=== PATIENT | female | born 1990 | race Caucasian/White ===

== ENCOUNTER → 2017-12-11 13:54 | Outpatient (REF) | payer MEDICAID, SELFPAY | LOC: LAB 13:54 | PROVIDERS: Visit Provider Physician Assistant | DX: R10.2 Pelvic and perineal pain (principal) | CPT/HCPCS: 87210 ==

== ENCOUNTER → 2018-10-21 17:06 | Outpatient (CLI) | payer MEDICAID, SELFPAY ==
[2018-10-21 17:50] LABS: Basophils % 0.5 % (0.1-2.0); Eosinophils # 0.1 K/mm3 (0.0-0.4); Hematocrit 42.5 % (37.0-47.0); Hemoglobin 14.4 g/dL (12.2-16.2); Lymphocytes % 34.5 % (10-50); Mean Corpuscular HGB Conc 33.9 g/dL (31.8-35.4); Mean Corpuscular Hemoglobin 30.7 pg (27.0-31.2); Mean Corpuscular Volume 90.4 fl (81-99); Mean Platelet Volume 9.2 fl (7.4-10.4); Monocytes # 0.3 K/mm3 (0.1-1.0); Neutrophils # 3.4 K/mm3 (1.8-7.8); Neutrophils % 59.1 % (37.0-80.0); Platelet Count 190 K/mm3 (142-424); Red Cell Distribution Width 13.3 % (11.5-17.5); White Blood Count 5.8 K/mm3 (4.8-10.8)
[2018-10-21 18:13] LABS: Alanine Aminotransferase 26 U/L (12-78); Albumin Level 3.7 gm/dL (3.4-5.0); Albumin/Globulin Ratio 1.2 (1.1-1.8); Alkaline Phosphatase 60 U/L (46-116); Anion Gap 12.7 mEq/L (5-15); Aspartate Amino Transferase 8 U/L (15-37); Bilirubin,Total 0.3 mg/dL (0.2-1.0); Blood Urea Nitrogen 8 mg/dL (7-18); Calcium 8.7 mg/dL (8.5-10.1); Carbon Dioxide 26 mmol/L (21.0-32.0); Chloride 105 mmol/L (98-107); Chol/HDL Ratio 3.4 (1-3.5); Cholesterol 134 mg/dL (140-200); Creatinine,Serum 0.86 mg/dL (0.55-1.02); Estimated Glomerular Filt Rate 78 ml/min (>60); Ferritin 14 ng/mL (8-388); GFR (African American) 94 ML/MIN (>60); Globulin 3.1 gm/dl (1.3-3.2); Glucose 67 mg/dL (74-106); HDL Cholesterol 40 mg/dL (29-89); LDL Cholesterol 79 mg/dL (0-130); Potassium 3.7 mmoL/L (3.5-5.1); Sodium 140 mmol/L (136-145); T4 (Thyroxine) 9.2 ug/dl (4.7-13.3); Thyroid Stimulating Hormone 1.19 uIU/ml (0.358-3.740); Total Protein,Serum 6.8 gm/dL (6.4-8.2); Triglycerides 76 mg/dL (30-200); VLDL Cholesterol 15 mg/dL (0-40)
[2018-10-23 08:28] LABS: Iron 49 ug/dL (27-159); UIBC 288 ug/dL (131-425)
[2018-10-23 14:40] LABS: Folate 4.8 ng/mL (>3.0); Iron Saturation 15 % (15-55); Vitamin B12 273 pg/mL (232-1245); Vitamin D 25 Hydroxy 21.4 ng/mL (30.0-100.0)
== END ==
PROVIDERS: Visit Provider Nurse Practitioner Family
DX: R42 Dizziness and giddiness (principal)
CPT/HCPCS: 80053; 80061; 82607; 82652; 82728; 82746; 83540; 83550; 84436; 84443; 85025

== ENCOUNTER → 2019-02-19 07:52 | Outpatient (CLI) | payer MEDICAID, SELFPAY ==
--- NOTE | 2019-02-19 07:54 | CT_ITS ---
CT head/brain wo con HISTORY: ITS.REASON: dizziness, H/A, vision loss ORDERING PHYSICIAN: KRYSTYNA Pelayo PATIENT AGE: 28 years COMPARISON: None TECHNIQUE: Axial images were obtained. Brain and bone windows reviewed. All CT scans at the facility use one or more dose reduction, viz: automated exposure control, ma/kV adjustment per patient size (including targeted exams where dose is matched to indication, i.e. head), or iterative reconstruction technique. FINDINGS: No midline shift, mass effect, intracranial hemorrhage, hydrocephalus, or extra-axial fluid collection is evident. The calvarium has an unremarkable appearance. No mastoid effusion. No sinus air-fluid levels.. IMPRESSION: Negative CT head without contrast. No acute finding
== END ==
PROVIDERS: PCP Physician Assistant; Visit Provider Physician Assistant
DX: H54.7 Unspecified visual loss (principal); R42 Dizziness and giddiness; R51 Headache
CPT/HCPCS: 70450

== ENCOUNTER → 2019-05-19 14:28 | Outpatient (CLI) | payer MEDICAID, SELFPAY ==
[2019-05-19 14:42] LABS: Basophils % 0.5 % (0.1-2.0); Eosinophils # 0.1 K/mm3 (0.0-0.4); Eosinophils % 0.8 % (0.1-12.0); Hematocrit 42.8 % (37.0-47.0); Hemoglobin 13.7 g/dL (12.2-16.2); Lymphocytes # 1.8 K/mm3 (0.7-4.5); Lymphocytes % 30.9 % (10-50); Mean Corpuscular Hemoglobin 29.7 pg (27.0-31.2); Mean Corpuscular Volume 93.1 fl (81-99); Mean Platelet Volume 9.9 fl (7.4-10.4); Monocytes # 0.4 K/mm3 (0.1-1.0); Neutrophils # 3.5 K/mm3 (1.8-7.8); Neutrophils % 60.8 % (37.0-80.0); Platelet Count 192 K/mm3 (142-424); Red Cell Distribution Width 13.6 % (11.5-17.5); White Blood Count 5.7 K/mm3 (4.8-10.8)
[2019-05-19 15:16] LABS: Alanine Aminotransferase 14 U/L (12-78); Albumin Level 3.8 gm/dL (3.4-5.0); Albumin/Globulin Ratio 1.4 (1.1-1.8); Alkaline Phosphatase 63 U/L (46-116); Anion Gap 14.8 mEq/L (5-15); Aspartate Amino Transferase 11 U/L (15-37); Bilirubin,Total 0.5 mg/dL (0.2-1.0); Blood Urea Nitrogen 7 mg/dL (7-18); Calcium 8.9 mg/dL (8.5-10.1); Carbon Dioxide 24 mmol/L (21.0-32.0); Chloride 105 mmol/L (98-107); Chol/HDL Ratio 3.8 (1-3.5); Cholesterol 122 mg/dL (140-200); Creatinine,Serum 0.71 mg/dL (0.55-1.02); Estimated Glomerular Filt Rate 97 ml/min (>60); GFR (African American) 117 ML/MIN (>60); Globulin 2.7 gm/dl (1.3-3.2); Glucose 82 mg/dL (74-106); HDL Cholesterol 32 mg/dL (29-89); LDL Cholesterol 76 mg/dL (0-130); Potassium 3.8 mmoL/L (3.5-5.1); Sodium 140 mmol/L (136-145); T4 (Thyroxine) 9.5 ug/dl (4.7-13.3); Thyroid Stimulating Hormone 0.73 uIU/ml (0.358-3.740); Total Protein,Serum 6.5 gm/dL (6.4-8.2); Triglycerides 68 mg/dL (30-200); VLDL Cholesterol 14 mg/dL (0-40)
[2019-05-21 16:44] LABS: FSH 4.6 mIU/mL (.); LH 3.1 mIU/mL (.); Prolactin 12.9 ng/mL (4.8-23.3); Vitamin D 25 Hydroxy 26.5 ng/mL (30.0-100.0)
[2019-05-23 07:43] LABS: Estrogen 227 pg/mL (.)
== END ==
PROVIDERS: Visit Provider Physician Assistant
DX: R63.5 Abnormal weight gain (principal); R53.83 Other fatigue; R51 Headache; R11.0 Nausea; R45.4 Irritability and anger; D17.20 Benign lipomatous neoplasm of skin and subcutaneous tissue of unspecified limb; E55.9 Vitamin D deficiency, unspecified; Z72.0 Tobacco use
CPT/HCPCS: 80053; 80061; 82652; 82672; 83001; 83002; 84146; 84436; 84443; 85025

== ENCOUNTER → 2019-06-10 07:54 | Outpatient (CLI) | payer MEDICAID, SELFPAY ==
--- NOTE | 2019-06-10 08:30 | US_ITS ---
PROCEDURE: US ABDOMEN COMPLETE CLINICAL INDICATION: nausea COMPARISON: RUQ US RUQ-(ABD LTD)1ORGAN/QUAD/FU from 12/03/2014 FINDINGS: PANCREAS: Unremarkable. No obvious mass or abnormal fluid collection. No ductal dilatation LIVER: The liver has a somewhat starry night appearance which is nonspecific but could be seen with hepatitis. Common bile duct is normal at 2 mm. Appropriate direction of blood flow noted within the non dilated portal vein RIGHT KIDNEY: Unremarkable. Normal size and echogenicity. No hydronephrosis LEFT KIDNEY: Unremarkable. Normal size and echogenicity. No hydronephrosis GALLBLADDER: Status post cholecystectomy AORTA: No evidence of aneurysmal dilatation. SPLEEN: Unremarkable. Normal size and echogenicity ASCITES: None demonstrated. IMPRESSION: Starry night appearance of the liver which could be seen with hepatitis. Prior cholecystectomy otherwise negative Dictated by: Raman Roque MD 06/10/2019 18:07 Electronically signed by Raman Roque MD in [place] 06/10/2019 18:07
== END ==
PROVIDERS: PCP Physician Assistant; Visit Provider Nurse Practitioner Family
DX: R11.2 Nausea with vomiting, unspecified (principal)
CPT/HCPCS: 76700

== ENCOUNTER → 2019-06-12 15:47 | Outpatient (CLI) | payer MEDICAID, SELFPAY ==
[2019-06-12 15:59] LABS: Basophils % 0.6 % (0.1-2.0); Eosinophils # 0.1 K/mm3 (0.0-0.4); Eosinophils % 1.1 % (0.1-12.0); Hematocrit 49.5 % (37.0-47.0); Hemoglobin 15.7 g/dL (12.2-16.2); Lymphocytes # 1.7 K/mm3 (0.7-4.5); Lymphocytes % 30.8 % (10-50); Mean Corpuscular HGB Conc 31.6 g/dL (31.8-35.4); Mean Corpuscular Volume 94.8 fl (81-99); Mean Platelet Volume 9.3 fl (7.4-10.4); Monocytes # 0.4 K/mm3 (0.1-1.0); Monocytes % 6.5 % (1.7-9.3); Neutrophils # 3.3 K/mm3 (1.8-7.8); Platelet Count 205 K/mm3 (142-424); Red Blood Count 5.23 M/mm3 (4.20-5.40); Red Cell Distribution Width 12.8 % (11.5-17.5); White Blood Count 5.5 K/mm3 (4.8-10.8)
[2019-06-12 17:31] LABS: Alanine Aminotransferase 22 U/L (12-78); Albumin/Globulin Ratio 1.3 (1.1-1.8); Alkaline Phosphatase 67 U/L (46-116); Anion Gap 14.7 mEq/L (5-15); Aspartate Amino Transferase 8 U/L (15-37); Bilirubin,Total 0.4 mg/dL (0.2-1.0); Blood Urea Nitrogen 8 mg/dL (7-18); Calcium 8.9 mg/dL (8.5-10.1); Carbon Dioxide 23 mmol/L (21.0-32.0); Chloride 105 mmol/L (98-107); Creatinine,Serum 0.77 mg/dL (0.55-1.02); Estimated Glomerular Filt Rate 88 ml/min (>60); GFR (African American) 107 ML/MIN (>60); Globulin 3.1 gm/dl (1.3-3.2); Glucose 86 mg/dL (74-106); Potassium 3.7 mmoL/L (3.5-5.1); Sodium 139 mmol/L (136-145); Total Protein,Serum 7.1 gm/dL (6.4-8.2)
[2019-06-14 04:07] LABS: Hep A Ab, IgM Negative (Negative); Hep A Ab, Total Negative (Negative); Hep B Core Ab, Total Negative (Negative)
[2019-06-14 18:52] LABS: Hep B Surface Ab, Qual Non Reactive (.); Hepatitis B Surface Antigen Negative (Negative); Hepatitis C Antibody <0.1 s/co ratio (0.0-0.9)
== END ==
PROVIDERS: Visit Provider Nurse Practitioner Family
DX: R10.9 Unspecified abdominal pain (principal); R42 Dizziness and giddiness; R11.2 Nausea with vomiting, unspecified
CPT/HCPCS: 36415; 80053; 85025; 86704; 86706; 86708; 87340; 87380

== ENCOUNTER → 2019-08-29 13:06 | Outpatient (CLI) | payer OTHER, SELFPAY ==
[2019-08-29 14:00] LABS: Monoscreen (Rapid) Negative (Negative)
== END ==
PROVIDERS: Visit Provider Nurse Practitioner Family
DX: R53.83 Other fatigue (principal)
CPT/HCPCS: 36415; 86318

== ENCOUNTER 2019-12-02 23:38 | Emergency (ER) | payer OTHER, SELFPAY ==
[2019-12-02 23:58] VITALS: BP 118/79; PULSE 92; RESP 14; TEMP 37; O2SAT 100; BMI 27.3
--- NOTE | 2019-12-03 00:19 | HMH.EDSKAF ---
ED Disposition Clinical Impression: Urticaria Disposition: Home, Self-Care Condition on Discharge: Good Instructions: DI for Hives Additional Instructions: call pcp for follow up Prescriptions: predniSONE [Prednisone 20mg Tab] 20 mg PO BID #10 tab Transmission Status: Pending to [id number] Referrals: Leilani Henry PA [Primary Care Provider] - - Critical Care Critical Care Time: No Attestation: On 12/02/19, the high probability of a clinically significant, sudden or life threatening deterioration of the following system(s) required my full and direct attention, intervention and personal management. The time I documented below is in addition to time spent performing reported procedures but includes the following listed in this critical care notation. Medical Decision Making - Medical Records Medical records reviewed: Yes: I reviewed the patient's medical records. - David Inquiry Pt receiving controlled substance: No Vital Signs: 12/02/19 23:58 Temperature 98.6 F Temperature Source Oral Pulse Rate [Right Brachial] 92 H Respiratory Rate 14 Blood Pressure [Right Arm] 118/79 Blood Pressure Mean [Right Arm] 92 Blood Pressure Source [Right Arm] Automatic Cuff Blood Pressure Position [Right Arm] Sitting 02 Sat by Pulse Oximetry 100 Oxygen Delivery Method Room Air - Lab Data Lab results reviewed: Yes: I reviewed the patient's lab results. Orders (Tests/Meds): ED MEDICATIONS Discontinued Medications Generic Name Dose Route Start Last Admin Trade Name Elda PRN Reason Stop Dose Admin Prednisone 20 mg 12/03/19 00:06 12/03/19 00:12 Deltasone 20mg Tablet PO 12/03/19 00:07 20 mg ONCE ONE Administration Skin/Abscess/FB HPI - General Chief complaint: Skin/Abscess/Foreign Body Stated complaint: whelps on left leg and back Time Seen by Provider: 12/03/19 00:00 Mode of Arrival: Ambulatory Source of Information: Patient, Medical Record Limitations: No Limitations Description of Symptoms (Recalled from ER Triage Doc. by RN): Patient reports a welt that showed up around 1300 on her popliteal area of her left leg and then another that showed up her on right side. Patient reports she took some liquid benedryl and an oatmeal bath but no relief of the itching or redness. - History of Present Illness HPI narrative: possible bite to rt flank and lt lower leg with no mm or wheezing and no fever MD complaint: insect bite/sting Onset (ago): hour(s) Tetanus up to date: unsure Location: LLE Severity: moderate Associated symptoms: denies other symptoms Treatments prior to arrival: Benadryl - Related Data Previous Rx's Medication Instructions Recorded naproxen 500 mg tablet 500 mg PO BID 14 Days #28 tab 11/24/19 prednisone 20 mg tablet 20 mg PO BID 5 Days #10 tab 11/24/19 predniSONE [Prednisone 20mg 20 mg PO BID #10 tab 12/03/19 Tab] Allergies Allergy/AdvReac Type Severity Reaction Status Date / Time No Known Allergies Allergy Verified 11/24/19 10:47 [facility] History - Hepatitis A Screen Drug use history?: No High risk sexual behaviors?: No History of sexually transmitted infection?: No Currently employed?: No Childcare worker?: No Do you have indoor plumbing?: Yes Do you have electricity?: Yes Attestation statement:: This patient has been screened for Hepatitis A risk factors. I have reviewed the patient's past medical history: Yes Medical History: Reports:: Asthma, Diabetes Mellitus Type 2, Migraine Denies:: Cancer, Diabetes Mellitus Type 1, MRSA Other Medical History: Reports: Anemia Other Surgeries: Yes: Cholecystectomy, , Tubal Ligation, Other Amputation: No Fractures: No Comment: Gallbladder - Social History Smoking Status: Current every day smoker Tobacco Type: cigarettes # Packs/Day (cigarettes): 1 Alcohol Intake: never Alcohol Intake Frequency:: other Substance Use Type: denies use Occupational Status: unemploy
[2019-12-03 00:28] VITALS: BP 121/85; PULSE 84; RESP 14; TEMP 37; O2SAT 98
== END 2019-12-03 00:32 | disposition home or self-care (01) ==
PROVIDERS: Emergency Provider Emergency Medicine; PCP Physician Assistant
DX: L50.9 Urticaria, unspecified (principal); J45.909 Unspecified asthma, uncomplicated; E11.9 Type 2 diabetes mellitus without complications; G43.909 Migraine, unspecified, not intractable, without status migrainosus; F17.210 Nicotine dependence, cigarettes, uncomplicated; Z90.49 Acquired absence of other specified parts of digestive tract
CPT/HCPCS: 99281

== ENCOUNTER 2019-12-15 02:48 | Emergency (ER) | payer OTHER, SELFPAY ==
--- NOTE | 2019-12-15 03:08 | CT_ITS ---
PROCEDURE: CT ABDOMEN PELVIS WO CON CLINICAL INDICATION: r/o kidney stone Abdominal pain, left-sided flank pain COMPARISON: CT ABDOMEN PELVIS WO CON from 08/28/2019 TECHNIQUE: Axial images obtained with sagittal and coronal reformats. All CT scans at the facility use one or more dose reduction, viz: automated exposure control, ma/kV adjustment per patient size (including targeted exams where dose is matched to indication, i.e. head), or iterative reconstruction technique. FINDINGS: LOWER THORAX: No acute finding ABDOMEN & PELVIS: Post cholecystectomy change. The liver, adrenal glands, pancreas, and kidneys have an unremarkable appearance. No renal or ureteral calculi. No hydronephrosis. There is mild splenomegaly at 13 cm. No evidence of appendicitis, intestinal obstruction, free air or diverticulitis. There is some minimal thickening of small bowel loops noted in the pelvis nonspecific and could be due to nondistention. There is a small umbilical hernia which contains fat. No acute bony anomalies. IMPRESSION: 1. No renal or ureteral calculi. No hydronephrosis. 2. Mild splenomegaly. 3. Minimally thickened small bowel loops in the pelvis nonspecific and could be due to non distention or inflammation/enteritis. Repeat study with IV and oral contrast/CT enterography may provide further evaluation. Dictated by: Raman Roque MD 12/15/2019 08:39 Electronically signed by Raman Roque MD in [place] 12/15/2019 08:39
[2019-12-15 03:14] LABS: Microscopic, Urine URINE MICROSCOPIC (MICROSCOPIC)
[2019-12-15 03:16] LABS: Appearance,Urine CLEAR (Clear); Bilirubin,Urine Negative (Negative); Blood, Urine 2+ (Negative); Color,Urine YELLOW (Yellow); Glucose,Urine (UA) Negative (Negative); Ketones,Urine Negative (Negative); Leukocyte Esterase,Urine Negative (Negative); Nitrate,Urine Negative (Negative); Protein,Urine Negative (Negative); Specific Gravity, Urine >= 1.030 (1.005-1.030); Urobilinogen,Urine 0.2 EU/dl (0.2)
[2019-12-15 03:17] LABS: Basophils # 0.1 K/mm3 (0-0.2); Basophils % 0.8 % (0.1-2.0); Eosinophils # 0.1 K/mm3 (0.0-0.4); Eosinophils % 1.7 % (0.1-12.0); Hematocrit 44.3 % (37.0-47.0); Hemoglobin 14.6 g/dL (12.2-16.2); Mean Corpuscular HGB Conc 32.9 g/dL (31.8-35.4); Mean Corpuscular Hemoglobin 30.4 pg (27.0-31.2); Mean Corpuscular Volume 92.4 fl (81-99); Mean Platelet Volume 8.7 fl (7.4-10.4); Monocytes # 0.3 K/mm3 (0.1-1.0); Neutrophils # 3.7 K/mm3 (1.8-7.8); Neutrophils % 60.4 % (37.0-80.0); Platelet Count 180 K/mm3 (142-424); Red Blood Count 4.79 M/mm3 (4.20-5.40); Red Cell Distribution Width 12.9 % (11.5-17.5); White Blood Count 6.2 K/mm3 (4.8-10.8)
[2019-12-15 03:20] LABS: Amorphous Sediment,Urine 1+ /lpf; Mucus,Urine 4+ /lpf
[2019-12-15 03:25] LABS: Alanine Aminotransferase 17 U/L (12-78); Albumin Level 4.1 g/dl (3.5-5.0); Albumin/Globulin Ratio 1.5 (1.1-1.8); Alkaline Phosphatase 49 U/L (38-126); Aspartate Amino Transferase 22 U/L (14-36); Blood Urea Nitrogen 8 mg/dl (7-17); Calcium 9.2 mg/dl (8.4-10.2); Chloride 107 mmol/L (98-107); Estimated Glomerular Filt Rate 98 ml/min (>60); GFR (African American) 119 ML/MIN (>60); Globulin 2.7 g/dL (1.3-3.2); Glucose 115 mg/dl (74-100); Potassium 3.3 mmoL/L (3.5-5.1); Sodium 137 mmol/L (136-145); Total Protein,Serum 6.8 g/dl (6.3-8.2)
[2019-12-15 03:26] LABS: Anion Gap 9.3 mEq/L (5-15); Carbon Dioxide 24 mmol/L (22.0-30.0)
[2019-12-15 03:31] VITALS: BP 130/75; PULSE 78; RESP 14; TEMP 36.7; O2SAT 99; BMI 27.3
[2019-12-15 03:32] LABS: Bilirubin,Total 0.1 mg/dl (0.2-1.3)
--- NOTE | 2019-12-15 04:08 | HMH.EDGENADL ---
ED Disposition Clinical Impression: Thoracic back pain, Flank pain, acute, Costochondritis, acute Disposition: Home, Self-Care Condition on Discharge: Good Instructions: DI for Acute Pain -- Adult Prescriptions: Nabumetone 750 mg PO BID 10 Days #20 tab Transmission Status: Pending to [facility] Tizanidine HCl [Zanaflex 4mg tab] 4 mg PO TID PRN 6 Days #25 tab PRN Reason: Mild Pain Transmission Status: Pending to [facility] Referrals: Leilani Henry PA [Primary Care Provider] - - Critical Care Critical Care Time: No Attestation: On 12/15/19, the high probability of a clinically significant, sudden or life threatening deterioration of the following system(s) required my full and direct attention, intervention and personal management. The time I documented below is in addition to time spent performing reported procedures but includes the following listed in this critical care notation. Medical Decision Making - Medical Records Medical records reviewed: Yes: I reviewed the patient's medical records. - David Inquiry Pt receiving controlled substance: No Vital Signs: 12/15/19 03:31 Temperature 98.0 F Temperature Source Oral Pulse Rate [Right] 78 Respiratory Rate 14 Blood Pressure [Right Arm] 130/75 Blood Pressure Mean [Right Arm] 93 Blood Pressure Source [Right Arm] Automatic Cuff Blood Pressure Position [Right Arm] Sitting 02 Sat by Pulse Oximetry 99 Oxygen Delivery Method Room Air - Lab Data Lab results reviewed: Yes: I reviewed the patient's lab results. Lab Results 12/15/19 02:55: Urine Color Yellow, Urine Appearance Clear, Urine pH 6.0, Ur Specific [place] >= 1.030, Urine Protein Negative, Urine Glucose (UA) Negative, Urine Ketones Negative, Urine Blood 2+, Urine Nitrate Negative, Urine Bilirubin Negative, Urine Urobilinogen 0.2, Ur Leukocyte Esterase Negative, Urine RBC 3-5, Ur Squamous Epith Cells 10-20, Amorphous Sediment 1+, Urine Mucus 4+ 12/15/19 03:05: WBC 6.2, RBC 4.79, Hgb 14.6, Hct 44.3, MCV 92.4, MCH 30.4, MCHC 32.9, RDW 12.9, Plt Count 180, MPV 8.7, Neut % (Auto) 60.4, Lymph % (Auto) 32.0, [place] % (Auto) 5.0, Eos % (Auto) 1.7, Baso % (Auto) 0.8, Neut # (Auto) 3.7, Lymph # (Auto) 2.0, [place] # (Auto) 0.3, Eos # (Auto) 0.1, Baso # (Auto) 0.1 12/15/19 03:05: Sodium 137, Potassium 3.3 L, Chloride 107, Carbon Dioxide 24, Anion Gap 9.3, BUN 8, Creatinine 0.70, Estimated GFR 98, Est GFR ( Amer) 119, Glucose 115 H, Calcium 9.2, Total Bilirubin 0.1 L, AST 22, ALT 17, Alkaline Phosphatase 49, Total Protein 6.8, Albumin 4.1, Globulin 2.7, Albumin/Globulin Ratio 1.5 Result diagrams: 12/15/19 03:05 12/15/19 03:05 Orders (Tests/Meds): ED MEDICATIONS Generic Name Dose Route Start Last Admin Trade Name Freq PRN Reason Stop Dose Admin Sodium Chloride 1,000 mls @ 999 mls/hr 12/15/19 03:45 12/15/19 03:39 Sod Chlor 0.9% 1000ml Bag IV 12/15/19 04:45 999 mls/hr .Q1H1M CHARLIE Administration Discontinued Medications Generic Name Dose Route Start Last Admin Trade Name Freq PRN Reason Stop Dose Admin Ketorolac Tromethamine 30 mg 12/15/19 03:37 12/15/19 03:38 Toradol 30mg/Ml Vial IV 12/15/19 03:38 30 mg ONCE ONE Administration ORDERS Category Date Time Status CT abdomen pelvis wo con Stat Cat Scan 12/15/19 03:08 Taken - CT Data CT Scan: Abdomen, Pelvis Time Received: 04:11 Preliminary Findings: Normal/NAD Medical Decision Narrative: Patient improved with Toradol. She states her pain went from 7-8 out of 10 down to 3 out of 10. General Adult HPI - General Chief complaint: PAIN Stated complaint: ? kidney stone Time Seen by Provider: 12/15/19 04:00 Mode of Arrival: Ambulatory Source of Information: Patient Limitations: No Limitations Description of Symptoms (Recalled from ER Triage Doc. by RN): Pt states she woke up this evening with left flank pain - History of Present Illness HPI narrative: 29-year-old femal
[2019-12-15 04:14] VITALS: BP 115/76; PULSE 82; RESP 16; O2SAT 98
[2019-12-15 04:23] VITALS: BP 115/76; PULSE 86; RESP 16; TEMP 36.7; O2SAT 98
== END 2019-12-15 04:25 | disposition home or self-care (01) ==
PROVIDERS: Emergency Provider Family Medicine; PCP Physician Assistant
DX: M54.6 Pain in thoracic spine (principal); M94.0 Chondrocostal junction syndrome [Tietze]; J45.909 Unspecified asthma, uncomplicated; G43.709 Chronic migraine without aura, not intractable, without status migrainosus; F17.210 Nicotine dependence, cigarettes, uncomplicated
CPT/HCPCS: 74176; 80053; 81001; 85025; 96365; 96375; 99283

== ENCOUNTER → 2019-12-25 14:24 | Outpatient (CLI) | payer OTHER, SELFPAY ==
--- NOTE | 2019-12-25 14:30 | XR_ITS ---
PROCEDURE: XR THORACIC SPINE 3V CLINICAL INDICATION: back pain Back pain COMPARISON: No exams were available for comparison FINDINGS: Minimal levocurvature of the midthoracic spine. No fracture or dislocation. No lytic or blastic change. No significant degenerative change. IMPRESSION: Minimal levocurvature otherwise negative Dictated by: Raman Roque MD 12/25/2019 15:16 Electronically signed by Raman oRque MD in [place] 12/25/2019 15:16
--- NOTE | 2019-12-25 14:30 | XR_ITS ---
PROCEDURE: XR LUMBAR SPINE 6V W BENDING CLINICAL INDICATION: back pain Back pain COMPARISON: XR THORACIC SPINE 3V from 12/25/2019 FINDINGS: There are minimal degenerative changes at T12-L1. The lower lumbar spine has an unremarkable appearance. No fracture or dislocation. No lytic or blastic change. Flexion and extension views show no abnormal subluxation IMPRESSION: Mild degenerative changes in the thoracolumbar junction otherwise negative with no abnormal subluxation in flexion or extension Dictated by: Raman Roque MD 12/25/2019 15:18 Electronically signed by Raman Roque MD in [place] 12/25/2019 15:18
== END ==
PROVIDERS: PCP Physician Assistant; Visit Provider Physician Assistant
DX: M54.6 Pain in thoracic spine (principal); M54.5 Low back pain
CPT/HCPCS: 72072; 72114

== ENCOUNTER → 2020-01-13 08:08 | Outpatient (CLI) | payer OTHER, SELFPAY ==
--- NOTE | 2020-01-13 08:08 | MR_ITS ---
PROCEDURE: MR THORACIC SPINE WO CON CLINICAL INDICATION: back pain Mid to low back pain COMPARISON: XR THORACIC SPINE 3V from 12/25/2019 TECHNIQUE: Routine multiplanar multi echo sequences are performed without gadolinium enhancement. FINDINGS: There is normal alignment. No acute fracture or dislocation is evident. The spinal cord ends at the T12-L1 level. There is mild levocurvature of the thoracic spine in its mid aspect. No lytic or blastic changes. No canal stenosis or extruded herniated discs. No epidural defects apparent the IMPRESSION: Minimal levocurvature of the midthoracic spine otherwise negative MRI of the thoracic spine. Dictated by: Raman Roque MD 01/14/2020 12:13 Electronically signed by Raman Roque MD in [place] 01/14/2020 12:13
== END ==
PROVIDERS: PCP Physician Assistant; Visit Provider Nurse Practitioner Family
DX: M54.6 Pain in thoracic spine (principal)
CPT/HCPCS: 72146

== ENCOUNTER 2020-01-22 11:00 | Outpatient (RCR) | payer OTHER, SELFPAY ==
--- NOTE | 2020-01-13 10:45 | HMH.PTOPEV ---
PT Outpatient Evaluation Rehab PT Outpatient Evaluation Start: 01/13/20 09:57 Freq: Status: Active Protocol: Document 01/13/20 10:33 KIMBERLY (Rec: 01/13/20 10:45 KIMBERLY [id number]) Electronically Signed By Ricardo Spangler, PT 01/13/20 10:33 Outpatient Therapy Subjective History Subjective History This is the initial Physical Therapy evaluation for Juli Lui. Pt is a 29 y/o female referred to PT for c/o L low back and posterior L flank pain. Pt reports inisidious onset of pain in august. Pt reports it felt like a kidney stone. Pt rpeorts after 3-4 days pain resolved. Pt reports pain returned in end of Sep, beginning of october w/ out trauma or known cause. Pt reports pain has been consistent since that time. Pt reports she has had MRI and XR. Chief Complaint Pain,Spasms,Stiff Symptom Type Ache,Throb,Sharp,Dull,Stabbing ,Burning,Numbness,Tingling, Shooting Symptoms Relieved By Rest/Positioning,Heat,OTC Meds Symptoms Aggravated By Bending/Stooping,Physical Activity,Twisting Prior Functional Limitations None Current Functional Limitations Lifting,Housework,Recreation Activity,Bending/Stooping Symptom Description Constant but Variable Level of pain today (0-10) 5 Pain scale - at its best (0-10) 3 Pain scale - at its worst (0-10) 9 Lumbopelvic Eval Posture Thoracic Spine Posture Standing Position Flexible Scoliosis on (L), Increased Kyphosis Lumbar Spine Posture Standing Position Flattened Assistive device Assistive Devices None / NA Palapation tenderness left lumbar spinal tenderness Yes paraspinal tenderness Yes buttock tenderness Yes Lumbar/Sacral Palpation Findings Tenderness Lumbar/Sacral Palpation Overall Comment TTP L SIJ Post lig Range of Motion Lumbar Spine ROM Reason Not Measured Within Functional Limits Special Tests Lumbar Spine Screen Positive Forward Bending Test- Standing Negative Left,Negative Right Hip Sitting Root Test Negative Left,Negative Right Sciatic Nerve Tension Test Negative Left,Negative Right Unilateral Straight Leg Raise (Lasegue) Negative Left,Negative Right Test Sacroiliac Joint Compression Test Posit
== END 2020-01-22 11:05 | disposition home or self-care (01) ==
LOC: PT 11:00
PROVIDERS: PCP Physician Assistant; Visit Provider Nurse Practitioner Family
DX: M54.6 Pain in thoracic spine (principal)
CPT/HCPCS: 97163

== ENCOUNTER → 2020-01-22 14:52 | Outpatient (CLI) | payer OTHER, SELFPAY | PROVIDERS: Visit Provider Physician Assistant | DX: N89.8 Other specified noninflammatory disorders of vagina (principal) | CPT/HCPCS: 87210 ==

== ENCOUNTER 2020-01-28 21:30 | Emergency (ER) | payer OTHER, SELFPAY ==
[2020-01-28 21:31] VITALS: BP 128/90; PULSE 103; RESP 16; TEMP 36.7; O2SAT 100; BMI 27.1
--- NOTE | 2020-01-28 21:40 | ECG_ITS ---
APPROVED REPORT Exam: Resting ECG HR:77 bpm ECG Measurements Heart Rate 77 AXES MI 140 P 54 QRSd 78 QRS 38 QT 388 T 53 QTc 439 <Conclusion> Normal sinus rhythm with sinus arrhythmia Incomplete RBBB Otherwise a normal ECG Electronically signed by : Luis Antonio Glover, 01/30/2020 11:41:37
--- NOTE | 2020-01-28 21:47 | XR_ITS ---
PROCEDURE: XR CHEST 2V CLINICAL HISTORY: palpitations Smoker COMPARISON: CXR2V XR chest 2V from 10/25/2018 Chest from 02/26/2019 XR CHEST 2V from 08/01/2019 FINDINGS: The cardiomediastinal silhouette and pulmonary vascularity are within normal limits. The lungs are clear without infiltrates, suspicious nodules, or pleural effusions. No acute bony abnormalities. IMPRESSION: No acute findings. Dictated by: Raman Roque MD 01/29/2020 08:20 Electronically signed by Raman Roque MD in [place] 01/29/2020 08:20
[2020-01-28 21:57] LABS: Microscopic, Urine URINE MICROSCOPIC (MICROSCOPIC)
--- NOTE | 2020-01-28 21:58 | HMH.EDANX ---
ED Disposition Clinical Impression: Palpitation Disposition: Home, Self-Care Condition on Discharge: Good Instructions: DI for Palpitations Additional Instructions: use meds and see pcp for follow up Prescriptions: clonazePAM [Klonopin 0.5mg tablet] 0.5 mg PO TID #15 tab Prescription Printed Referrals: Leilani Henry PA [Primary Care Provider] - - Critical Care Critical Care Time: No Attestation: On 01/28/20, the high probability of a clinically significant, sudden or life threatening deterioration of the following system(s) required my full and direct attention, intervention and personal management. The time I documented below is in addition to time spent performing reported procedures but includes the following listed in this critical care notation. Medical Decision Making - Medical Records Medical records reviewed: Yes: I reviewed the patient's medical records. - David Inquiry Pt receiving controlled substance: No Vital Signs: 01/28/20 21:31 01/28/20 22:17 01/28/20 22:49 Temperature 98.1 F Temperature Source Oral Pulse Rate [Left Radial] 103 H 80 102 H Respiratory Rate 16 20 18 Blood Pressure [Right Arm] 128/90 125/81 122/95 H Blood Pressure Mean [Right Arm] 102 95 104 Blood Pressure Source [Right Arm] Automatic Cuff Blood Pressure Position [Right Arm] Sitting 02 Sat by Pulse Oximetry 100 97 99 Oxygen Delivery Method Room Air Room Air Room Air - Lab Data Lab results reviewed: Yes: I reviewed the patient's lab results. Lab Results 01/28/20 21:50: WBC 7.3, RBC 4.51, Hgb 14.2, Hct 42.1, MCV 93.4, MCH 31.5 H, MCHC 33.7, RDW 13.5, Plt Count 174, MPV 9.0, Neut % (Auto) 59.4, Lymph % (Auto) 33.5, [place] % (Auto) 5.3, Eos % (Auto) 1.2, Baso % (Auto) 0.6, Neut # (Auto) 4.3, Lymph # (Auto) 2.4, [place] # (Auto) 0.4, Eos # (Auto) 0.1, Baso # (Auto) 0.0 01/28/20 21:50: Sodium 139, Potassium 3.4 L, Chloride 106, Carbon Dioxide 24, Anion Gap 12.4, BUN 9, Creatinine 0.90, Estimated Creat Clear 94, Estimated GFR 74, Est GFR ( Amer) 89, Glucose 115 H, Calcium 9.0, Troponin I < 0.01 01/28/20 21:50: TSH 2.02, Thyroxine (T4) 9.7 01/28/20 21:54: Urine Color Yellow, Urine Appearance Clear, Urine pH 6.0, Ur Specific [place] >= 1.030, Urine Protein Negative, Urine Glucose (UA) Negative, Urine Ketones Negative, Urine Blood 2+, Urine Nitrate Negative, Urine Bilirubin Negative, Urine Urobilinogen 2.0, Ur Leukocyte Esterase Negative, Urine WBC Occasional, Ur Squamous Epith Cells 3-5, Urine Bacteria Trace 01/28/20 22:09: Urine Opiates Screen Negative, Urine Methadone Screen Negative, Ur Barbituates Screen Negative, Ur Phencyclidine Scrn Negative, Ur Amphetamines Screen Negative, U Benzodiazepines Scrn Negative, Urine Cocaine Screen Negative, U Marijuana (THC) Screen Negative Result diagrams: 01/28/20 21:50 01/28/20 21:50 Orders (Tests/Meds): ED MEDICATIONS Generic Name Dose Route Start Last Admin Trade Name Freq PRN Reason Stop Dose Admin Sodium Chloride 1,000 mls @ 999 mls/hr 01/28/20 22:00 01/28/20 22:25 Sod Chlor 0.9% 1000ml Bag IV 01/28/20 23:00 999 mls/hr .Q1H1M CHARLIE Administration Sodium Chloride 10 ml 01/28/20 22:11 Sodium Chloride 0.9% 10ml Vial IV 02/27/20 22:10 NEEDED PRN to Dilute Lorazepam inj Discontinued Medications Generic Name Dose Route Start Last Admin Trade Name Freq PRN Reason Stop Dose Admin Lorazepam 0.5 mg 01/28/20 22:11 01/28/20 22:25 Ativan 2mg/Ml Vial IV 01/28/20 22:12 0.5 mg ONCE ONE Administration Ondansetron HCl 4 mg 01/28/20 21:49 01/28/20 22:24 Zofran 4mg/2ml Vial IV 01/28/20 21:50 4 mg ONCE ONE Administration ORDERS Category Date Time Status XR chest 2V Stat Exams 01/28/20 21:47 Taken Troponin I Q3H Lab 01/29/20 01:00 Ordered Troponin I Q3H Lab 01/29/20 04:00 Ordered - Radiology Data #1 Image(s): Chest Image Reviewed: Yes I reviewed the patient's radiology image Preliminary Findin
[2020-01-28 22:02] LABS: Basophils % 0.6 % (0.1-2.0); Eosinophils # 0.1 K/mm3 (0.0-0.4); Eosinophils % 1.2 % (0.1-12.0); Hematocrit 42.1 % (37.0-47.0); Hemoglobin 14.2 g/dL (12.2-16.2); Lymphocytes # 2.4 K/mm3 (0.7-4.5); Lymphocytes % 33.5 % (10-50); Mean Corpuscular HGB Conc 33.7 g/dL (31.8-35.4); Mean Corpuscular Hemoglobin 31.5 pg (27.0-31.2); Mean Corpuscular Volume 93.4 fl (81-99); Monocytes # 0.4 K/mm3 (0.1-1.0); Monocytes % 5.3 % (1.7-9.3); Neutrophils # 4.3 K/mm3 (1.8-7.8); Neutrophils % 59.4 % (37.0-80.0); Platelet Count 174 K/mm3 (142-424); Red Blood Count 4.51 M/mm3 (4.20-5.40); Red Cell Distribution Width 13.5 % (11.5-17.5); White Blood Count 7.3 K/mm3 (4.8-10.8)
[2020-01-28 22:06] LABS: Appearance,Urine CLEAR (Clear); Bilirubin,Urine Negative (Negative); Blood, Urine 2+ (Negative); Color,Urine YELLOW (Yellow); Glucose,Urine (UA) Negative (Negative); Ketones,Urine Negative (Negative); Leukocyte Esterase,Urine Negative (Negative); Nitrate,Urine Negative (Negative); Protein,Urine Negative (Negative); Specific Gravity, Urine >= 1.030 (1.005-1.030)
[2020-01-28 22:16] LABS: Bacteria,Urine Trace /lpf; WBC,Urine Occasional #/hpf (0-3)
[2020-01-28 22:17] VITALS: BP 125/81; PULSE 80; RESP 20; O2SAT 97
[2020-01-28 22:32] LABS: Barbiturates Screen,Urine Negative ng/ml (<200); Benzodiazepines Screen,Urine Negative ng/ml (<200)
[2020-01-28 22:33] LABS: Amphetamine/Metha Screen,Urine Negative ng/ml (<1000); Cannabinoid Screen,Urine Negative ng/ml (<50)
[2020-01-28 22:34] LABS: Cocaine Screen,Urine Negative ng/ml (<300)
[2020-01-28 22:35] LABS: Methadone Screen,Urine Negative ng/ml (<300); Opiate Screen,Urine Negative ng/ml (<300)
[2020-01-28 22:36] LABS: Phencyclidine Screen,Urine Negative ng/ml (<25)
[2020-01-28 22:49] VITALS: BP 122/95; PULSE 102; RESP 18; O2SAT 99
[2020-01-28 22:55] LABS: Anion Gap 12.4 mEq/L (5-15); Blood Urea Nitrogen 9 mg/dl (7-17); Carbon Dioxide 24 mmol/L (22.0-30.0); Chloride 106 mmol/L (98-107); Creatinine Clearance Estimated 94 mL/min (50-200); Estimated Glomerular Filt Rate 74 ml/min (>60); GFR (African American) 89 ML/MIN (>60); Glucose 115 mg/dl (74-100); Potassium 3.4 mmoL/L (3.5-5.1); Sodium 139 mmol/L (136-145)
[2020-01-28 22:56] LABS: T4 (Thyroxine) 9.7 ug/dl (5.53-11.0)
[2020-01-28 23:07] LABS: Troponin I < 0.01 ng/ml (0.00-0.034)
[2020-01-28 23:09] LABS: Thyroid Stimulating Hormone 2.02 uIU/mL (0.465-4.68)
[2020-01-28 23:44] VITALS: BP 106/64; PULSE 85; RESP 16; TEMP 37; O2SAT 98
== END 2020-01-28 23:46 | disposition home or self-care (01) ==
PROVIDERS: Emergency Provider Emergency Medicine; PCP Physician Assistant
DX: R00.2 Palpitations (principal); F41.0 Panic disorder [episodic paroxysmal anxiety]; J45.909 Unspecified asthma, uncomplicated; F17.210 Nicotine dependence, cigarettes, uncomplicated
CPT/HCPCS: 71046; 80048; 80305; 81001; 84436; 84443; 84484; 85025; 93005; 96365; 96375; 99284; J2405

== ENCOUNTER → 2020-01-30 13:14 | Outpatient (CLI) | payer OTHER, SELFPAY | PROVIDERS: PCP Emergency Medicine; Visit Provider Emergency Medicine | DX: R00.2 Palpitations (principal) | CPT/HCPCS: 93225; 93226 ==

== ENCOUNTER → 2020-02-18 13:58 | Outpatient (CLI) | payer OTHER, SELFPAY ==
--- NOTE | 2020-02-18 13:59 | CA_ITS ---
APPROVED REPORT Exam: Exercise Treadmill Technologist: Christina Costa, Ht: 5 ft 1 in Wt: 142 lbs BSA: 1.63 m2 HR: 83 bpm BP: 115/78 mmHg Rhythm: NSR, SHORT AR INTERVAL Medical History Medical History: Smoking Medications: Lexapro,,,,, Vistaril,,,,, Zofran,,,,, NadoOLOL,,,,, Cardiac Risk Factors: FHX of CAD, Smoking Stress Test Details Test: Kiko HR Resting HR: 92 bpm Max Heart Rate (APMHR): 190 bpm Max HR Achieved: 169 bpm Target HR (85% APMHR): 161 bpm % of APMHR: 88 Recovery HR: 108 bpm BP Resting BP: 115.0/78.0 mmHg Max BP: 175.0/80.0 mmHg Recovery BP: 139.0/94.0 mmHg ECG Resting ECG: NSR, SHIRT AR INTERVAL Clinical Exercise duration: 09:41 min Highest Stage Achieved: Exercise capacity: 10.1 METs Stress ECG Conclusion PATIENT EXERCISED 9:41 ON KIKO PROTOCOL WITH MAX HEART RATE 169 BPM WHICH IS 89% OF PM FOR AGE. MAX BP 175/80. METS = 10.1. TEST STOPPED DUE TO SOA AND LEG FATIGUE. NO CHEST PAIN. NO ARRHYTHMIAS/ECTOPY. NORMAL ST RESPONSE TO EXERCISE. NORMAL GXT. GXT ONLY(NO IMAGING) Electronically signed by : Tony Johnson, 02/23/2020 12:53:39
== END ==
PROVIDERS: PCP Physician Assistant; Visit Provider Nurse Practitioner Family
DX: R00.2 Palpitations (principal); R06.00 Dyspnea, unspecified; R07.89 Other chest pain; R42 Dizziness and giddiness
CPT/HCPCS: 93017; 93306

== ENCOUNTER 2020-02-23 17:42 | Emergency (ER) | payer OTHER, SELFPAY ==
[2020-02-23 17:43] VITALS: BP 130/86; PULSE 94; RESP 18; TEMP 37; O2SAT 100; BMI 27.0
[2020-02-23 18:10] VITALS: BP 130/86; PULSE 94; RESP 18; TEMP 37; O2SAT 100; BMI 27.0
--- NOTE | 2020-02-23 19:04 | HMH.EDUTC ---
[facility] Disposition Clinical Impression: Laceration of ear Qualifiers: Encounter type: initial encounter Laterality: left Qualified Code(s): S01.312A - Laceration without foreign body of left ear, initial encounter Disposition: Home, Self-Care Condition on Discharge: Good Instructions: How to Care for a Laceration After Repair, Laceration Repair, DI for Laceration Repair -- Simple Additional Instructions: you know how to care for them: 1. Keep wound area dry for the first 24 hours. 2 May clean gently with mild soap and water, after 48 hours to prevent crusting over suture knots. 3. You may shower if your provider gives permission but do not take a bath until the skin is healed.. 4. Never leave a wet dressing or Band-Aid on your stitches as this allows bacteria to reach the area and may cause infection. Band-aids can cause the wound to sweat and not recommended to wear for long periods of time Watch for signs of infection: Increasing redness, tenderness or warmth around the suture site Unusual swelling around the site Appearance of pus around each suture or any red streaks Fever If you develop any of the above signs or symptoms of infection, Follow up with Family Physician immediately 5. Suture removal in _5-7___days 6. Return to [facility] or follow up with family doctor for removal. This can be done by any medical provider during regular hours on Sunday through Sunday, by appointment. Referrals: Leilani Henry PA [Primary Care Provider] - Time of Disposition: 19:05 Medical Decision Making - David Inquiry Pt receiving controlled substance: No David was queried for this patient: No Vital Signs: 02/23/20 17:43 02/23/20 18:10 02/23/20 19:06 Temperature 98.6 F 98.6 F 98.6 F Temperature Source Oral Oral Pulse Rate 94 H Pulse Rate [Left] 94 H 94 H Respiratory Rate 18 18 18 Blood Pressure 130/86 Blood Pressure [Right Arm] 130/86 130/86 Blood Pressure Mean [Right Arm] 100 100 Blood Pressure Source [Right Arm] Automatic Cuff Blood Pressure Position [Right Arm] Sitting 02 Sat by Pulse Oximetry 100 100 Oxygen Delivery Method Room Air Room Air [facility] HPI - General Stated complaint: ao 02/22 @1730 LAC TO LEFT EAR Time Seen by Provider: 02/23/20 19:04 Mode of Arrival: Ambulatory Source of Information: Patient Limitations: No Limitations Description of Symptoms (Recalled from Triage Doc. by RN): PATIENT C/O LACERATION TO BACK OF LEFT EAR. SHE STATES SHE TRIPPED OVER HER CHILD'S BIKE AND CUT IT ON AN UNKNOWN OBJECT IN HER YARD (EITHER GLASS OR METAL). LAST TETANUS WAS IN 2012 HEENT Symptoms (Recalled from RN notes): No Resp Symptoms (Recalled from RN notes): No Skin Symptoms (Recalled from RN notes): Yes MS Symptoms (Recalled from RN notes): No Functional Status (Recalled from RN notes): WNL - History of Present Illness Provider Complaint: Patient states that she was at home and tripped over her oh bike States that she had some metal and glass laying in a pile and when she fell the left ear landed on something and she noticed she was bleeding and had a laceration to back of her ear denies any other injury - Related Data Home Medications Medication Instructions Recorded Confirmed Escitalopram Oxalate 10 mg PO DAILY 02/23/20 02/23/20 Previous Rx's Medication Instructions Recorded ondansetron HCl 4 mg tablet 4 mg PO Q8H PRN #20 tab 01/09/20 Allergies Allergy/AdvReac Type Severity Reaction Status Date / Time No Known Allergies Allergy Verified 02/11/20 15:03 - Worker's Comp Is this a Worker's Comp case?: No [facility] History - Hepatitis A Screen Drug use history?: No High risk sexual behaviors?: No History of sexually transmitted infection?: No Currently employed?: No Childcare worker?: No Do you have indoor plumbing?: Yes Do you have electricity?: Yes Attestation statement:: This patient has been screened for Hepatitis A risk factors. I have reviewed the patient's past
[2020-02-23 19:06] VITALS: BP 130/86; PULSE 94; RESP 18; TEMP 37; O2SAT 100
== END 2020-02-23 19:31 | disposition home or self-care (01) ==
PROVIDERS: Emergency Provider Nurse Practitioner; PCP Physician Assistant
DX: S01.312A Laceration without foreign body of left ear, initial encounter (principal); W01.0XXA Fall on same level from slipping, tripping and stumbling without subsequent striking against object, initial encounter; Y92.017 Garden or yard in single-family (private) house as the place of occurrence of the external cause; J45.909 Unspecified asthma, uncomplicated; G43.709 Chronic migraine without aura, not intractable, without status migrainosus; F17.210 Nicotine dependence, cigarettes, uncomplicated; Z90.49 Acquired absence of other specified parts of digestive tract; Z23 Encounter for immunization
CPT/HCPCS: 12011; 90471; 99201

== ENCOUNTER 2020-03-08 11:29 | Emergency (ER) | payer OTHER, SELFPAY ==
--- NOTE | 2020-03-08 11:29 | ECG_ITS ---
APPROVED REPORT Exam: Resting ECG HR:86 bpm ECG Measurements Heart Rate 86 AXES [place] 134 P 58 QRSd 76 QRS 17 QT 394 T 44 QTc 471 <Conclusion> Normal sinus rhythm with sinus arrhythmia ST abnormality, possible digitalis effect Abnormal ECG Electronically signed by : Luis Antonio Glover, 03/09/2020 11:37:20
[2020-03-08 11:33] VITALS: BP 135/94; PULSE 83; RESP 22; TEMP 36.4; O2SAT 100; BMI 27.0
[2020-03-08 11:36] VITALS: BMI 27.0
[2020-03-08 11:55] LABS: Basophils % 0.5 % (0.1-2.0); Eosinophils # 0.1 K/mm3 (0.0-0.4); Eosinophils % 1.4 % (0.1-12.0); Hematocrit 47.9 % (37.0-47.0); Hemoglobin 16.8 g/dL (12.2-16.2); Lymphocytes # 2.4 K/mm3 (0.7-4.5); Lymphocytes % 35.4 % (10-50); Mean Corpuscular HGB Conc 35.2 g/dL (31.8-35.4); Mean Corpuscular Hemoglobin 31.6 pg (27.0-31.2); Mean Corpuscular Volume 89.9 fl (81-99); Mean Platelet Volume 8.9 fl (7.4-10.4); Monocytes # 0.3 K/mm3 (0.1-1.0); Monocytes % 5.1 % (1.7-9.3); Neutrophils # 3.9 K/mm3 (1.8-7.8); Neutrophils % 57.6 % (37.0-80.0); Platelet Count 207 K/mm3 (142-424); Red Blood Count 5.33 M/mm3 (4.20-5.40); Red Cell Distribution Width 13.3 % (11.5-17.5); White Blood Count 6.7 K/mm3 (4.8-10.8)
[2020-03-08 11:59] VITALS: BP 120/99; PULSE 74; RESP 16; O2SAT 96
[2020-03-08 12:00] LABS: Chloride 105 mmol/L (98-107); Potassium 3.7 mmoL/L (3.5-5.1); Sodium 138 mmol/L (136-145)
[2020-03-08 12:03] LABS: Anion Gap 14.7 mEq/L (5-15); Blood Urea Nitrogen 7 mg/dl (7-17); Calcium 9.2 mg/dl (8.4-10.2); Carbon Dioxide 22 mmol/L (22.0-30.0); Creatinine Clearance Estimated 120 mL/min (50-200); Estimated Glomerular Filt Rate 98 ml/min (>60); GFR (African American) 119 ML/MIN (>60); Glucose 94 mg/dl (74-100)
--- NOTE | 2020-03-08 12:10 | HMH.EDGENADL ---
ED Disposition Clinical Impression: Anxiety Disposition: Home, Self-Care Condition on Discharge: Good Instructions: DI for Panic Disorder Referrals: Leilani Henry PA [Primary Care Provider] - - Critical Care Critical Care Time: No Attestation: On 03/08/20, the high probability of a clinically significant, sudden or life threatening deterioration of the following system(s) required my full and direct attention, intervention and personal management. The time I documented below is in addition to time spent performing reported procedures but includes the following listed in this critical care notation. Medical Decision Making - Medical Records Medical records reviewed: Yes: I reviewed the patient's medical records. - David Inquiry Pt receiving controlled substance: No Vital Signs: 03/08/20 11:33 03/08/20 11:59 Temperature 97.6 F Temperature Source Oral Pulse Rate [Right Radial] 83 74 Respiratory Rate 22 16 Blood Pressure [Right Arm] 135/94 H 120/99 H Blood Pressure Mean [Right Arm] 107 106 Blood Pressure Source [Right Arm] Automatic Cuff Automatic Cuff Blood Pressure Position [Right Arm] Sitting Sitting 02 Sat by Pulse Oximetry 100 96 Oxygen Delivery Method Room Air - Lab Data Lab results reviewed: Yes: I reviewed the patient's lab results. Lab Results 03/08/20 11:40: WBC 6.7, RBC 5.33, Hgb 16.8 H, Hct 47.9 H, MCV 89.9, MCH 31.6 H, MCHC 35.2, RDW 13.3, Plt Count 207, MPV 8.9, Neut % (Auto) 57.6, Lymph % (Auto) 35.4, Gila % (Auto) 5.1, Eos % (Auto) 1.4, Baso % (Auto) 0.5, Neut # (Auto) 3.9, Lymph # (Auto) 2.4, Gila # (Auto) 0.3, Eos # (Auto) 0.1, Baso # (Auto) 0.0 03/08/20 11:40: Sodium 138, Potassium 3.7, Chloride 105 Result diagrams: 03/08/20 11:40 03/08/20 11:40 Orders (Tests/Meds): ED MEDICATIONS Generic Name Dose Route Start Last Admin Trade Name Freq PRN Reason Stop Dose Admin Sodium Chloride 10 ml 03/08/20 11:48 Sodium Chloride 0.9% 10ml Vial IV 04/07/20 11:47 NEEDED PRN to Dilute Lorazepam inj Discontinued Medications Generic Name Dose Route Start Last Admin Trade Name Elda PRN Reason Stop Dose Admin Aspirin 324 mg 03/08/20 11:37 03/08/20 11:58 Aspirin 81mg Chewable Tablet PO 03/08/20 11:38 324 mg ONCE ONE Administration Lorazepam 1 mg 03/08/20 11:48 03/08/20 11:58 Ativan 2mg/Ml Vial IV 03/08/20 11:49 1 mg ONCE ONE Administration ORDERS Category Date Time Status Basic Metabolic Panel Stat Lab 03/08/20 11:40 Results Troponin I Q3H Lab 03/08/20 14:45 Ordered Troponin I Q3H Lab 03/08/20 17:45 Ordered Troponin I Stat Lab 03/08/20 11:40 Results General Adult HPI - General Chief complaint: Chest Pain Stated complaint: chest pain Time Seen by Provider: 03/08/20 12:10 Mode of Arrival: Wheelchair Source of Information: Patient Limitations: No Limitations Description of Symptoms (Recalled from ER Triage Doc. by RN): Pt c/o upper chest pain that is sharp/stabbing in nature. Pt reprots pain is radiating through to her chest. 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 Pt also reports SOA. - History of Present Illness HPI narrative: 29-year-old female presents the emergency department with chest pain shortness of breath and tachycardia. Recently she was just diagnosed with acute anxiety disorder specifically MATTHEW. She was put on Lexapro and Vistaril and also low-dose Xanax. She states she was Afraid to take the Xanax which was prescribed 0.25 mg she said she was taking half a 1 twice a day but not really getting any significant relief. Today she presents with a panic attack. Patient denies any other acute symptoms.Patient denies any recent cough or shortness of breath, patient denies any sore throat or headache, patient denies any loss of taste or smell, patient denies any malaise or fatigue, patient denies any abdominal pain nausea vomiting or diarrhea. - Related Data Home Medications Medicat
[2020-03-08 12:20] LABS: Troponin I < 0.01 ng/ml (0.00-0.034)
[2020-03-08 12:39] VITALS: BP 112/65; PULSE 78; RESP 16; TEMP 36.6; O2SAT 98
== END 2020-03-08 12:41 | disposition home or self-care (01) ==
PROVIDERS: Emergency Provider Family Medicine; PCP Physician Assistant
DX: F41.9 Anxiety disorder, unspecified (principal); J45.909 Unspecified asthma, uncomplicated; G43.709 Chronic migraine without aura, not intractable, without status migrainosus; R00.2 Palpitations
CPT/HCPCS: 80048; 84484; 85025; 93005; 96375; 99283

== ENCOUNTER 2020-03-28 15:29 | Emergency (ER) | payer OTHER, SELFPAY ==
[2020-03-28 15:55] VITALS: BP 119/84; PULSE 76; RESP 14; TEMP 36.8; O2SAT 98; BMI 27.3
--- NOTE | 2020-03-28 16:05 | HMH.EDUTC ---
[facility] Disposition Clinical Impression: Thoracic back pain Qualifiers: Chronicity: acute Back pain laterality: bilateral Qualified Code(s): M54.6 - Pain in thoracic spine Disposition: Home, Self-Care Condition on Discharge: Good Instructions: Thoracic Back Pain Additional Instructions: Go home and rest. It would be best if you rested tomorrow too. No heavy lifting. No twisting. Take the oral medications as directed. The muscle relaxer (robaxin) will make you drowsy, so don't drive or operate heavy machinery after taking it. Follow up with your regular doctor. GO TO THE ER FOR ANY WORSENING SYMPTOMS OR CONCERN, ESPECIALLY BOWEL OR BLADDER ISSUES, SADDLE AREA NUMBNESS, FEVER, ETC Prescriptions: Ibuprofen [Ibuprofen 600mg Tablet] 600 mg PO Q6HP PRN #30 tab PRN Reason: Mild Pain Transmission Status: Received by [id number] Methocarbamol [Robaxin 500mg Tab] 500 mg PO BIDP PRN #30 tab PRN Reason: Muscle Spasm [facility] Status[id number] Referrals: Leilani Henry PA [Primary Care Provider] - Time of Disposition: 16:27 Medical Decision Making - Medical Records Medical records reviewed: No: I reviewed the patient's medical records. - David Inquiry Pt receiving controlled substance: No Vital Signs: 03/28/20 15:55 03/28/20 16:41 Temperature 98.2 F 98.2 F Temperature Source Oral Oral Pulse Rate 76 Pulse Rate [Radial] 76 Respiratory Rate 14 14 Blood Pressure 119/84 Blood Pressure [Right Arm] 119/84 Blood Pressure Mean [Right Arm] 95 Blood Pressure Source Automatic Cuff Blood Pressure Source [Right Arm] Automatic Cuff Blood Pressure Position Sitting Blood Pressure Position [Right Arm] Sitting 02 Sat by Pulse Oximetry 98 Oxygen Delivery Method Room Air Room Air - Lab Data Lab results reviewed: Yes: I reviewed the patient's lab results. [facility] HPI - General Stated complaint: Pain in middle of back when she breathes Time Seen by Provider: 03/28/20 16:05 Mode of Arrival: Ambulatory Source of Information: Patient Limitations: No Limitations Description of Symptoms (Recalled from Triage Doc. by RN): pain in middle of her back that started sunday HEENT Symptoms (Recalled from RN notes): No Resp Symptoms (Recalled from RN notes): No Skin Symptoms (Recalled from RN notes): No MS Symptoms (Recalled from RN notes): Yes Functional Status (Recalled from RN notes): wnl - History of Present Illness Provider Complaint: She c/o upper back pain that is worse when she deep breathes or moves certain ways. She denies any known injury. She states that she does have to lift her 4 year old child a lot, but she does not know of any time that she injured herself. She is currently on prednisone for a sinus infection. - Related Data Home Medications Medication Instructions Recorded Confirmed Escitalopram Oxalate 10 mg PO DAILY 02/23/20 03/19/20 Previous Rx's Medication Instructions Recorded ondansetron HCl 4 mg tablet 4 mg PO Q8H PRN #20 tab 01/09/20 metoprolol succinate 25 mg 25 mg PO DAILY #30 tab 02/25/20 tablet,extended release 24 hr albuterol sulfate 90 mcg/actuation 1 puff INHALATION Q6H #6.7 g 03/05/20 aerosol inhaler alprazolam 0.25 mg tablet 0.25 mg PO BID PRN 14 Days #28 tab 03/05/20 fluticasone propionate 50 1 spray INTRANASAL QDAY #9.9 ml 03/05/20 mcg/actuation nasal spray,suspension buspirone 15 mg tablet 15 mg PO BID PRN #60 tab 03/19/20 prednisone 20 mg tablet 20 mg PO DAILY #10 tab 03/19/20 Ibuprofen [Ibuprofen 600mg 600 mg PO Q6HP PRN #30 tab 03/28/20 Tablet] Methocarbamol [Robaxin 500mg Tab] 500 mg PO BIDP PRN #30 tab 03/28/20 Allergies Allergy/AdvReac Type Severity Reaction Status Date / Time No Known Allergies Allergy Verified 03/19/20 14:52 - Worker's Comp Is this a Worker's Comp case?: No [facility] History - Hepatitis A Screen Drug use history?: No High risk sexual behaviors?: No History
[2020-03-28 16:41] VITALS: BP 119/84; PULSE 76; RESP 14; TEMP 36.8; O2SAT 98
== END 2020-03-28 16:42 | disposition home or self-care (01) ==
PROVIDERS: Emergency Provider Nurse Practitioner Family; PCP Physician Assistant
DX: M54.6 Pain in thoracic spine (principal); J45.909 Unspecified asthma, uncomplicated; G43.709 Chronic migraine without aura, not intractable, without status migrainosus; Z90.49 Acquired absence of other specified parts of digestive tract; F17.210 Nicotine dependence, cigarettes, uncomplicated
CPT/HCPCS: 99201

== ENCOUNTER 2020-04-09 21:05 | Emergency (ER) | payer OTHER, SELFPAY ==
[2020-04-09 21:16] VITALS: BP 130/98; PULSE 110; RESP 16; TEMP 36.8; O2SAT 100; BMI 27.3
[2020-04-09 21:23] LABS: Microscopic, Urine URINE MICROSCOPIC (MICROSCOPIC)
--- NOTE | 2020-04-09 21:29 | CT_ITS ---
PROCEDURE: CT ABDOMEN PELVIS W CON CLINICAL INDICATION: left side pain Left-sided abdominal pain with nausea COMPARISON: CT CT ABDOMEN PELVIS WO CON from 12/15/2019 TECHNIQUE: IV Contrast: 75ML OPTIRAY 350 Oral Contrast None Axial images obtained with sagittal and coronal reformats. All CT scans at the facility use one or more dose reduction, viz: automated exposure control, ma/kV adjustment per patient size (including targeted exams where dose is matched to indication, i.e. head), or iterative reconstruction technique. FINDINGS: LOWER THORAX: No acute finding ABDOMEN & PELVIS: Prior cholecystectomy. Borderline splenomegaly at 13 cm. The liver, adrenal glands pancreas and kidneys have an unremarkable appearance. No renal or ureteral calculi. No hydronephrosis. There are few scattered small peritoneal and retroperitoneal lymph nodes. No adenopathy. The appendix is not clearly delineated. No secondary signs of appendicitis. No intestinal obstruction or free air. No evidence diverticulitis. The uterus is anteverted. No pelvic mass abnormal fluid collection or focal inflammatory change. No acute bony findings. There is a small umbilical hernia which contains fat. IMPRESSION: No acute abdominal or pelvic findings. Borderline splenomegaly Dictated by: Raman Roque MD 04/10/2020 08:03 Raman Roque MD in [place] 04/10/2020 08:03
[2020-04-09 21:30] LABS: Appearance,Urine CLEAR (Clear); Bilirubin,Urine Negative (Negative); Blood, Urine Negative (Negative); Color,Urine YELLOW (Yellow); Glucose,Urine (UA) Negative (Negative); Ketones,Urine Negative (Negative); Leukocyte Esterase,Urine Negative (Negative); Nitrate,Urine Negative (Negative); Protein,Urine Negative (Negative); Specific Gravity, Urine >= 1.030 (1.005-1.030); Urobilinogen,Urine 0.2 EU/dl (0.2)
[2020-04-09 21:40] LABS: Bacteria,Urine Trace /lpf; WBC,Urine Occasional #/hpf (0-3)
[2020-04-09 21:40] LABS: Basophils % 0.3 % (0.1-2.0); Eosinophils # 0.1 K/mm3 (0.0-0.4); Eosinophils % 1.5 % (0.1-12.0); Hematocrit 44.5 % (37.0-47.0); Hemoglobin 15.3 g/dL (12.2-16.2); Lymphocytes % 29.2 % (10-50); Mean Corpuscular HGB Conc 34.3 g/dL (31.8-35.4); Mean Corpuscular Hemoglobin 31.9 pg (27.0-31.2); Mean Corpuscular Volume 92.8 fl (81-99); Mean Platelet Volume 8.8 fl (7.4-10.4); Monocytes # 0.4 K/mm3 (0.1-1.0); Monocytes % 5.6 % (1.7-9.3); Neutrophils # 4.4 K/mm3 (1.8-7.8); Neutrophils % 63.3 % (37.0-80.0); Platelet Count 196 K/mm3 (142-424); Red Cell Distribution Width 13.3 % (11.5-17.5); White Blood Count 6.9 K/mm3 (4.8-10.8)
[2020-04-09 21:49] LABS: Chloride 107 mmol/L (98-107)
[2020-04-09 21:50] LABS: Potassium 3.7 mmoL/L (3.5-5.1); Sodium 139 mmol/L (136-145)
[2020-04-09 21:51] VITALS: BP 113/81; PULSE 84; RESP 18; O2SAT 98
[2020-04-09 21:52] LABS: Amylase 63 U/L (30-110); Blood Urea Nitrogen 7 mg/dl (7-17); Creatinine Clearance Estimated 122 mL/min (50-200); Estimated Glomerular Filt Rate 98 ml/min (>60); GFR (African American) 119 ML/MIN (>60)
[2020-04-09 21:53] LABS: Alanine Aminotransferase 17 U/L (12-78); Albumin/Globulin Ratio 1.4 (1.1-1.8); Alkaline Phosphatase 48 U/L (38-126); Anion Gap 11.7 mEq/L (5-15); Aspartate Amino Transferase 19 U/L (14-36); Bilirubin,Total 0.3 mg/dl (0.2-1.3); Calcium 9.2 mg/dl (8.4-10.2); Carbon Dioxide 24 mmol/L (22.0-30.0); Globulin 2.9 g/dL (1.3-3.2); Glucose 102 mg/dl (74-100); Lipase 60 U/L (23-300); Total Protein,Serum 6.9 g/dl (6.3-8.2)
[2020-04-09 22:15] VITALS: BP 94/63; PULSE 67; RESP 16; O2SAT 96
--- NOTE | 2020-04-09 22:36 | PC.NURSE ---
Patient gone to CT at this time
[2020-04-09 22:57] VITALS: BP 108/78; PULSE 74; RESP 16; O2SAT 100
[2020-04-09 23:00] VITALS: BP 111/76; PULSE 61; RESP 18; O2SAT 100
[2020-04-09 23:06] VITALS: BP 111/72; PULSE 70; RESP 15; TEMP 36.8; O2SAT 100
--- NOTE | 2020-04-09 23:06 | HMH.EDNVD ---
ED Disposition Clinical Impression: Abdominal pain Qualifiers: Abdominal location: epigastric Qualified Code(s): R10.13 - Epigastric pain Disposition: Home, Self-Care Condition on Discharge: Good Instructions: DI for Acute Abdomen Additional Instructions: call pcp for dom farfan Prescriptions: Pantoprazole Sodium [Protonix 40mg tablet] 40 mg PO DAILY #30 tab Transmission Status: Pending to [id number] Referrals: Leilani Henry PA [Primary Care Provider] - - Critical Care Critical Care Time: No Attestation: On 04/09/20, the high probability of a clinically significant, sudden or life threatening deterioration of the following system(s) required my full and direct attention, intervention and personal management. The time I documented below is in addition to time spent performing reported procedures but includes the following listed in this critical care notation. Medical Decision Making - Medical Records Medical records reviewed: Yes: I reviewed the patient's medical records. - David Inquiry Pt receiving controlled substance: No Vital Signs: 04/09/20 21:16 04/09/20 21:51 04/09/20 22:15 Temperature 98.3 F Temperature Source Oral Pulse Rate [Right Brachial] 110 H 84 67 Respiratory Rate 16 18 16 Blood Pressure [Right Arm] 130/98 H 113/81 94/63 L Blood Pressure Mean [Right Arm] 108 91 73 Blood Pressure Source [Right Arm] Automatic Cuff Automatic Cuff Blood Pressure Position [Right Arm] Sitting Sitting 02 Sat by Pulse Oximetry 100 98 96 Oxygen Delivery Method Room Air Room Air Room Air 04/09/20 22:57 04/09/20 23:00 Temperature Temperature Source Pulse Rate [Right Brachial] 74 61 Respiratory Rate 16 18 Blood Pressure [Right Arm] 108/78 L 111/76 Blood Pressure Mean [Right Arm] 88 87 Blood Pressure Source [Right Arm] Automatic Cuff Automatic Cuff Blood Pressure Position [Right Arm] Sitting Sitting 02 Sat by Pulse Oximetry 100 100 Oxygen Delivery Method Room Air Room Air - Lab Data Lab results reviewed: Yes: I reviewed the patient's lab results. Lab Results 04/09/20 21:11: Urine Color Yellow, Urine Appearance Clear, Urine pH 6.0, Ur Specific [place] >= 1.030, Urine Protein Negative, Urine Glucose (UA) Negative, Urine Ketones Negative, Urine Blood Negative, Urine Nitrate Negative, Urine Bilirubin Negative, Urine Urobilinogen 0.2, Ur Leukocyte Esterase Negative, Urine WBC Occasional, Ur Squamous Epith Cells 5-10, Urine Bacteria Trace 04/09/20 21:30: WBC 6.9, RBC 4.80, Hgb 15.3, Hct 44.5, MCV 92.8, MCH 31.9 H, MCHC 34.3, RDW 13.3, Plt Count 196, MPV 8.8, Neut % (Auto) 63.3, Lymph % (Auto) 29.2, [place]att % (Auto) 5.6, Eos % (Auto) 1.5, Baso % (Auto) 0.3, Neut # (Auto) 4.4, Lymph # (Auto) 2.0, [place]att # (Auto) 0.4, Eos # (Auto) 0.1, Baso # (Auto) 0.0 04/09/20 21:30: Sodium 139, Potassium 3.7, Chloride 107, Carbon Dioxide 24, Anion Gap 11.7, BUN 7, Creatinine 0.70, Estimated Creat Clear 122, Estimated GFR 98, Est GFR ( Amer) 119, Glucose 102 H, Calcium 9.2, Total Bilirubin 0.3, AST 19, ALT 17, Alkaline Phosphatase 48, Total Protein 6.9, Albumin 4.0, Globulin 2.9, Albumin/Globulin Ratio 1.4, Amylase 63, Lipase 60 Result diagrams: 04/09/20 21:30 04/09/20 21:30 Orders (Tests/Meds): ED MEDICATIONS Generic Name Dose Route Start Last Admin Trade Name Freq PRN Reason Stop Dose Admin Sodium Chloride 1,000 mls @ 999 mls/hr 04/09/20 21:30 04/09/20 21:43 Sod Chlor 0.9% 1000ml Bag IV 04/09/20 22:30 999 mls/hr .Q1H1M CHARLIE Administration Sodium Chloride 8 ml 04/09/20 21:22 04/09/20 21:40 Sodium Chloride 0.9% 10ml Vial IV 05/09/20 21:21 8 ml NEEDED PRN Administration dilute pepcid Discontinued Medications Generic Name Dose Route Start Last Admin Trade Name Freq PRN Reason Stop Dose Admin Famotidine 20 mg 04/09/20 21:22 04/09/20 21:40 Pepcid 20mg/2ml Vial IV 08/21/20 21:23 20 mg ONCE ONE Administration Ioversol 75 ml 04/09/20 23:06 0
== END 2020-04-09 23:15 | disposition home or self-care (01) ==
PROVIDERS: Emergency Provider Emergency Medicine; PCP Physician Assistant
DX: R10.13 Epigastric pain (principal); R10.12 Left upper quadrant pain; F41.9 Anxiety disorder, unspecified; F17.210 Nicotine dependence, cigarettes, uncomplicated; Z90.49 Acquired absence of other specified parts of digestive tract; Z79.899 Other long term (current) drug therapy
CPT/HCPCS: 74177; 80053; 81001; 82150; 83690; 85025; 96365; 96375; 99284; J2405; Q9967

== ENCOUNTER → 2020-05-18 10:04 | Outpatient (CLI) | payer OTHER, SELFPAY ==
[2020-05-18 10:06] LABS: Campylobacter Not Detected (NotDetected); Clostridium Difficile A/B, PCR Not Detected (NotDetected); Cryptosporidium Not Detected (NotDetected); Enteropathogenic E coli Not Detected (NotDetected); Enterotoxigenic E coli Not Detected (NotDetected); Plesimonas Shigalloides, PCR Not Detected (NotDetected); Salmonella, PCR Not Detected (NotDetected); Shiga-like toxin E coli Not Detected (NotDetected); Shigella Enterovasive E coli Not Detected (NotDetected); Vibrio Cholerae Not Detected (NotDetected); Vibrio, PCR Not Detected (NotDetected); Yersinia Entercolitica, PCR Not Detected (NotDetected)
[2020-05-18 13:04] LABS: Adenovirus F 40/41, stool Not Detected (NotDetected); Astrovirus Not Detected (NotDetected); Cyclospora Cayetanesis Not Detected (NotDetected); Entamoeba histolytica Not Detected (NotDetected); Giardia lamblia Not Detected (NotDetected); Norovirus Not Detected (NotDetected); Rotavirus A Not Detected (NotDetected); Sapovirus Not Detected (NotDetected)
[2020-05-18 13:26] LABS: Enteroaggregative E coli Detected (NotDetected)
== END ==
PROVIDERS: Visit Provider Physician Assistant
DX: R19.7 Diarrhea, unspecified (principal); A04.0 Enteropathogenic Escherichia coli infection
CPT/HCPCS: 87507

== ENCOUNTER 2020-05-19 04:20 | Emergency (ER) | payer OTHER, SELFPAY ==
[2020-05-19 04:21] VITALS: BP 118/94; PULSE 75; RESP 16; TEMP 36.4; O2SAT 100; BMI 26.6
--- NOTE | 2020-05-19 04:25 | ECG_ITS ---
APPROVED REPORT Exam: Resting ECG HR:71 bpm ECG Measurements Heart Rate 71 AXES [place] 134 P 76 QRSd 80 QRS 52 QT 408 T 45 QTc 443 <Conclusion> Normal sinus rhythm with sinus arrhythmia Normal ECG Electronically signed by : Luis Antonio Glover, 05/19/2020 16:37:20
--- NOTE | 2020-05-19 04:36 | XR_ITS ---
PROCEDURE: XR CHEST 2V CLINICAL HISTORY: SOA Shortness of breath COMPARISON: CR Chest from 02/26/2019 CR XR CHEST 2V from 08/01/2019 CR XR CHEST 2V from 01/28/2020 FINDINGS: The cardiomediastinal silhouette and pulmonary vascularity are within normal limits. No lobar consolidation or collapse is evident. There is a small focal area of increased density in the right upper lobe medially. The right 4th and 5th ribs are fused anteriorly and crowded together posteriorly overlying this area of increased density. This may only be related to summation artifact from the ribs. CT may confirm. Otherwise unremarkable. No acute bony abnormalities. IMPRESSION: No acute finding. Partial fusion of the right 4th and 5th ribs with increased density along the medial aspect which may be related to this partial fusion. Follow-up may confirm stability Dictated by: Raman Roque MD 05/19/2020 05:38 Raman Roque MD in [place] 05/19/2020 05:38
[2020-05-19 04:51] LABS: Microscopic, Urine URINE MICROSCOPIC (MICROSCOPIC)
[2020-05-19 04:56] LABS: Blood, Urine Negative (Negative); Color,Urine YELLOW (Yellow); Glucose,Urine (UA) Negative (Negative); Ketones,Urine Negative (Negative); Leukocyte Esterase,Urine Negative (Negative); Nitrate,Urine Negative (Negative); Protein,Urine TRACE (Negative); Specific Gravity, Urine >= 1.030 (1.005-1.030); Urobilinogen,Urine 0.2 EU/dl (0.2)
[2020-05-19 04:57] LABS: Chloride 108 mmol/L (98-107); Potassium 3.3 mmoL/L (3.5-5.1); Sodium 140 mmol/L (136-145)
[2020-05-19 04:59] LABS: Amylase 58 U/L (30-110); Blood Urea Nitrogen 9 mg/dl (7-17)
[2020-05-19 05:00] LABS: Alanine Aminotransferase 30 U/L (12-78); Albumin Level 4.3 g/dl (3.5-5.0); Albumin/Globulin Ratio 1.5 (1.1-1.8); Alkaline Phosphatase 58 U/L (38-126); Anion Gap 12.3 mEq/L (5-15); Aspartate Amino Transferase 28 U/L (14-36); Bilirubin,Total 0.5 mg/dl (0.2-1.3); Calcium 9.2 mg/dl (8.4-10.2); Carbon Dioxide 23 mmol/L (22.0-30.0); Creatinine Clearance Estimated 118 mL/min (50-200); Estimated Glomerular Filt Rate 98 ml/min (>60); GFR (African American) 118 ML/MIN (>60); Globulin 2.9 g/dL (1.3-3.2); Glucose 107 mg/dl (74-100); Lipase 81 U/L (23-300); Total Protein,Serum 7.2 g/dl (6.3-8.2)
[2020-05-19 05:01] LABS: Appearance,Urine Slightly Cloudy (Clear); Bacteria,Urine 1+ /lpf; Bilirubin,Urine Negative (Negative); Mucus,Urine 1+ /lpf; Urine Pregnancy, HCG Qual. Negative (Negative)
[2020-05-19 05:06] LABS: Basophils % 0.8 % (0.1-2.0); Eosinophils % 0.8 % (0.1-12.0); Lymphocytes # 2.4 K/mm3 (0.7-4.5); Lymphocytes % 44.8 % (10-50); Mean Corpuscular HGB Conc 33.3 g/dL (31.8-35.4); Mean Corpuscular Hemoglobin 30.4 pg (27.0-31.2); Mean Corpuscular Volume 91.3 fl (81-99); Mean Platelet Volume 8.9 fl (7.4-10.4); Monocytes # 0.3 K/mm3 (0.1-1.0); Monocytes % 5.9 % (1.7-9.3); Neutrophils # 2.6 K/mm3 (1.8-7.8); Neutrophils % 47.7 % (37.0-80.0); Platelet Count 197 K/mm3 (142-424); Red Blood Count 4.93 M/mm3 (4.20-5.40); Red Cell Distribution Width 13.1 % (11.5-17.5); White Blood Count 5.4 K/mm3 (4.8-10.8)
[2020-05-19 05:24] LABS: Troponin I < 0.01 ng/ml (0.00-0.034)
[2020-05-19 05:26] VITALS: BP 120/85; PULSE 72; RESP 16; O2SAT 97
--- NOTE | 2020-05-19 05:35 | HMH.EDNVD ---
ED Disposition Clinical Impression: Gastroenteritis, Atypical chest pain Disposition: Home, Self-Care Condition on Discharge: Good Instructions: DI for Diarrhea and Traveler's Diarrhea -- Adult Additional Instructions: fluids and see pcp for follow up Referrals: Leilani Henry PA [Primary Care Provider] - - Critical Care Critical Care Time: No Attestation: On 05/19/20, the high probability of a clinically significant, sudden or life threatening deterioration of the following system(s) required my full and direct attention, intervention and personal management. The time I documented below is in addition to time spent performing reported procedures but includes the following listed in this critical care notation. Medical Decision Making - Medical Records Medical records reviewed: Yes: I reviewed the patient's medical records. - David Inquiry Pt receiving controlled substance: No Vital Signs: 05/19/20 04:21 05/19/20 05:26 Temperature 97.5 F L Temperature Source Oral Pulse Rate [Right] 75 72 Respiratory Rate 16 16 Blood Pressure [Left Arm] 118/94 H 120/85 Blood Pressure Mean [Left Arm] 102 96 Blood Pressure Source [Left Arm] Automatic Cuff Automatic Cuff Blood Pressure Position [Left Arm] Sitting Sitting 02 Sat by Pulse Oximetry 100 97 Oxygen Delivery Method Room Air Room Air - Lab Data Lab results reviewed: Yes: I reviewed the patient's lab results. Lab Results 05/19/20 04:30: Urine Color Yellow, Urine Appearance Slightly cloudy, Urine pH 6.0, Ur Specific [place] >= 1.030, Urine Protein Trace, Urine Glucose (UA) Negative, Urine Ketones Negative, Urine Blood Negative, Urine Nitrate Negative, Urine Bilirubin Negative, Urine Urobilinogen 0.2, Ur Leukocyte Esterase Negative, Urine WBC 3-5, Ur Squamous Epith Cells 3-5, Urine Bacteria 1+, Urine Mucus 1+ 05/19/20 04:30: WBC 5.4, RBC 4.93, Hgb 15.0, Hct 45.0, MCV 91.3, MCH 30.4, MCHC 33.3, RDW 13.1, Plt Count 197, MPV 8.9, Neut % (Auto) 47.7, Lymph % (Auto) 44.8, Baker % (Auto) 5.9, Eos % (Auto) 0.8, Baso % (Auto) 0.8, Neut # (Auto) 2.6, Lymph # (Auto) 2.4, Baker # (Auto) 0.3, Eos # (Auto) 0.0, Baso # (Auto) 0.0, ESR 16 05/19/20 04:30: Urine HCG, Qual Negative 05/19/20 04:30: Sodium 140, Potassium 3.3 L, Chloride 108 H, Carbon Dioxide 23, Anion Gap 12.3, BUN 9, Creatinine 0.70, Estimated Creat Clear 118, Estimated GFR 98, Est GFR ( Amer) 118, Glucose 107 H, Calcium 9.2, Total Bilirubin 0.5, AST 28, ALT 30, Alkaline Phosphatase 58, Troponin I < 0.01, C-Reactive Protein 2.0, Total Protein 7.2, Albumin 4.3, Globulin 2.9, Albumin/Globulin Ratio 1.5, Amylase 58, Lipase 81 Result diagrams: 05/19/20 04:30 05/19/20 04:30 Orders (Tests/Meds): ED MEDICATIONS Generic Name Dose Route Start Last Admin Trade Name Freq PRN Reason Stop Dose Admin Sodium Chloride 1,000 mls @ 999 mls/hr 05/19/20 04:45 05/19/20 04:40 Sod Chlor 0.9% 1000ml Bag IV 05/19/20 05:45 999 mls/hr .Q1H1M CHARLIE Administration Sodium Chloride 1,000 mls @ 999 mls/hr 05/19/20 05:30 05/19/20 05:42 Sod Chlor 0.9% 1000ml Bag IV 05/19/20 06:30 999 mls/hr .Q1H1M CHARLIE Administration Discontinued Medications Generic Name Dose Route Start Last Admin Trade Name Freq PRN Reason Stop Dose Admin Ondansetron HCl 4 mg 05/19/20 04:38 05/19/20 04:40 Zofran 4mg/2ml Vial IV 05/19/20 04:39 4 mg ONCE ONE Administration ORDERS Category Date Time Status Troponin I Q3H Lab 05/19/20 07:45 Ordered Troponin I Q3H Lab 05/19/20 10:45 Ordered - ECG Data Tracing #1 Normal Sinus Rhythm: Yes Ischemic changes: non-specific ST-T wave changes - DARÍO Score for Non-Stemi Age of Patient: 30-39 years old Heart Rate: 70-89 bpm Systolic Blood Pressure: 100-119 mmHg Serum Creatinine: 0.40-0.79 mg/dl CHF [place] Class: I-No CHF Other Risk Factors: None Non-Stemi Risk Score: 64 Nausea/Vomiting/Diarrhea HPI - General Chief complaint: Nausea/Vomiting/Diarrhea Sta
[2020-05-19 05:47] LABS: Erythrocyte Sedimentation Rate 16 mm/hr (0-20)
[2020-05-19 06:07] VITALS: BP 107/75; PULSE 74; RESP 16; O2SAT 98
[2020-05-19 06:26] VITALS: BP 116/86; PULSE 73; RESP 16; TEMP 36.6; O2SAT 98
== END 2020-05-19 06:30 | disposition home or self-care (01) ==
PROVIDERS: Emergency Provider Emergency Medicine; PCP Physician Assistant
DX: K52.9 Noninfective gastroenteritis and colitis, unspecified (principal); F41.9 Anxiety disorder, unspecified; J45.909 Unspecified asthma, uncomplicated; G43.709 Chronic migraine without aura, not intractable, without status migrainosus; F17.210 Nicotine dependence, cigarettes, uncomplicated; Z90.49 Acquired absence of other specified parts of digestive tract; Z79.899 Other long term (current) drug therapy
CPT/HCPCS: 71046; 80053; 81001; 81025; 82150; 83690; 84484; 85025; 85651; 86140; 93005; 96365; 96375; 99283; J2405

== ENCOUNTER 2020-06-10 16:30 | Emergency (ER) | payer OTHER, SELFPAY ==
[2020-06-10 16:59] VITALS: BP 120/87; PULSE 78; RESP 18; TEMP 36.7; O2SAT 98; BMI 27.1
--- NOTE | 2020-06-10 17:34 | HMH.EDUTC ---
[facility] [place] Clinical Impression: Bronchitis Sinusitis Qualifiers: Sinusitis location: unspecified location Chronicity: unspecified Qualified Code(s): J32.9 - Chronic sinusitis, unspecified Disposition: Home, Self-Care Condition on Discharge: Good Instructions: Sinusitis, Sinus Headache, Acute Bronchitis, DI for Sinusitis Additional Instructions: ? Start antibiotic today. Be sure to complete entire prescription even if feeling better ? Monitor temp. Tylenol every 4 hours as needed and / or ibuprofen every 6 hours as needed ( As long as your primary care physician has told you that it ok to take both. For fever/aches/pains ER if no less than 101 despite Tylenol or Motrin ? Humidifier/vaporizer or hot steamy shower ? Inhaler every 4-6 hours as needed like we discussed. If unsure how to use it, ask pharmacist to demonstrate how. Should help open airways and improve cough, wheezing, and shortness of breath ? Mucinex during the day for your cough and cough suppressant only at night. Be sure to drink lots of water. Insurance may not cover a prescriptions for mucinex. Might be cheaper to get 400mg tablets and take 2 tablet in the morning, mid-day and evening with lots of water. *Continue taking Prednisone as prescribed and follow up with PCP if no improvement. Follow up IMMEDIATELY for new or worsening of symptoms OR no noticeable improvement over the next 48-72 hours. 911 immediately for any life threatening symptoms such as chest pain or difficulty breathing Prescriptions: Azithromycin [Z-Shay 250mg Tab] 250 mg PO DIRECTED #6 tab Transmission Status: Received by [id number] Referrals: Leilani Henry PA [Primary Care Provider] - Time of Disposition: 17:50 Medical Decision Making - David Inquiry Pt receiving controlled substance: No David was queried for this patient: No Vital Signs: 06/10/20 16:59 06/10/20 18:12 Temperature 98.1 F 98.1 F Temperature Source Oral Oral Pulse Rate 78 Pulse Rate [Radial] 78 Respiratory Rate 18 18 Blood Pressure 120/87 Blood Pressure [Right Arm] 120/87 Blood Pressure Mean [Right Arm] 98 Blood Pressure Source Automatic Cuff Blood Pressure Source [Right Arm] Automatic Cuff Blood Pressure Position Sitting Blood Pressure Position [Right Arm] Sitting 02 Sat by Pulse Oximetry 98 Oxygen Delivery Method Room Air Room Air Medical Decision Narrative: Patient states that she has taken azithromycin before without reactions or complications State that she is still taking prednisone prescribed by PCP that she has been breaking it in pieces and taking it discussed CXR and patient declined at this time [facility] [place] - General Stated complaint: Chest congestion Time Seen by Provider: 06/10/20 17:34 Mode of Arrival: Ambulatory Source of Information: Patient Limitations: No Limitations Description of Symptoms (Recalled from Triage Doc. by RN): CONGESTION, STUFFY NOSE, SOB HEENT Symptoms (Recalled from RN notes): Yes Resp Symptoms (Recalled from RN notes): No Skin Symptoms (Recalled from RN notes): No MS Symptoms (Recalled from RN notes): No Functional Status (Recalled from RN notes): WNL - History of Present Illness Provider Complaint: Patient states that she has been having cough, chest congestion and sinus drianage State that she was recently prescribed steriods by her PCP and thinks she needs antibiotic States that she has asthma and has been using her inhaler and she feels like she is breathing better but still having throat irritation and sinus pressure so she came in - Related Data Home Medications Medication Instructions Recorded Confirmed Venlafaxine HCl [Effexor Xr] 75 mg PO DAILY 04/09/20 06/02/20 Albuterol Sulfate [Proventil Hfa] 2 puff INHALATION Q6H 05/19/20 06/02/20 Pantoprazole Sodium [Protonix 40mg 40 mg PO DAILY 05/19/20 06/02/20 tablet] Previous Rx's Medication Instructions Recorded lorazepam 0.5 mg tablet See Rx Instructions
[2020-06-10 18:12] VITALS: BP 120/87; PULSE 78; RESP 18; TEMP 36.7; O2SAT 98
== END 2020-06-10 18:13 | disposition home or self-care (01) ==
PROVIDERS: Emergency Provider Nurse Practitioner; PCP Physician Assistant
DX: J20.9 Acute bronchitis, unspecified (principal); J32.9 Chronic sinusitis, unspecified; F41.8 Other specified anxiety disorders; F17.210 Nicotine dependence, cigarettes, uncomplicated; Z90.49 Acquired absence of other specified parts of digestive tract
CPT/HCPCS: 99201

== ENCOUNTER 2020-06-11 12:09 | Emergency (ER) | payer OTHER, SELFPAY ==
[2020-06-11 12:10] VITALS: BP 133/93; PULSE 99; RESP 16; TEMP 36.9; O2SAT 98; BMI 26.4
--- NOTE | 2020-06-11 12:26 | XR_ITS ---
PROCEDURE: XR CHEST PORTABLE CLINICAL HISTORY: cough COMPARISON: CR XR CHEST 2V from 08/01/2019 CR XR CHEST 2V from 01/28/2020 CR XR CHEST 2V from 05/19/2020 FINDINGS: The cardiomediastinal silhouette and pulmonary vascularity are within normal limits. The lungs are clear without infiltrates, suspicious nodules, or pleural effusions. No acute bony abnormalities. IMPRESSION: No acute findings. Dictated by: Raman Roque MD 06/11/2020 13:12 Raman Roque MD in [place] 06/11/2020 13:12
--- NOTE | 2020-06-11 12:57 | HMH.EDGENADL ---
ED Disposition Clinical Impression: Anxiety, Bronchitis, Cervical paraspinal muscle spasm URI (upper respiratory infection) Qualifiers: URI type: unspecified viral URI Qualified Code(s): J06.9 - Acute upper respiratory infection, unspecified Disposition: Home, Self-Care Condition on Discharge: Good Instructions: DI for Acute Bronchitis Referrals: Leilani Henry PA [Primary Care Provider] - - Critical Care Critical Care Time: No Attestation: On 06/11/20, the high probability of a clinically significant, sudden or life threatening deterioration of the following system(s) required my full and direct attention, intervention and personal management. The time I documented below is in addition to time spent performing reported procedures but includes the following listed in this critical care notation. Medical Decision Making - Medical Records Medical records reviewed: Yes: I reviewed the patient's medical records. - David Inquiry Pt receiving controlled substance: No Vital Signs: 06/11/20 12:10 Temperature 98.4 F Temperature Source Oral Pulse Rate [Radial] 99 H Respiratory Rate 16 Blood Pressure [Right Arm] 133/93 H Blood Pressure Mean [Right Arm] 106 Blood Pressure Position [Right Arm] Sitting 02 Sat by Pulse Oximetry 98 Oxygen Delivery Method Room Air - Lab Data Lab Results 06/11/20 13:20: WBC 7.3, RBC 5.25, Hgb 16.3 H, Hct 46.8, MCV 89.1, MCH 31.0, MCHC 34.8, RDW 13.3, Plt Count 190, MPV 8.7, Neut % (Auto) 70.7, Lymph % (Auto) 20.4, [place] % (Auto) 6.2, Eos % (Auto) 2.0, Baso % (Auto) 0.7, Neut # (Auto) 5.1, Lymph # (Auto) 1.5, [place] # (Auto) 0.5, Eos # (Auto) 0.1, Baso # (Auto) 0.1 06/11/20 13:20: Troponin I < 0.01 06/11/20 13:20: Sodium 139, Potassium 3.6, Chloride 105, Carbon Dioxide 25, Anion Gap 12.6, BUN 8, Creatinine 0.70, Estimated Creat Clear 117, Estimated GFR 98, Est GFR ( Amer) 118, Glucose 107 H, Calcium 9.2 Result diagrams: 06/11/20 13:20 06/11/20 13:20 Orders (Tests/Meds): ED MEDICATIONS Discontinued Medications Generic Name Dose Route Start Last Admin Trade Name Elda GANDHI Reason Stop Dose Admin Diphenhydramine HCl 25 mg 06/11/20 12:27 06/11/20 13:07 Diphenhydramine 50mg/Ml Vial IV 06/11/20 12:28 25 mg ONCE ONE Administration Sodium Chloride 1,000 mls @ 999 mls/hr 06/11/20 12:30 06/11/20 13:07 Sod Chlor 0.9% 1000ml Bag IV 06/11/20 13:30 999 mls/hr .Q1H1M CHARLIE Administration Ketorolac Tromethamine 30 mg 06/11/20 12:27 06/11/20 13:08 Ketorolac 30mg/Ml Vial IM 06/11/20 12:28 30 mg ONCE ONE Administration Ketorolac Tromethamine 30 mg 06/11/20 13:08 06/11/20 13:09 Ketorolac 30mg/Ml Vial IV 06/11/20 13:09 30 mg ONCE ONE Administration ORDERS Category Date Time Status Troponin I Q3H Lab 06/11/20 15:30 Ordered Troponin I Q3H Lab 06/11/20 18:30 Ordered - Radiology Data #1 Image(s): Chest Image Reviewed: Yes I reviewed the patient's radiology results, Yes I reviewed the patient's radiology image, Yes I have reviewed radiologist's interpretation Preliminary Findings: Normal/NAD - Reevaluation(s) Time: 14:04 Reevaluation #1: Reevaluation, patient is feeling much better. Nasal congestion has improved. Her neck pain is also improved. She is full range of motion. Repeat exam does not show any meningismus. Patient is to follow-up with PCP in 24 hours. Given strict return precautions. Verbalized understanding. Medical Decision Narrative: 30-year-old female presented to the emergency department with URI type symptoms and neck pain. My examination, the patient does not have any meningismus. There is no midline tenderness. I do believe she is likely having discomfort from her nasal congestion. Work-up will be initiated. Patient treated symptomatically. General Adult HPI - General Chief complaint: PAIN Stated complaint: shooting pains in back of neck down back Time Seen by Provider: 06/11/20 1
[2020-06-11 13:23] LABS: Basophils # 0.1 K/mm3 (0-0.2); Basophils % 0.7 % (0.1-2.0); Eosinophils # 0.1 K/mm3 (0.0-0.4); Hematocrit 46.8 % (37.0-47.0); Hemoglobin 16.3 g/dL (12.2-16.2); Lymphocytes # 1.5 K/mm3 (0.7-4.5); Lymphocytes % 20.4 % (10-50); Mean Corpuscular HGB Conc 34.8 g/dL (31.8-35.4); Mean Corpuscular Volume 89.1 fl (81-99); Mean Platelet Volume 8.7 fl (7.4-10.4); Monocytes # 0.5 K/mm3 (0.1-1.0); Monocytes % 6.2 % (1.7-9.3); Neutrophils # 5.1 K/mm3 (1.8-7.8); Neutrophils % 70.7 % (37.0-80.0); Platelet Count 190 K/mm3 (142-424); Red Blood Count 5.25 M/mm3 (4.20-5.40); Red Cell Distribution Width 13.3 % (11.5-17.5); White Blood Count 7.3 K/mm3 (4.8-10.8)
[2020-06-11 13:33] LABS: Anion Gap 12.6 mEq/L (5-15); Blood Urea Nitrogen 8 mg/dl (7-17); Calcium 9.2 mg/dl (8.4-10.2); Carbon Dioxide 25 mmol/L (22.0-30.0); Chloride 105 mmol/L (98-107); Creatinine Clearance Estimated 117 mL/min (50-200); Estimated Glomerular Filt Rate 98 ml/min (>60); GFR (African American) 118 ML/MIN (>60); Glucose 107 mg/dl (74-100); Potassium 3.6 mmoL/L (3.5-5.1); Sodium 139 mmol/L (136-145)
[2020-06-11 13:46] LABS: Troponin I < 0.01 ng/ml (0.00-0.034)
[2020-06-11 14:16] VITALS: BP 124/68; PULSE 88; RESP 16; TEMP 36.6; O2SAT 98
== END 2020-06-11 14:18 | disposition home or self-care (01) ==
PROVIDERS: Emergency Provider Emergency Medicine; PCP Physician Assistant
DX: J20.9 Acute bronchitis, unspecified (principal); M62.838 Other muscle spasm; F41.9 Anxiety disorder, unspecified; G43.709 Chronic migraine without aura, not intractable, without status migrainosus; Z79.899 Other long term (current) drug therapy; F17.210 Nicotine dependence, cigarettes, uncomplicated
CPT/HCPCS: 71045; 80048; 84484; 85025; 96365; 96375; 99282

== ENCOUNTER → 2020-06-18 08:14 | Outpatient (CLI) | payer OTHER, SELFPAY ==
--- NOTE | 2020-06-18 08:16 | CT_ITS ---
PROCEDURE: CT HEAD/BRAIN WO CON CLINICAL INDICATION: headache,dizzy with vision changes COMPARISON: CT HEADWO CT head/brain wo con from 02/19/2019 TECHNIQUE: Axial images obtained. All CT scans at the facility use one or more dose reduction, viz: automated exposure control, ma/kV adjustment per patient size (including targeted exams where dose is matched to indication, i.e. head), or iterative reconstruction technique. FINDINGS: No midline shift, mass effect, intracranial hemorrhage, hydrocephalus, or extra-axial fluid collection is evident. There is hyperdensity of the basilar artery. This however had a similar appearance on the previous exam. The calvarium has an unremarkable appearance. No mastoid effusion. No sinus air-fluid level. IMPRESSION: 1. No change with no acute finding. 2. Nonspecific hyperdensity of the basilar artery overall not significantly changed. CT angiogram may better evaluate if clinically desired. Dictated by: Raman Roque MD 06/18/2020 09:23 Raman Roque MD in [place] 06/18/2020 09:23
== END ==
PROVIDERS: PCP Physician Assistant; Visit Provider Nurse Practitioner Family
DX: R51.9 Headache, unspecified (principal)
CPT/HCPCS: 70450

== ENCOUNTER → 2020-08-09 16:26 | Outpatient (CLI) | payer OTHER, SELFPAY ==
--- NOTE | 2020-08-09 16:26 | MR_ITS ---
PROCEDURE: MR HEAD/BRAIN WO CON CLINICAL INDICATION: new onset headaches constant headache. lt sided neck and shoulder pain. pain [id number]. no injury. prior ct 06-18-20 COMPARISON: CT CT HEAD/BRAIN WO CON from 06/18/2020 TECHNIQUE: Routine multiplanar multi echo sequences are performed without gadolinium enhancement. FINDINGS: No midline shift, mass effect, intracranial hemorrhage, or hydrocephalus. No evidence of acute infarction. The cerebellopontine angles, cerebellum, brainstem and mid brain have an unremarkable appearance. There is a partial empty sella as a normal variant. The optic chiasm, corpus callosum, and craniocervical junction have an unremarkable appearance. Unremarkable white matter signal intensity. No mastoid effusion or sinus air-fluid level IMPRESSION: Negative MRI of the brain without contrast, no acute finding Dictated by: Raman Roque MD 08/10/2020 10:35 Raman Roque MD in [place] 08/10/2020 10:35
--- NOTE | 2020-08-09 17:15 | XR_ITS ---
PROCEDURE: XR CERVICAL SPINE W FLEX/EXT CLINICAL INDICATION: neck pain COMPARISON: No exams were available for comparison FINDINGS: Normal alignment. No fracture or dislocation. No lytic or blastic change. The neural foramina are well preserved. Flexion and extension views are obtained showing no abnormal subluxation in flexion or extension. No prevertebral soft tissue swelling. No cervical rib. IMPRESSION: Negative cervical spine with flexion and extension Dictated by: Raman Roque MD 08/09/2020 22:29 Raman Roque MD in [facility] 08/09/2020 22:29
== END ==
PROVIDERS: PCP Physician Assistant; Visit Provider Specialist
DX: R51.9 Headache, unspecified (principal); M54.2 Cervicalgia
CPT/HCPCS: 70551; 72052

== ENCOUNTER → 2020-09-21 18:13 | Outpatient (CLI) | payer OTHER, SELFPAY ==
[2020-09-21 18:32] LABS: Basophils # 0.1 K/mm3 (0-0.2); Basophils % 1.2 % (0.1-2.0); Eosinophils % 0.7 % (0.1-12.0); Hematocrit 48.7 % (37.0-47.0); Hemoglobin 15.9 g/dL (12.2-16.2); Lymphocytes # 1.9 K/mm3 (0.7-4.5); Mean Corpuscular HGB Conc 32.7 g/dL (31.8-35.4); Mean Corpuscular Hemoglobin 30.5 pg (27.0-31.2); Mean Corpuscular Volume 93.5 fl (81-99); Mean Platelet Volume 9.6 fl (7.4-10.4); Monocytes # 0.3 K/mm3 (0.1-1.0); Neutrophils # 3.9 K/mm3 (1.8-7.8); Platelet Count 218 K/mm3 (142-424); Red Blood Count 5.21 M/mm3 (4.20-5.40); Red Cell Distribution Width 13.8 % (11.5-17.5); White Blood Count 6.2 K/mm3 (4.8-10.8)
[2020-09-21 18:56] LABS: Alanine Aminotransferase 13 U/L (12-78); Albumin Level 4.4 g/dl (3.5-5.0); Albumin/Globulin Ratio 1.6 (1.1-1.8); Alkaline Phosphatase 57 U/L (38-126); Anion Gap 8.8 mEq/L (5-15); Aspartate Amino Transferase 21 U/L (14-36); Bilirubin,Total 0.5 mg/dl (0.2-1.3); Blood Urea Nitrogen 8 mg/dl (7-17); Calcium 9.6 mg/dl (8.4-10.2); Carbon Dioxide 25 mmol/L (22.0-30.0); Chloride 109 mmol/L (98-107); Chol/HDL Ratio 3.3 (1-3.5); Cholesterol 153 mg/dl (140-200); Estimated Glomerular Filt Rate 98 ml/min (>60); GFR (African American) 118 ML/MIN (>60); Globulin 2.7 g/dL (1.3-3.2); Glucose 104 mg/dl (74-100); HDL Cholesterol 47 mg/dl (40-60); Potassium 3.8 mmoL/L (3.5-5.1); Sodium 139 mmol/L (136-145); Total Protein,Serum 7.1 g/dl (6.3-8.2); Triglycerides 100 mg/dl (30-150); VLDL Cholesterol 20 mg/dL (0-40)
[2020-09-21 19:07] LABS: Direct LDL Cholesterol 83.23 mg/dL (100-129)
[2020-09-21 19:13] LABS: Free T4 (Free Thyroxine) 1.16 ng/dl (0.78-2.19)
[2020-09-21 19:14] LABS: 25-OH Vitamin D, Total 24.5 ng/mL (30-100)
[2020-09-21 19:27] LABS: Thyroid Stimulating Hormone 1.07 uIU/mL (0.465-4.68)
== END ==
PROVIDERS: Visit Provider Physician Assistant
DX: R42 Dizziness and giddiness (principal); R29.898 Other symptoms and signs involving the musculoskeletal system; R59.1 Generalized enlarged lymph nodes; E55.9 Vitamin D deficiency, unspecified
CPT/HCPCS: 80053; 80061; 82306; 84439; 84443; 85025

== ENCOUNTER 2020-12-27 04:29 | Emergency (ER) | payer OTHER, SELFPAY ==
[2020-12-27 04:31] VITALS: BP 120/89; PULSE 77; RESP 16; TEMP 36.4; O2SAT 100; BMI 27.3
--- NOTE | 2020-12-27 04:45 | ECG_ITS ---
APPROVED REPORT Exam: Resting ECG HR:64 bpm ECG Measurements Heart Rate 64 AXES CO 138 P 61 QRSd 78 QRS 31 QT 426 T 42 QTc 439 Conclusion Normal sinus rhythm with sinus arrhythmia Normal ECG Electronically signed by : Matt Luevano, 12/27/2020 18:13:24
[2020-12-27 04:46] VITALS: BMI 27.3
--- NOTE | 2020-12-27 04:54 | CT_ITS ---
PROCEDURE INFORMATION: Exam: CT Abdomen And Pelvis With Contrast Exam date and time: 12/27/2020 4:54 AM Age: 30 years old Clinical indication: Nausea and vomiting; Abdominal pain; Localized; Prior surgery; Surgery date: 6+ months; Surgery type: Gallbladder; Patient HX: N/v with lower abd pain; Additional info: Nausea and vomiting with llq pain TECHNIQUE: Imaging protocol: Computed tomography of the abdomen and pelvis with contrast. Radiation optimization: All CT scans at this facility use at least one of these dose optimization techniques: automated exposure control; mA and/or kV adjustment per patient size (includes targeted exams where dose is matched to clinical indication); or iterative reconstruction. Contrast material: ISOVUE; Contrast volume: 75 ml; Contrast route: IV; COMPARISON: CT ABDOMEN PELVIS W CON 04/09/2020 10:41 PM FINDINGS: Lungs: The lung bases are grossly clear. Heart: Cardiac chambers appear normal. Liver: Mild hepatic steatosis. Gallbladder and bile ducts: Status post cholecystectomy. Pancreas: No peripancreatic inflammatory infiltration or fluid. No ductal dilation. Spleen: No splenomegaly or splenic mass. Adrenal glands: Normal. No mass. Kidneys and ureters: No nephrolithiasis, ureterolithiasis or hydronephrosis. Stomach and bowel: There is mild scattered diverticulosis but no diverticulitis. There is no small bowel obstruction or ileus. Appendix: No evidence of appendicitis. No appendicolith. Intraperitoneal space: No free fluid, free air or focal inflammatory infiltration. Vasculature: No abdominal aortic aneurysm. The portal, splenic and superior mesenteric veins appear patent. Lymph nodes: No enlarged lymph nodes within the retroperitoneal space or mesentery. Urinary bladder: Unremarkable as visualized. Reproductive: Unremarkable as visualized. Bones/joints: Unremarkable. No acute fracture. No osteolytic or blastic bone lesions. Soft tissues: Paraspinous and extracorporeal soft tissues are unremarkable. IMPRESSION: 1. Mild scattered diverticulosis but no evidence of diverticulitis. 2. Mild hepatic steatosis. 3. Status post cholecystectomy.
[2020-12-27 04:58] LABS: Microscopic, Urine URINE MICROSCOPIC (MICROSCOPIC)
--- NOTE | 2020-12-27 04:59 | XR_ITS ---
PROCEDURE INFORMATION: Exam: XR Chest Exam date and time: 12/27/2020 4:59 AM Age: 30 years old Clinical indication: Shortness of breath; Patient HX: SOA, smoker TECHNIQUE: Imaging protocol: XR of the chest. Views: 2 views. COMPARISON: CR XR CHEST PORTABLE 06/11/2020 12:38 PM FINDINGS: Lungs: The lungs are clear without consolidation. Pleural spaces: Unremarkable. No pleural effusion. No pneumothorax. Heart/Mediastinum: The cardiac silhouette, mediastinal contours and hilar shadows appear unremarkable. Bones/joints: Osseous structures grossly intact. IMPRESSION: No acute cardiopulmonary disease.
[2020-12-27 05:00] LABS: Appearance,Urine CLEAR (Clear); Bilirubin,Urine Negative (Negative); Blood, Urine 1+ (Negative); Color,Urine YELLOW (Yellow); Glucose,Urine (UA) Negative (Negative); Ketones,Urine Negative (Negative); Leukocyte Esterase,Urine Negative (Negative); Nitrate,Urine Negative (Negative); Protein,Urine Negative (Negative); Specific Gravity, Urine >= 1.030 (1.005-1.030)
[2020-12-27 05:01] LABS: Urine Pregnancy, HCG Qual. Negative (Negative)
[2020-12-27 05:06] LABS: Bacteria,Urine Trace /lpf; RBC,Urine Occasional #/hpf (0-3); Squamous Epithelial Cell,Urine 20-50 #/hpf (0-5); WBC,Urine Occasional #/hpf (0-3)
[2020-12-27 05:07] VITALS: BP 110/81
[2020-12-27 05:09] LABS: Barbiturates Screen,Urine Negative ng/ml (<200)
[2020-12-27 05:10] LABS: Benzodiazepines Screen,Urine Negative ng/ml (<200)
--- NOTE | 2020-12-27 05:10 | PC.NURSE ---
Pt refused toradol and sayda stated she didn't really need it right now and she can deal with the nausea and vomiting. She states toradol hurt my stomach last time I had it. .
[2020-12-27 05:11] LABS: Amphetamine/Metha Screen,Urine Negative ng/ml (<1000); Cannabinoid Screen,Urine Negative ng/ml (<50)
[2020-12-27 05:12] LABS: Cocaine Screen,Urine Negative ng/ml (<300)
[2020-12-27 05:13] LABS: Methadone Screen,Urine Negative ng/ml (<300); Opiate Screen,Urine Negative ng/ml (<300)
[2020-12-27 05:13] LABS: Basophils # 0.1 K/mm3 (0-0.2); Basophils % 0.9 % (0.1-2.0); Eosinophils # 0.1 K/mm3 (0.0-0.4); Eosinophils % 1.4 % (0.1-12.0); Hematocrit 45.1 % (37.0-47.0); Hemoglobin 15.3 g/dL (12.2-16.2); Lymphocytes # 2.2 K/mm3 (0.7-4.5); Lymphocytes % 38.4 % (10-50); Mean Corpuscular Hemoglobin 30.8 pg (27.0-31.2); Mean Corpuscular Volume 90.4 fl (81-99); Mean Platelet Volume 8.5 fl (7.4-10.4); Monocytes # 0.3 K/mm3 (0.1-1.0); Monocytes % 5.8 % (1.7-9.3); Neutrophils % 53.4 % (37.0-80.0); Platelet Count 200 K/mm3 (142-424); Red Blood Count 4.99 M/mm3 (4.20-5.40); Red Cell Distribution Width 12.6 % (11.5-17.5); White Blood Count 5.6 K/mm3 (4.8-10.8)
[2020-12-27 05:14] LABS: Phencyclidine Screen,Urine Negative ng/ml (<25)
--- NOTE | 2020-12-27 05:18 | PC.NURSE ---
When this RN asked if pt had taken her effexor as directed the pt stated she has not had it in a week because she hates it .
[2020-12-27 05:20] LABS: Alanine Aminotransferase 15 U/L (12-78); Albumin Level 4.2 g/dl (3.5-5.0); Albumin/Globulin Ratio 1.6 (1.1-1.8); Alkaline Phosphatase 64 U/L (38-126); Amylase 57 U/L (30-110); Anion Gap 9.6 mEq/L (5-15); Aspartate Amino Transferase 20 U/L (14-36); Bilirubin,Total 0.4 mg/dl (0.2-1.3); Blood Urea Nitrogen 10 mg/dl (7-17); Calcium 8.9 mg/dl (8.4-10.2); Carbon Dioxide 26 mmol/L (22.0-30.0); Chloride 106 mmol/L (98-107); Creatinine Clearance Estimated 106 mL/min (50-200); Estimated Glomerular Filt Rate 84 ml/min (>60); GFR (African American) 101 ML/MIN (>60); Globulin 2.7 g/dL (1.3-3.2); Glucose 106 mg/dl (74-100); Lipase 79 U/L (23-300); Potassium 3.6 mmoL/L (3.5-5.1); Sodium 138 mmol/L (136-145); Total Protein,Serum 6.9 g/dl (6.3-8.2)
[2020-12-27 05:30] VITALS: BP 119/83; PULSE 68; O2SAT 97
--- NOTE | 2020-12-27 05:37 | PC.NURSE ---
Pt refused benadryl d/t having to take her kid to school at 7:30
[2020-12-27 05:50] LABS: C-Reactive Protein 3.8 mg/L (0-4); Procalcitonin 0.035 ng/mL (0.0-2.0)
[2020-12-27 05:52] LABS: Erythrocyte Sedimentation Rate 8 mm/hr (0-20)
--- NOTE | 2020-12-27 06:00 | HMH.EDNVD ---
ED Disposition Clinical Impression: Abdominal pain Qualifiers: Abdominal location: generalized Qualified Code(s): R10.84 - Generalized abdominal pain Adverse effects of medication Qualifiers: Encounter type: initial encounter Qualified Code(s): T50.905A - Adverse effect of unspecified drugs, medicaments and biological substances, initial encounter Disposition: Home, Self-Care Condition on Discharge: Good Instructions: DI for Acute Abdominal Pain Additional Instructions: call pcp for follow up Referrals: Leilani Henry PA [Primary Care Provider] - - Critical Care Critical Care Time: No Attestation: On 12/27/20, the high probability of a clinically significant, sudden or life threatening deterioration of the following system(s) required my full and direct attention, intervention and personal management. The time I documented below is in addition to time spent performing reported procedures but includes the following listed in this critical care notation. Medical Decision Making - Medical Records Medical records reviewed: Yes: I reviewed the patient's medical records. - David Inquiry Pt receiving controlled substance: No Vital Signs: 12/27/20 04:31 12/27/20 05:07 12/27/20 05:30 Temperature 97.6 F Temperature Source Oral Pulse Rate 68 Pulse Rate [Left Radial] 77 Respiratory Rate 16 Blood Pressure 110/81 119/83 Blood Pressure [Right Arm] 120/89 Blood Pressure Mean 92 Blood Pressure Mean [Right Arm] 99 Blood Pressure Source [Right Arm] Automatic Cuff Blood Pressure Position [Right Arm] Sitting 02 Sat by Pulse Oximetry 100 97 Oxygen Delivery Method Room Air - Lab Data Lab results reviewed: Yes: I reviewed the patient's lab results. Lab Results 12/27/20 04:45: Urine Color Yellow, Urine Appearance Clear, Urine pH 6.0, Ur Specific [place] >= 1.030, Urine Protein Negative, Urine Glucose (UA) Negative, Urine Ketones Negative, Urine Blood 1+, Urine Nitrate Negative, Urine Bilirubin Negative, Urine Urobilinogen 1.0, Ur Leukocyte Esterase Negative, Urine RBC Occasional, Urine WBC Occasional, Ur Squamous Epith Cells 20-50, Urine Bacteria Trace 12/27/20 04:45: Urine HCG, Qual Negative 12/27/20 04:45: Urine Opiates Screen Negative, Urine Methadone Screen Negative, Ur Barbituates Screen Negative, Ur Phencyclidine Scrn Negative, Ur Amphetamines Screen Negative, U Benzodiazepines Scrn Negative, Urine Cocaine Screen Negative, U Marijuana (THC) Screen Negative 12/27/20 04:55: WBC 5.6, RBC 4.99, Hgb 15.3, Hct 45.1, MCV 90.4, MCH 30.8, MCHC 34.0, RDW 12.6, Plt Count 200, MPV 8.5, Neut % (Auto) 53.4, Lymph % (Auto) 38.4, [place] % (Auto) 5.8, Eos % (Auto) 1.4, Baso % (Auto) 0.9, Neut # (Auto) 3.0, Lymph # (Auto) 2.2, [place] # (Auto) 0.3, Eos # (Auto) 0.1, Baso # (Auto) 0.1 12/27/20 04:55: Sodium 138, Potassium 3.6, Chloride 106, Carbon Dioxide 26, Anion Gap 9.6, BUN 10, Creatinine 0.80, Estimated Creat Clear 106, Estimated GFR 84, Est GFR ( Amer) 101, Glucose 106 H, Calcium 8.9, Total Bilirubin 0.4, AST 20, ALT 15, Alkaline Phosphatase 64, C-Reactive Protein 3.8, Total Protein 6.9, Albumin 4.2, Globulin 2.7, Albumin/Globulin Ratio 1.6, Amylase 57, Lipase 79, Procalcitonin 0.035 12/27/20 04:55: ESR 8 Result diagrams: 12/27/20 04:55 12/27/20 04:55 Orders (Tests/Meds): ED MEDICATIONS Generic Name Dose Route Start Last Admin Trade Name Freq PRN Reason Stop Dose Admin Sodium Chloride 1,000 mls @ 999 mls/hr 12/27/20 05:00 12/27/20 04:57 Sod Chlor 0.9% 1000ml Bag IV 12/27/20 06:00 999 mls/hr .Q1H1M CHARLIE Administration Discontinued Medications Generic Name Dose Route Start Last Admin Trade Name Freq PRN Reason Stop Dose Admin Diphenhydramine HCl 25 mg 12/27/20 05:33 12/27/20 05:36 Diphenhydramine 50mg/Ml Vial IV 12/27/20 05:34 Not Given ONCE ONE Iopamidol 75 ml 12/27/20 05:34 12/27/20 05:35 Iopamidol-370 (76%);100ml Bottle IV 12/27/20 05:35 75 ml
[2020-12-27 06:11] VITALS: BP 116/83; PULSE 75; RESP 16; TEMP 36.6; O2SAT 100
== END 2020-12-27 06:30 | disposition home or self-care (01) ==
PROVIDERS: Emergency Provider Emergency Medicine; PCP Physician Assistant
DX: R10.84 Generalized abdominal pain (principal); T43.215A Adverse effect of selective serotonin and norepinephrine reuptake inhibitors, initial encounter; R11.2 Nausea with vomiting, unspecified; K21.9 Gastro-esophageal reflux disease without esophagitis; F41.9 Anxiety disorder, unspecified; Z87.442 Personal history of urinary calculi; F17.210 Nicotine dependence, cigarettes, uncomplicated
CPT/HCPCS: 71046; 74177; 80053; 80305; 81001; 81025; 82150; 83690; 84145; 85025; 85651; 86140; 93005; 96365; 96375; 99283; J2405; Q9967

== ENCOUNTER 2021-08-23 21:49 | Emergency (ER) | payer OTHER, SELFPAY ==
[2021-08-23 21:50] VITALS: BP 152/88; PULSE 82; RESP 14; TEMP 37.1; O2SAT 99; BMI 27.3
[2021-08-23 22:30] VITALS: BP 121/91; PULSE 78; O2SAT 97
[2021-08-23 22:38] LABS: Microscopic, Urine URINE MICROSCOPIC (MICROSCOPIC)
[2021-08-23 22:42] LABS: Appearance,Urine CLEAR (Clear); Bilirubin,Urine Negative (Negative); Blood, Urine Negative (Negative); Color,Urine STRAW (Yellow); Glucose,Urine (UA) Negative (Negative); Ketones,Urine Negative (Negative); Leukocyte Esterase,Urine Negative (Negative); Nitrate,Urine Negative (Negative); Protein,Urine Negative (Negative); Urobilinogen,Urine 0.2 EU/dl (0.2)
[2021-08-23 22:45] LABS: Urine Pregnancy, HCG Qual. Negative (Negative)
--- NOTE | 2021-08-23 22:46 | HMH.EDDIZZ ---
ED Disposition Clinical Impression: Dizziness Disposition: Home, Self-Care Condition on Discharge: Good Instructions: Dizziness, Nonvertigo Additional Instructions: see pcp for follow up Referrals: Leilani Henry PA [Primary Care Provider] - - Critical Care Critical Care Time: No Attestation: On 08/23/21, the high probability of a clinically significant, sudden or life threatening deterioration of the following system(s) required my full and direct attention, intervention and personal management. The time I documented below is in addition to time spent performing reported procedures but includes the following listed in this critical care notation. Medical Decision Making - Medical Records Medical records reviewed: Yes: I reviewed the patient's medical records. - David Inquiry Pt receiving controlled substance: No Vital Signs: 08/23/21 21:50 08/23/21 22:30 08/23/21 23:00 Temperature 98.7 F Temperature Source Oral Pulse Rate 78 72 Pulse Rate [Right Radial] 82 Respiratory Rate 14 Blood Pressure 121/91 H 131/96 H Blood Pressure [Right Arm] 152/88 H Blood Pressure Mean [Right Arm] 109 Blood Pressure Source [Right Arm] Automatic Cuff Blood Pressure Position [Right Arm] Sitting 02 Sat by Pulse Oximetry 99 97 98 Oxygen Delivery Method Room Air Room Air Room Air - Lab Data Lab results reviewed: Yes: I reviewed the patient's lab results. Lab Results 08/23/21 22:07: Urine Color Straw, Urine Appearance Clear, Urine pH 7.0, Ur Specific [place] 1.010, Urine Protein Negative, Urine Glucose (UA) Negative, Urine Ketones Negative, Urine Blood Negative, Urine Nitrate Negative, Urine Bilirubin Negative, Urine Urobilinogen 0.2, Ur Leukocyte Esterase Negative, Urine RBC None, Urine WBC Occasional, Ur Squamous Epith Cells 3-5, Urine Bacteria Trace 08/23/21 22:07: WBC 6.1, RBC 5.19, Hgb 16.2, Hct 49.7 H, MCV 95.7, MCH 31.3 H, MCHC 32.7, RDW 12.9, Plt Count 204, MPV 9.5, Neut % (Auto) 58.7, Lymph % (Auto) 31.8, [place] % (Auto) 5.3, Eos % (Auto) 1.2, Baso % (Auto) 2.9 H, Neut # (Auto) 3.6, Lymph # (Auto) 2.0, [place] # (Auto) 0.3, Eos # (Auto) 0.1, Baso # (Auto) 0.2 08/23/21 22:07: Urine HCG, Qual Negative 08/23/21 22:07: Sodium 139, Potassium 4.0, Chloride 106, Carbon Dioxide 24, Anion Gap 13.0, BUN 10, Creatinine 0.70, Estimated Creat Clear 120, Estimated GFR 97, Est GFR ( Amer) 117, Glucose 95, Calcium 9.4, Total Bilirubin 0.4, AST 25, ALT 16, Alkaline Phosphatase 58, Total Protein 7.3, Albumin 4.5, Globulin 2.8, Albumin/Globulin Ratio 1.6 08/23/21 22:07: Urine Opiates Screen Negative, Urine Methadone Screen Negative, Ur Barbituates Screen Negative, Ur Phencyclidine Scrn Negative, Ur Amphetamines Screen Negative, U Benzodiazepines Scrn Negative, Urine Cocaine Screen Negative, U Marijuana (THC) Screen Negative Result diagrams: 08/23/21 22:07 08/23/21 22:07 Orders (Tests/Meds): ED MEDICATIONS Generic Name Dose Route Start Last Admin Trade Name Freq PRN Reason Stop Dose Admin Sodium Chloride 1,000 mls @ 999 mls/hr 08/23/21 22:45 08/23/21 22:59 Sod Chlor 0.9% 1000ml Bag IV 08/23/21 23:45 999 mls/hr .Q1H1M CHARLIE Administration Medical Decision Narrative: stable exam and labs and at baseline at this time Dizzy HPI - General Chief Complaint: Dizziness Stated Complaint: dizzy 45 mins Time Seen by Provider: 08/23/21 22:30 Mode of Arrival: Ambulatory Source of Information: Patient, Medical Record Limitations: No Limitations Description of Symptoms (Recalled from ER Triage Doc. by RN): Pt reports aprox an hour ago she had an episode of dizziness. She says she has bad anxiety and has had moments of dizziness before but this one rocked her world around . She denies N/V.. Pt says she is not currently dizzy but she has tingling to BUE. She states she is worried that her symptoms will cause her anxiety to flare up . - History of Present Illness HPI Narrative: episode of dizzyn
[2021-08-23 22:53] LABS: Barbiturates Screen,Urine Negative ng/ml (<200)
[2021-08-23 22:54] LABS: Amphetamine/Metha Screen,Urine Negative ng/ml (<1000); Benzodiazepines Screen,Urine Negative ng/ml (<200)
[2021-08-23 22:55] LABS: Cannabinoid Screen,Urine Negative ng/ml (<50); Methadone Screen,Urine Negative ng/ml (<300)
[2021-08-23 22:57] LABS: Phencyclidine Screen,Urine Negative ng/ml (<25)
[2021-08-23 23:00] VITALS: BP 131/96; PULSE 72; O2SAT 98
[2021-08-23 23:00] LABS: Opiate Screen,Urine Negative ng/ml (<300)
[2021-08-23 23:04] LABS: Bacteria,Urine Trace /lpf; WBC,Urine Occasional #/hpf (0-3)
[2021-08-23 23:08] LABS: Cocaine Screen,Urine Negative ng/ml (<300)
[2021-08-23 23:21] LABS: Basophils # 0.2 K/mm3 (0-0.2); Basophils % 2.9 % (0.1-2.0); Eosinophils # 0.1 K/mm3 (0.0-0.4); Eosinophils % 1.2 % (0.1-12.0); Hematocrit 49.7 % (37.0-47.0); Hemoglobin 16.2 g/dL (12.2-16.2); Lymphocytes % 31.8 % (10-50); Mean Corpuscular HGB Conc 32.7 g/dL (31.8-35.4); Mean Corpuscular Hemoglobin 31.3 pg (27.0-31.2); Mean Corpuscular Volume 95.7 fl (81-99); Mean Platelet Volume 9.5 fl (7.4-10.4); Monocytes # 0.3 K/mm3 (0.1-1.0); Monocytes % 5.3 % (1.7-9.3); Neutrophils # 3.6 K/mm3 (1.8-7.8); Neutrophils % 58.7 % (37.0-80.0); Platelet Count 204 K/mm3 (142-424); Red Blood Count 5.19 M/mm3 (4.20-5.40); Red Cell Distribution Width 12.9 % (11.5-17.5); White Blood Count 6.1 K/mm3 (4.8-10.8)
[2021-08-23 23:29] LABS: Chloride 106 mmol/L (98-107)
[2021-08-23 23:30] LABS: Sodium 139 mmol/L (136-145)
[2021-08-23 23:32] LABS: Alanine Aminotransferase 16 U/L (12-78); Alkaline Phosphatase 58 U/L (38-126); Aspartate Amino Transferase 25 U/L (14-36); Bilirubin,Total 0.4 mg/dl (0.2-1.3); Blood Urea Nitrogen 10 mg/dl (7-17); Creatinine Clearance Estimated 120 mL/min (50-200); Estimated Glomerular Filt Rate 97 ml/min (>60); GFR (African American) 117 ML/MIN (>60)
[2021-08-23 23:33] LABS: Albumin Level 4.5 g/dl (3.5-5.0); Albumin/Globulin Ratio 1.6 (1.1-1.8); Calcium 9.4 mg/dl (8.4-10.2); Carbon Dioxide 24 mmol/L (22.0-30.0); Globulin 2.8 g/dL (1.3-3.2); Glucose 95 mg/dl (74-100); Total Protein,Serum 7.3 g/dl (6.3-8.2)
[2021-08-24 00:19] VITALS: BP 128/81; PULSE 67; RESP 16; TEMP 36.6; O2SAT 98
== END 2021-08-24 00:27 | disposition home or self-care (01) ==
PROVIDERS: Emergency Provider Emergency Medicine; PCP Physician Assistant
DX: R42 Dizziness and giddiness (principal); F41.9 Anxiety disorder, unspecified; K21.9 Gastro-esophageal reflux disease without esophagitis; Z87.442 Personal history of urinary calculi; F17.210 Nicotine dependence, cigarettes, uncomplicated
CPT/HCPCS: 80053; 80305; 81001; 81025; 85025; 96365; 99282

== ENCOUNTER 2021-11-06 09:01 | Emergency (ER) | payer OTHER, SELFPAY ==
[2021-11-06 09:05] VITALS: BP 134/91; PULSE 108; RESP 18; TEMP 36.8; O2SAT 97; BMI 26.8
--- NOTE | 2021-11-06 09:25 | HMH.EDUTC ---
[facility] Disposition Clinical Impression: Sinusitis Qualifiers: Sinusitis location: maxillary Chronicity: acute Recurrence: non-recurrent Qualified Code(s): J01.00 - Acute maxillary sinusitis, unspecified Acute bronchitis Qualifiers: Bronchitis organism: unspecified organism Qualified Code(s): J20.9 - Acute bronchitis, unspecified Disposition: Home, Self-Care Condition on Discharge: Good Instructions: Sinusitis, DI for Sinusitis, Acute Bronchitis Additional Instructions: Start antibiotic today. Be sure to complete entire prescription even if feeling better Tylenol and ibuprofen as needed for pain or fever Humidifier/vaporizer/hot steamy shower Follow-up with primary care tomorrow if no improvement. Follow-up immediately in the ER of the [facility] for new or worsening symptoms or no noticeable improvement over the next 48-72 hours. Stop smoking Inhaler every 4-6 hours as needed. Should help open airways improved cough, wheezing, shortness of breath Start steroids tomorrow. Helps with inflammation therefore coughing and wheezing. Follow directions on package. Prescriptions: Albuterol Sulfate [Albuterol Sulfate Hfa] 6.7 gm IH Q4-6H PRN 14 Days #1 each PRN Reason: Wheezing [facility] Fluticasone Propionate [Flonase 50mcg nasal spray 16gm] 1 spr NS DAILY 14 Days #9.9 ml [facility]: [facility] predniSONE [Prednisone 20mg Tab] 20 mg PO BID #10 tab [facility]: [facility] Azithromycin [Zithromax 250mg tab] 250 mg PO DIRECTED #6 tab [facility]: [facility] Referrals: Leilani Henry PA [Primary Care Provider] - Time of Disposition: 09:45 Medical Decision Making - David Inquiry Pt receiving controlled substance: No Vital Signs: 11/06/21 09:05 Temperature 98.3 F Temperature Source Oral Pulse Rate [Right Brachial] 108 H Respiratory Rate 108 H Blood Pressure [Right Arm] 134/91 H Blood Pressure Mean [Right Arm] 105 Blood Pressure Source [Right Arm] Automatic Cuff Blood Pressure Position [Right Arm] Sitting 02 Sat by Pulse Oximetry 97 Oxygen Delivery Method Room Air Orders (Tests/Meds): ED MEDICATIONS Discontinued Medications Generic Name Dose Route Start Last Admin Trade Name Elda PRN Reason Stop Dose Admin Dexamethasone Sodium Phosphate 4 mg 11/06/21 09:20 Dexamethasone 4mg/Ml 1ml Vial IM 11/06/21 09:21 ONCE ONE [facility] HPI - General Chief complaint: Urgent Treatment Center Stated complaint: congestion in chest Time Seen by Provider: 11/06/21 09:33 Mode of Arrival: Ambulatory Source of Information: Patient Limitations: No Limitations Description of Symptoms (Recalled from Triage Doc. by RN): PATIENT C/O RUNNY NOSE, COUGH, CONGESTION, AND EAR PAIN SINCE LAST SUNDAY HEENT Symptoms (Recalled from RN notes): Yes Resp Symptoms (Recalled from RN notes): Yes Skin Symptoms (Recalled from RN notes): No MS Symptoms (Recalled from RN notes): No Functional Status (Recalled from RN notes): WNL - History of Present Illness Provider Complaint: 31 yr old female presents for coughing up green sputum,nasal congestion, sinus pressure,wheezing and chilango ear pressure for one week. - Related Data Previous Rx's Medication Instructions Recorded Albuterol Sulfate [Albuterol 6.7 gm IH Q4-6H PRN 14 Days #1 each 11/06/21 Sulfate Hfa] Azithromycin [Zithromax 250mg 250 mg PO DIRECTED #6 tab 11/06/21 tab] Fluticasone Propionate [Flonase 1 spr NS DAILY 14 Days #9.9 ml 11/06/21 50mcg nasal spray 16gm] predniSONE [Prednisone 20mg 20 mg PO BID #10 tab 11/06/21 Tab] Allergies Allergy/AdvReac Type Severity Reaction Status Date / Time No Known Allergies Allergy Verified 10/17/21 15:03 - Worker's Comp Is this a Worker's Comp case?: No [facility] History - Hepatitis A Screen Drug use history?: No High risk sexual behaviors?: No Hi
[2021-11-06 09:26] VITALS: BP 134/91; PULSE 108; RESP 18; TEMP 36.8; O2SAT 97
== END 2021-11-06 09:49 | disposition home or self-care (01) ==
PROVIDERS: Emergency Provider Nurse Practitioner Family; PCP Physician Assistant
DX: J01.00 Acute maxillary sinusitis, unspecified (principal); J02.9 Acute pharyngitis, unspecified; H92.03 Otalgia, bilateral; R06.2 Wheezing; R20.0 Anesthesia of skin; R09.81 Nasal congestion; K21.9 Gastro-esophageal reflux disease without esophagitis; G43.909 Migraine, unspecified, not intractable, without status migrainosus; J45.909 Unspecified asthma, uncomplicated; F41.9 Anxiety disorder, unspecified; F17.210 Nicotine dependence, cigarettes, uncomplicated; Z79.51 Long term (current) use of inhaled steroids; Z79.52 Long term (current) use of systemic steroids; Z79.899 Other long term (current) drug therapy; Z82.49 Family history of ischemic heart disease and other diseases of the circulatory system; Z83.438 Family history of other disorder of lipoprotein metabolism and other lipidemia
CPT/HCPCS: 96372; 99213; G0463

== ENCOUNTER 2022-04-26 08:28 | Emergency (ER) | payer OTHER, SELFPAY ==
[2022-04-26 09:20] VITALS: BP 146/90; PULSE 70; RESP 18; TEMP 36.7; O2SAT 98; BMI 27.6
--- NOTE | 2022-04-26 09:41 | EXP.UTC ---
Discharge Plan Disposition Patient Disposition: Home, Self-Care Condition: Good Prescriptions Prescriptions: New cetirizine 10 mg tablet 10 mg PO DAILY Qty: 30 0RF No Action ondansetron 8 mg tablet,disintegrating 8 mg PO Q8H PRN (Reason: nausea and vomiting) 5 Days Qty: 30 0RF Referrals Follow up/Referrals: Leilani Henry PA [Primary Care Provider] - See instructions Activity Restrictions/Add. Instructions Additional Instructions/Restrictions: You have been evaluated for chest tightness, headache, dizziness. Overall presentation is concerning for viral syndrome and inflammation. Please start taking daily cetirizine. Continue taking your anxiety medication as prescribed. Follow-up with your primary care doctor. They may want you to wear a cardiac event monitor, called a Holter monitor or see a hook tender. Return to the emergency department at once for any new or worsening symptoms, chest pain, palpitations, difficulty breathing or other concerns. Clinical Impressions Clinical Impression: Chest pain, Sinus congestion Instructions Patient Instructions: DI for Sinus Headache, DI for Chest Pain Discharge ED Provider: Coreen Ortega [facility] General Chief complaint: Arrhythmia/Palpitations Stated complaint: dizziness Mode of Arrival: Ambulatory Source of Information: Patient Limitations: No Limitations Time Seen by Provider: 04/26/22 09:41 Description of Symptoms (Recalled from Triage Doc. by RN): PATIENT C/O DIZZINESS, NAUSEA, HEART PALPITATIONS, AND HEADACHE X 1 WEEK. SHE STATES SHE WAS SEEN LAST WEEK AT PCP AND RECEIVED A SHOT AND ORAL ANTIBIOTICS, WHICH SHE STATES SHE DID NOT TAKE HEENT Symptoms (Recalled from RN notes): Yes Resp Symptoms (Recalled from RN notes): No Skin Symptoms (Recalled from RN notes): No MS Symptoms (Recalled from RN notes): No Functional Status (Recalled from RN notes): WNL History of Present Illness Provider Complaint: Patient states that she has been unable to get into her PCP and seen someone else last week states that she has been having heart palpations, headache, dizziness and nausea for about a week State that she was seen last week by a different provider not her PCP that give her a shot and antibiotics but she didnt take them States that today she was still having dizziness and felt like she was having heart palpations and nausea States that dizziness is worse with head movement States that he father with a heart attack and she is wanting to be worked up because she knowns she will go home and worry about it and cause her anxiety to go out the roof and she is worried because her blood pressure is up today Related Data Previous Rx's Medication Instructions Recorded ondansetron 8 mg disintegrating 8 mg PO Q8H PRN nausea and 03/16/22 tablet vomiting 5 days #30 tabs cetirizine 10 mg tablet 10 mg PO DAILY #30 tabs 04/26/22 Allergies Allergy/AdvReac Type Severity Reaction Status Date / Time No Known Allergies Allergy Verified 10/17/21 15:03 Worker's Comp Is this a Worker's Comp case?: No PFSH PFS Medical History (Updated 04/26/22 @ 11:12 by Coreen Ortega DO) Anxiety Asthma Depression Dyspnea Sinusitis Tobacco dependence syndrome Vaginal discharge Surgical History (Updated 04/26/22 @ 09:38 by Sari Hutchins RN) History of section History of cholecystectomy History of tubal ligation Social History (Updated 04/26/22 @ 09:38 by Sari Hutchins RN) Smoking Status: Current every day smoker tobacco type: cigarettes packs per day: 1 second hand exposure: Yes alcohol intake: never substance use type: denies use current occupational status: other Travel in the last 8 weeks: None household members: spouse, family and children housing: house ROS Obtained: Yes All systems reviewed & no additional complaints except as documented and Yes Systems reviewed as appropriate & no additional complaints except as docume
--- NOTE | 2022-04-26 10:12 | ECG_ITS ---
APPROVED REPORT Exam: Resting ECG HR:58 bpm ECG Measurements Heart Rate 58 AXES MS 133 P 61 QRSd 82 QRS 51 QT 412 T 59 QTc 409 Conclusion SINUS BRADYCARDIA WITH SINUS ARRHYTHMIA BORDERLINE ECG UNCONFIRMED REPORT Electronically signed by : Matt Luevano MD 04/26/2022 17:32:20
--- NOTE | 2022-04-26 10:15 | PC.NURSE ---
1015 ED MD AT BEDSIDE
--- NOTE | 2022-04-26 10:21 | HMH.EDGENADL ---
Discharge Plan Disposition Patient Disposition: Home, Self-Care Condition: Good Prescriptions Prescriptions: New cetirizine 10 mg tablet 10 mg PO DAILY Qty: 30 0RF No Action ondansetron 8 mg tablet,disintegrating 8 mg PO Q8H PRN (Reason: nausea and vomiting) 5 Days Qty: 30 0RF Referrals Follow up/Referrals: Leilani Henry PA [Primary Care Provider] - See instructions Activity Restrictions/Add. Instructions Additional Instructions/Restrictions: You have been evaluated for chest tightness, headache, dizziness. Overall presentation is concerning for viral syndrome and inflammation. Please start taking daily cetirizine. Continue taking your anxiety medication as prescribed. Follow-up with your primary care doctor. They may want you to wear a cardiac event monitor, called a Holter monitor or see a asphalt paving machine operator. Return to the emergency department at once for any new or worsening symptoms, chest pain, palpitations, difficulty breathing or other concerns. Clinical Impressions Clinical Impression: Chest pain, Sinus congestion Instructions Patient Instructions: DI for Chest Pain, DI for Sinus Headache Discharge ED Provider: Coreen Ortega Adult HPI General Chief complaint: Arrhythmia/Palpitations Stated complaint: dizziness Time Seen by Provider: 04/26/22 09:41 Mode of Arrival: Ambulatory Source of Information: Patient Limitations: No Limitations Description of Symptoms (Recalled from ER Triage Doc. by RN): PATIENT C/O DIZZINESS, NAUSEA, HEART PALPITATIONS, AND HEADACHE X 1 WEEK. SHE STATES SHE WAS SEEN LAST WEEK AT PCP AND RECEIVED A SHOT AND ORAL ANTIBIOTICS, WHICH SHE STATES SHE DID NOT TAKE History of Present Illness HPI narrative: 31-year-old female presenting to the emergency department with palpitations, chest tightness, headache, dizziness. Symptoms started about 1 week ago. [place] like an upper respiratory infection. She had sinus congestion, dull headache, dizziness, runny nose. Was evaluated at her PCP where she was diagnosed with an upper respiratory infection, given a shot of steroids and a prescription for azithromycin. She did not take the antibiotics. Since then has had improved, but persistent symptoms. She feels like her heart is beating fast. She has a tightness that is located on the left side of her chest. Does not radiate to the jaw, arm, back. No associated pain with inspiration or difficulty breathing. No cough, fevers, chills. She suffers from anxiety, chest pain feels similar to what she has experienced before. She also has a headache that is described as a band sensation across her forehead, from ear to ear. Tylenol relieves it, but it comes back. Feels somewhat lightheaded and off-balance. No vertigo, spinning. No vision changes. No nausea, vomiting, neck pain, rashes on her skin. She takes Effexor for anxiety. No new medications. Related Data Previous Rx's Medication Instructions Recorded ondansetron 8 mg disintegrating 8 mg PO Q8H PRN nausea and 03/16/22 tablet vomiting 5 days #30 tabs cetirizine 10 mg tablet 10 mg PO DAILY #30 tabs 04/26/22 Allergies Allergy/AdvReac Type Severity Reaction Status Date / Time No Known Allergies Allergy Verified 10/17/21 15:03 [facility] Medical History (Updated 04/26/22 @ 11:12 by Coreen Ortega DO) Anxiety Asthma Depression Dyspnea Sinusitis Tobacco dependence syndrome Vaginal discharge Surgical History (Updated 04/26/22 @ 09:38 by Sari Hutchins RN) History of section History of cholecystectomy History of tubal ligation Social History (Updated 04/26/22 @ 09:38 by Sari Hutchins RN) Smoking Status: Current every day smoker tobacco type: cigarettes packs per day: 1 second hand exposure: Yes alcohol intake: never substance use type: denies use current occupational status: other Travel in the last 8 weeks: None household members: spouse, family and children housing
[2022-04-26 10:23] VITALS: BP 130/106; PULSE 83; RESP 18; TEMP 36.7; O2SAT 100; BMI 28.1
[2022-04-26 10:35] LABS: Basophils # 0.1 K/mm3 (0-0.2); Basophils % 1.1 % (0.1-2.0); Eosinophils # 0.1 K/mm3 (0.0-0.4); Eosinophils % 1.4 % (0.1-12.0); Hematocrit 47.5 % (37.0-47.0); Lymphocytes # 1.8 K/mm3 (0.7-4.5); Lymphocytes % 30.4 % (10-50); Mean Corpuscular HGB Conc 31.6 g/dL (31.8-35.4); Mean Corpuscular Hemoglobin 30.9 pg (27.0-31.2); Mean Corpuscular Volume 97.6 fl (81-99); Mean Platelet Volume 9.4 fl (7.4-10.4); Monocytes # 0.3 K/mm3 (0.1-1.0); Monocytes % 4.8 % (1.7-9.3); Neutrophils # 3.8 K/mm3 (1.8-7.8); Neutrophils % 62.3 % (37.0-80.0); Platelet Count 221 K/mm3 (142-424); Red Blood Count 4.87 M/mm3 (4.20-5.40); Red Cell Distribution Width 13.3 % (11.5-17.5)
[2022-04-26 10:45] LABS: Chloride 108 mmol/L (98-107)
[2022-04-26 10:46] LABS: Potassium 3.9 mmoL/L (3.5-5.1); Sodium 139 mmol/L (136-145)
[2022-04-26 10:48] LABS: Alanine Aminotransferase 18 U/L (12-78); Alkaline Phosphatase 73 U/L (38-126); Aspartate Amino Transferase 35 U/L (14-36); Bilirubin,Total 0.4 mg/dl (0.2-1.3); Blood Urea Nitrogen 7 mg/dl (7-17); Creatinine Clearance Estimated 144 mL/min (50-200); Estimated Glomerular Filt Rate 116 ml/min (>60); GFR (African American) 140 ML/MIN (>60)
[2022-04-26 10:49] LABS: Anion Gap 10.9 mEq/L (5-15); Carbon Dioxide 24 mmol/L (22.0-30.0); Glucose 101 mg/dl (74-100); Total Protein,Serum 7.2 g/dl (6.3-8.2)
[2022-04-26 10:53] LABS: HCG Qualitative, Serum Negative (Negative)
[2022-04-26 11:00] VITALS: BP 116/83; PULSE 62; RESP 18; O2SAT 98
[2022-04-26 11:03] LABS: Microscopic, Urine URINE MICROSCOPIC (MICROSCOPIC)
[2022-04-26 11:04] LABS: Appearance,Urine SL CLOUDY (Clear); Bilirubin,Urine Negative (Negative); Blood, Urine 2+ (Negative); Color,Urine YELLOW (Yellow); Glucose,Urine (UA) Negative (Negative); Ketones,Urine Negative (Negative); Leukocyte Esterase,Urine Negative (Negative); Nitrate,Urine Negative (Negative); Protein,Urine Negative (Negative); Specific Gravity, Urine 1.015 (1.005-1.030); Urobilinogen,Urine 0.2 EU/dl (0.2)
[2022-04-26 11:04] LABS: Troponin I < 0.01 ng/ml (0.00-0.034)
[2022-04-26 11:15] VITALS: BP 116/83; PULSE 58; RESP 18; O2SAT 97
--- NOTE | 2022-04-26 11:16 | PC.NURSE ---
AT GOING OVER RESULTS , PT READY FOR D/C
[2022-04-26 11:17] LABS: Bacteria,Urine Trace /lpf; WBC,Urine Occasional #/hpf (0-3)
[2022-04-26 11:20] LABS: Thyroid Stimulating Hormone 1.02 uIU/mL (0.465-4.68)
[2022-04-26 11:23] VITALS: BP 118/63; PULSE 60; RESP 17; TEMP 36.7; O2SAT 99
[2022-04-26 12:24] LABS: Albumin Level 4.4 g/dl (3.5-5.0); Albumin/Globulin Ratio 1.6 (1.1-1.8); Globulin 2.8 g/dL (1.3-3.2)
== END 2022-04-26 11:25 | disposition home or self-care (01) ==
LOC: UTC 08:33 → ER 10:10
PROVIDERS: Emergency Provider Emergency Medicine; PCP Physician Assistant
DX: R07.9 Chest pain, unspecified (principal); R09.81 Nasal congestion; Z79.899 Other long term (current) drug therapy; F41.9 Anxiety disorder, unspecified; J45.909 Unspecified asthma, uncomplicated; F17.210 Nicotine dependence, cigarettes, uncomplicated
CPT/HCPCS: 80053; 81001; 84443; 84484; 84703; 85025; 93005; 99284

== ENCOUNTER → 2022-05-11 09:51 | Outpatient (CLI) | payer OTHER, SELFPAY ==
--- NOTE | 2022-05-11 | CA_ITS ---
APPROVED REPORT Exam: Exercise Treadmill Technologist: Malorie Solorzano, Ht: 5 ft 1 in Wt: 147 lbs BSA: 1.66 m2 HR: 77 bpm BP: 70002/ mmHg Rhythm: sinus arrhythmia, otherwise normal Medical History Medications: ONdansentron,,,,, Cardiac Risk Factors: FHX of CAD, Smoking Stress Test Details Test: Hitesh HR Resting HR: 88 bpm Max Heart Rate (APMHR): 187.796380 bpm Max HR Achieved: 173 bpm Target HR (85% APMHR): 158.324408 bpm % of APMHR: 92.51 Recovery HR: 132 bpm BP Resting BP: 115/85 mmHg Max BP: 143/84 mmHg Recovery BP: 137.0/83.0 mmHg ECG Resting ECG: sinus arrhythmia, otherwise normal Clinical Exercise duration: 09:54 min Highest Stage Achieved: Exercise capacity: 12.8 METs Stress ECG Conclusion Pt exercised total of 9:54 into stage 4 of hitesh protocol. No CP noted. No arrhythmias noted. Allowing for motion artifact, the ST reponse to exercise appears to be within normal. Normal GXT noted. Stress echo images reported separately. Test Summary REST . . . . . . . Sitting REST . . . . . . . Standing REST . . . . . . . Standing REST 04:12 0.0 0.0 88 . 115/ 85 . . Stage 1 01:00 10.0 1.7 109 . . . . Stage 1 02:00 10.0 1.7 122 . . . . Stage 1 03:00 10.0 1.7 121 . . . . Stage 2 01:00 12.0 2.5 128 . . . . Stage 2 02:00 12.0 2.5 132 . 120/ 84 . . Stage 2 03:00 12.0 2.5 136 . 120/ 84 . . Stage 3 01:00 14.0 3.4 146 . . . . Stage 3 02:00 14.0 3.4 153 . . . . Stage 3 03:00 14.0 3.4 160 . 140/ 80 . . Stage 4 00:54 16.0 4.2 84 . . . Stop exercise at 09:54 RECOVERY 01:00 0.0 0.0 132 . . . . RECOVERY 02:00 0.0 0.0 111 . . . . RECOVERY 03:00 0.0 0.0 129 . . . . RECOVERY 04:00 0.0 0.0 96 . 137/ 83 . . RECOVERY 05:00 0.0 0.0 101 . 119/ 83 . . RECOVERY 05:18 0.0 0.0 100 . 119/ 83 . . Electronically signed by : Chris Joseph MD 05/12/2022 09:13:04
--- NOTE | 2022-05-11 09:52 | CA_ITS ---
APPROVED REPORT EXAM: Comprehensive 2D, Doppler, and color-flow Echocardiogram Commercial Retoucher: Hilda Arguelles RVT Ht: 5 ft 1 in Wt: 147lbs BSA: 1.66 BP: 134/84 mmHg Indications: CP,ABN EKG,DYSPENA,SMOKER,PALPS,ASTHMA Stress Test Details HR Max Heart Rate (APMHR): 187.620810 bpm Target HR (85% APMHR): 158.316777 bpm BP ECG Conclusion 1. Patient exercised on Kiko protocol, achieved 12.8 METs of workload on treadmill with no chest pain. The EKG was negative for ischemia. 2. The resting echocardiogram showed normal left ventricular size and function preserved left ventricular systolic function, estimated ejection fraction 55% with no regional wall motion abnormality, with exercise there is increase in contractility of all the segments of the myocardium with hyperdynamic left ventricular systolic response, no obvious regional wall motion abnormality with exercise to suggest underlying ischemic heart disease. 3. Normal exercise stress echo. Electronically signed by : Chris Joseph MD 05/12/2022 09:28:08
== END ==
PROVIDERS: PCP Physician Assistant; Visit Provider Internal Medicine Cardiovascular Disease
DX: R06.00 Dyspnea, unspecified (principal); R07.9 Chest pain, unspecified; R42 Dizziness and giddiness; R94.31 Abnormal electrocardiogram [ECG] [EKG]
CPT/HCPCS: 93017; 93350

== ENCOUNTER → 2022-09-05 18:34 | Outpatient (CLI) | payer OTHER, SELFPAY ==
[2022-09-05 15:11] LABS: Basophils # 0.1 K/mm3 (0-0.2); Basophils % 0.9 % (0.1-2.0); Eosinophils # 0.1 K/mm3 (0.0-0.4); Hematocrit 44.3 % (37.0-47.0); Hemoglobin 14.7 g/dL (12.2-16.2); Lymphocytes # 1.7 K/mm3 (0.7-4.5); Lymphocytes % 29.2 % (10-50); Mean Corpuscular HGB Conc 33.2 g/dL (31.8-35.4); Mean Corpuscular Hemoglobin 31.2 pg (27.0-31.2); Mean Corpuscular Volume 93.9 fl (81-99); Mean Platelet Volume 9.4 fl (7.4-10.4); Monocytes # 0.3 K/mm3 (0.1-1.0); Monocytes % 5.8 % (1.7-9.3); Neutrophils # 3.6 K/mm3 (1.8-7.8); Platelet Count 222 K/mm3 (142-424); Red Blood Count 4.72 M/mm3 (4.20-5.40); Red Cell Distribution Width 12.6 % (11.5-17.5); White Blood Count 5.8 K/mm3 (4.8-10.8)
[2022-09-05 16:09] LABS: Alanine Aminotransferase 21 U/L (12-78); Albumin Level 4.1 g/dl (3.5-5.0); Albumin/Globulin Ratio 1.7 (1.1-1.8); Alkaline Phosphatase 59 U/L (38-126); Anion Gap 9.2 mEq/L (5-15); Aspartate Amino Transferase 22 U/L (14-36); Bilirubin,Total 0.5 mg/dl (0.2-1.3); Blood Urea Nitrogen 9 mg/dl (7-17); Calcium 8.7 mg/dl (8.4-10.2); Carbon Dioxide 26 mmol/L (22.0-30.0); Chloride 107 mmol/L (98-107); Chol/HDL Ratio 3.3 (1-3.5); Cholesterol 151 mg/dl (140-200); Estimated Glomerular Filt Rate 96 ml/min (>60); GFR (African American) 117 ML/MIN (>60); Globulin 2.4 g/dL (1.3-3.2); Glucose 97 mg/dl (74-100); HDL Cholesterol 46 mg/dl (40-60); Lactate Dehydrogenase 164 U/L (313-618); Magnesium 1.9 mg/dl (1.6-2.3); Phosphorous 3.2 mg/dl (2.5-4.5); Potassium 4.2 mmoL/L (3.5-5.1); Sodium 138 mmol/L (136-145); Total Protein,Serum 6.5 g/dl (6.3-8.2); Triglycerides 60 mg/dl (30-150); VLDL Cholesterol 12 mg/dL (0-40)
[2022-09-05 16:21] LABS: C-Reactive Protein 2.2 mg/L (0-4)
[2022-09-05 16:25] LABS: 25-OH Vitamin D, Total 14.4 ng/mL (30-100)
[2022-09-05 16:26] LABS: T4 (Thyroxine) 10.3 ug/dl (5.53-11.0)
[2022-09-05 16:39] LABS: Thyroid Stimulating Hormone 0.88 uIU/mL (0.465-4.68)
[2022-09-05 16:42] LABS: Erythrocyte Sedimentation Rate 11 mm/hr (0-20)
[2022-09-05 16:59] LABS: Vitamin B12 261 pg/mL (239-931)
[2022-09-07 07:38] LABS: RA Latex Turbid. <10.0 IU/mL (<14.0)
[2022-09-07 08:58] LABS: FSH 5.2 mIU/mL (.); LH 13.2 mIU/mL (.); Progesterone 0.1 ng/mL (.); Testosterone,Total 20 ng/dL (8-60); Thyroid Peroxidase Antibodies <9 IU/mL (0-34)
[2022-09-07 12:20] LABS: CK-BB 0 % (0); CK-MB 0 % (0-3); CK-MM 100 % (97-100); Creatine Kinase,Total,Serum 38 U/L (32-182); Macro Type 1 0 % (Not Observed); Macro Type 2 0 % (Not Observed)
[2022-09-07 17:05] LABS: Aldolase 3.5 U/L (3.3-10.3); Anti-Centromere B Antibodies <0.2 AI (0.0-0.9); Anti-Cyclic Citrullinated Pept 2 units (0-19); Anti-DNA (DS) Ab Qn 6 IU/mL (0-9); Anti-Jo-1 <0.2 AI (0.0-0.9); Anti-Smith Antibody <0.2 AI (0.0-0.9); Antichromatin Antibodies <0.2 AI (0.0-0.9); Antiscleroderma-70 Antibodies <0.2 AI (0.0-0.9); RNP Antibodies <0.2 AI (0.0-0.9); Sjogren's Anti-SS-A <0.2 AI (0.0-0.9); Sjogren's Anti-SS-B <0.2 AI (0.0-0.9)
[2022-09-08 07:12] LABS: Thyroid Stimulating Immunoglob <0.10 IU/L (0.00-0.55)
[2022-09-10 16:44] LABS: Estrogen 308 pg/mL (.)
== END ==
PROVIDERS: PCP Physician Assistant; Visit Provider Physician Assistant
DX: M62.89 Other specified disorders of muscle (principal); R25.3 Fasciculation; M62.81 Muscle weakness (generalized)
CPT/HCPCS: 80053; 80061; 82085; 82306; 82550; 82552; 82607; 82672; 83001; 83002; 83615; 83735; 84100; 84144; 84403; 84436; 84443; 84445; 85025; 85651; 86140; 86200; 86225; 86235; 86376; 86431

== ENCOUNTER → 2022-09-11 11:33 | Outpatient (CLI) | payer OTHER, SELFPAY ==
[2022-09-12 16:39] LABS: Anti-DNA (DS) Ab Qn 7 IU/mL (0-9)
[2022-09-13 17:26] LABS: Myoglobin, Urine 2 ng/mL (0-13)
== END ==
PROVIDERS: PCP Physician Assistant; Visit Provider Physician Assistant
DX: M62.89 Other specified disorders of muscle (principal); R25.3 Fasciculation
CPT/HCPCS: 36415; 83874; 86225

== ENCOUNTER → 2022-09-14 09:17 | Outpatient (CLI) | payer OTHER, SELFPAY ==
--- NOTE | 2022-09-14 09:17 | US_ITS ---
FINAL REPORT CLINICAL HISTORY: visible pulse FINDINGS: Limited sonographic images were obtained of the abdomen to evaluate the abdominal aorta and iliac arteries. The abdominal aorta measures up to 1.6 cm in greatest dimension. The iliac arteries are within normal limits. IMPRESSION: No evidence of abdominal aortic aneurysm. Reviewed, Interpreted and Dictated by Sarah Mensah MD Transcribed by Dina Mcdonough Authenticated and [facility]
--- NOTE | 2022-09-14 09:17 | US_ITS ---
FINAL REPORT CLINICAL HISTORY: menometrorrhagia FINDINGS: Transvaginal sonographic images of the pelvis were obtained. The uterus measures 8.1 x 5.4 x 3.3 cm. The endometrium measures 7 mm, which is within normal limits. No uterine mass is identified. The right ovary measures 3.3 cm in length and left ovary measures 2.6 cm in length. Normal blood flow seen to the ovaries. There are 2 right ovarian cyst measuring up to 1.7 cm and 2.1 cm respectively. There is no evidence of free fluid. IMPRESSION: Benign appearing right ovarian cysts, probably benign follicular cysts. Otherwise unremarkable exam. Reviewed, Interpreted and Dictated by Sarah Mensah MD Transcribed by Dina Mcdonough Authenticated and [facility]
== END ==
PROVIDERS: PCP Physician Assistant; Visit Provider Physician Assistant
DX: N92.1 Excessive and frequent menstruation with irregular cycle (principal); R19.00 Intra-abdominal and pelvic swelling, mass and lump, unspecified site
CPT/HCPCS: 76705; 76830

== ENCOUNTER 2023-12-13 15:11 | Outpatient (CLI) | payer OTHER, SELFPAY ==
[2023-12-13 18:47] LABS: Basophils # 0.1 K/mm3 (0-0.2); Basophils % 0.8 % (0.1-2.0); Eosinophils % 0.7 % (0.1-12.0); Hematocrit 43.4 % (37.0-47.0); Hemoglobin 14.1 g/dL (12.2-16.2); Lymphocytes # 1.9 K/mm3 (0.7-4.5); Lymphocytes % 32.1 % (10-50); Mean Corpuscular HGB Conc 32.4 g/dL (31.8-35.4); Mean Corpuscular Hemoglobin 31.5 pg (27.0-31.2); Mean Corpuscular Volume 97.3 fl (81-99); Mean Platelet Volume 9.6 fl (7.4-10.4); Monocytes # 0.3 K/mm3 (0.1-1.0); Monocytes % 4.7 % (1.7-9.3); Neutrophils # 3.6 K/mm3 (1.8-7.8); Neutrophils % 61.6 % (37.0-80.0); Platelet Count 224 K/mm3 (142-424); Red Blood Count 4.47 M/mm3 (4.20-5.40); Red Cell Distribution Width 13.6 % (11.5-17.5); White Blood Count 5.9 K/mm3 (4.8-10.8)
[2023-12-13 18:52] LABS: Alanine Aminotransferase 25 U/L (12-78); Albumin/Globulin Ratio 1.6 (1.1-1.8); Alkaline Phosphatase 57 U/L (38-126); Anion Gap 9.4 mEq/L (5-15); Aspartate Amino Transferase 27 U/L (14-36); Bilirubin,Total 0.5 mg/dl (0.2-1.3); Blood Urea Nitrogen 6 mg/dl (7-17); Calcium 9.1 mg/dl (8.4-10.2); Carbon Dioxide 24 mmol/L (22.0-30.0); Chloride 109 mmol/L (98-107); Chol/HDL Ratio 4.5 (1-3.5); Cholesterol 157 mg/dl (140-200); Estimated Glomerular Filt Rate 96 ml/min (>60); GFR (African American) 116 ML/MIN (>60); Globulin 2.5 g/dL (1.3-3.2); Glucose 79 mg/dl (74-100); HDL Cholesterol 35 mg/dl (40-60); Potassium 3.4 mmoL/L (3.5-5.1); Sodium 139 mmol/L (136-145); Total Protein,Serum 6.5 g/dl (6.3-8.2); Triglycerides 115 mg/dl (30-150); VLDL Cholesterol 23 mg/dL (0-40)
[2023-12-13 19:03] LABS: Direct LDL Cholesterol 90.18 mg/dL (100-129)
[2023-12-13 19:23] LABS: Thyroid Stimulating Hormone 0.69 uIU/mL (0.465-4.68)
== END 2023-12-13 23:59 | disposition home or self-care (01) ==
LOC: LAB.DROPOF 15:12
PROVIDERS: PCP Physician Assistant; Visit Provider Physician Assistant
DX: M62.81 Muscle weakness (generalized) (principal); E55.9 Vitamin D deficiency, unspecified; Z68.30 Body mass index [BMI] 30.0-30.9, adult
CPT/HCPCS: 80053; 80061; 82306; 84443; 85025; 93225

== ENCOUNTER 2024-03-03 15:30 | Outpatient (CLI) | payer OTHER, SELFPAY ==
[2024-03-03 17:38] LABS: Basophils % 0.6 % (0.1-2.0); Eosinophils # 0.1 K/mm3 (0.0-0.4); Eosinophils % 1.2 % (0.1-12.0); Hematocrit 44.4 % (37.0-47.0); Hemoglobin 14.9 g/dL (12.2-16.2); Lymphocytes # 1.8 K/mm3 (0.7-4.5); Lymphocytes % 33.5 % (10-50); Mean Corpuscular HGB Conc 33.5 g/dL (31.8-35.4); Mean Corpuscular Hemoglobin 31.9 pg (27.0-31.2); Mean Corpuscular Volume 95.1 fl (81-99); Mean Platelet Volume 10.1 fl (7.4-10.4); Monocytes # 0.3 K/mm3 (0.1-1.0); Neutrophils # 3.2 K/mm3 (1.8-7.8); Neutrophils % 58.7 % (37.0-80.0); Platelet Count 199 K/mm3 (142-424); Red Blood Count 4.67 M/mm3 (4.20-5.40); Red Cell Distribution Width 13.7 % (11.5-17.5); White Blood Count 5.4 K/mm3 (4.8-10.8)
[2024-03-03 17:55] LABS: Chloride 110 mmol/L (98-107); Sodium 140 mmol/L (136-145)
[2024-03-03 17:56] LABS: Potassium 3.9 mmoL/L (3.5-5.1)
[2024-03-03 17:58] LABS: Alanine Aminotransferase 15 U/L (12-78); Albumin Level 4.2 g/dl (3.5-5.0); Albumin/Globulin Ratio 1.6 (1.1-1.8); Alkaline Phosphatase 56 U/L (38-126); Anion Gap 11.9 mEq/L (5-15); Aspartate Amino Transferase 20 U/L (14-36); Bilirubin,Total 0.5 mg/dl (0.2-1.3); Blood Urea Nitrogen 8 mg/dl (7-17); Carbon Dioxide 22 mmol/L (22.0-30.0); Cholesterol 158 mg/dl (140-200); Estimated Glomerular Filt Rate 96 ml/min (>60); GFR (African American) 116 ML/MIN (>60); Globulin 2.6 g/dL (1.3-3.2); Total Protein,Serum 6.8 g/dl (6.3-8.2); Triglycerides 109 mg/dl (30-150); VLDL Cholesterol 22 mg/dL (0-40)
[2024-03-03 17:59] LABS: Chol/HDL Ratio 4.3 (1-3.5); Glucose 72 mg/dl (74-100); HDL Cholesterol 37 mg/dl (40-60)
[2024-03-03 18:11] LABS: 25-OH Vitamin D, Total 37.3 ng/mL (30-100)
[2024-03-03 18:12] LABS: Direct LDL Cholesterol 92.69 mg/dL (100-129)
[2024-03-03 18:25] LABS: Thyroid Stimulating Hormone 0.68 uIU/mL (0.465-4.68)
== END 2024-03-03 23:59 | disposition home or self-care (01) ==
LOC: LAB.DROPOF 03-04 08:26
PROVIDERS: PCP Physician Assistant; Visit Provider Physician Assistant
DX: E55.9 Vitamin D deficiency, unspecified (principal)
CPT/HCPCS: 80050; 80053; 80061; 82306; 84443; 85025

== ENCOUNTER → 2024-04-16 09:39 | Day surgery (SDC) | payer OTHER, SELFPAY ==
[2024-04-16 09:52] VITALS: BP 118/81; PULSE 84; RESP 18; TEMP 36.3; O2SAT 97
--- NOTE | 2024-04-16 10:24 | P.PCN_ITS ---
Findings:: PROCEDURE: Tilt Table Test REQUESTING: PROVIDER: Angel Tlelez PA-C INDICATION: Recurrent and sporadic dizziness and lightheadedness BETA BLOCKERS: None PRE-TILT VITAL SIGNS (supine position): BP 120/77, HR 72 bpm and sinus rhythm, O2 sats 95% PROCEDURE SUMMARY: Patient was prepped per protocol, IV started, connected to heart, blood pressure, and oxygen saturation monitors. Safety straps were appli ed and she was then tilted at 70 degrees for a total of 30 minutes. She denied any symptoms during the test, except for foot discomfort, toward the end of her time standing upright. She had no dizziness, lightheadedness, near syncope or syncope. Her blood pressure remained stable with minimal changes during the test. The lowest BP was 113/88, occurring after she was upright for 5 minutes. The highest BP was 122/80, occurring after 25 minutes upright. Her heart rate increased to 89 bpm immediately after being tilted upright, and after 5 minutes, it was 95 bpm. After 10 minutes upright her HR was 102 bpm. Highest HR was 106 bpm, occurring after 29 minutes upright. The lowest HR was 92 bpm, occurring after 15 minutes upright. She stayed in a sinus rhythm throughout the test and O2 sats ranged from 96 to 98%. CONCLUSIONS: Unremarkable and asymptomatic tilt table test.
== END | disposition home or self-care (01) ==
PROVIDERS: PCP Physician Assistant; Visit Provider Physician Assistant
DX: R55 Syncope and collapse (principal); R42 Dizziness and giddiness
CPT/HCPCS: 93660

== ENCOUNTER 2024-04-30 14:43 | Outpatient (CLI) | payer OTHER, SELFPAY ==
--- NOTE | 2024-04-30 14:44 | CT_ITS ---
FINAL REPORT CLINICAL HISTORY: Dizziness and Tinnitus FINDINGS: Axial images of the head were obtained without contrast. Coronal reformatted images were also obtained.This study was performed with techniques to keep radiation doses as low as reasonably achievable (ALARA). Individualized dose reduction techniques using automated exposure control or adjustment of mA and/or kV according to the patient's size were employed. There is no evidence of intracranial hemorrhage or mass. The ventricular size is within normal limits. There is no evidence of shift of the midline structures. No abnormal extra axial fluid collection is identified. No skull abnormality is seen on the bone window images. IMPRESSION: No acute intracranial abnormality. Reviewed, Interpreted and Dictated by Jesus Marx III, MD Transcribed by Geri Mason Authenticated and [facility]
== END 2024-04-30 23:59 | disposition home or self-care (01) ==
LOC: RAD 14:43
PROVIDERS: PCP Physician Assistant; Visit Provider Nurse Practitioner
DX: H93.13 Tinnitus, bilateral (principal); R51.9 Headache, unspecified; G89.29 Other chronic pain; R42 Dizziness and giddiness
CPT/HCPCS: 70450

== ENCOUNTER 2024-05-08 10:43 | Outpatient (POV) | payer OTHER, SELFPAY | END 2024-05-08 23:59 | disposition home or self-care (01) | LOC: SC 10:44 | PROVIDERS: Visit Provider Specialist/Technologist | DX: Z00.00 Encounter for general adult medical examination without abnormal findings (principal) ==

== ENCOUNTER 2024-05-15 09:43 | Outpatient (RCR) | payer OTHER, SELFPAY ==
--- NOTE | 2024-05-15 11:03 | HMH.PTOPEV ---
PT Outpatient Evaluation Rehab PT Outpatient Evaluation Start: 05/15/24 10:47 Freq: Status: Active Protocol: Document 05/15/24 10:50 PHORNE (Rec: 05/15/24 11:03 PHORNE [id number]) E-signed By Darius Oswald, PT Outpatient Therapy Subjective History Subjective History This is the initial PT eval for Juli Lui, 34 yowf who presents with c/o increased dizziness x ~ 3 mos with insidious onset. She reports no vertigo symptoms and her dizziness is unchanged with any position and is consistent in the background throughout the day. She reports no episodes of falling or feeling off balance. She state, It feels like a visual thing to me. She does report having corrective lenses, but she does not wear them at all times as she should. She had cardiac work-up performed, which was clear, and CT of the brain shows no abnormalities. She reports hx of B ear drainage intermittently, but hearing test was normal. She also reports hx of seasonal allergies, anxiety, PTSD, migraines with visual component, chronic neck pain with muscular tension, and very remote hx of 1 concussion at 7 yrs of age. New diagnosis of cancer in past 12 No months? Chief Complaint Other Balance Eval Hx of Falls Hx Falls No Nystagmus Nystagmus Presence None Oculomotor Gaze Oculomotor Gaze Nml: Vergence Smooth Pursuit Saccades VOR Cancellation Cover/Uncover Cross Cover [place] Feet Together/Eyes open/Stable Surface pass Feet Together/Eyes Closed/Stable Surface pass Feet Together/Eyes open/Unstable Surface pass Feet Together/Eyes Closed/Unstable pass Surface Miscellaneous Dx PT Eval Objective Objective Pt symptoms only present with visual tracking of an object while independently moving her head side to side. VOR cancellation was normal. No other testing shows symptoms. Outpatient Therapy Assessment Impairments Problems/Impairmments Impaired Driving,Impaired Self Care/Self Management Prognosis Rehab Potential Good Comment Skilled therapy is indicated to reduce symptoms of dizziness and return pt to PLOF. Clinical Impression Consistent with Diagnosis Yes Short Term Goals Number of Weeks 2 Improve Self Care/Self Management Yes: Minimal dizziness with driving Patient to be Ind w/ HEP Yes Jail Goals Number of Weeks 4 Improve Self Care/Self Management Yes: No dizziness with driving Patient to be Ind w/ Advanced HEP Yes Outpatient Therapy Plan of Care Treatment Plan May Include Therapeutic Exercise Including Home Yes Exercise Program Manual Therapy Techniques Yes Neuromuscular Re-education Yes Therapeutic Activities to Return to Yes Previous Functional/Work Level ADL/Self Care Education Yes Eval/Re-Eval Yes Frequency Times per week 1 Duration Number of Weeks 2-4 Addendums This patient is a candidate for social No or vocational rehab? Patient/Guardian verbally acknowledges Yes understanding of treatment program and consents to further treatment? Patient/Guardian verbally acknowledges Yes understanding of diagnosis, prognosis and goals for treatment? Eval Complexity PT Charges 35778 - High Complexity Shoulder/Elbow Eval Shoulder Objective Measurements Elbow Objective Measurements PHYSICIAN CERTIFICATION: I certify the specified therapy services for Juli Lui are required, authorized, and reviewed every 30 days.
== END 2024-05-15 09:45 | disposition home or self-care (01) ==
LOC: PT 09:43
PROVIDERS: Visit Provider Nurse Practitioner
DX: R42 Dizziness and giddiness (principal)
CPT/HCPCS: 97110; 97163

== ENCOUNTER 2024-06-04 09:48 | Outpatient (CLI) | payer OTHER, SELFPAY ==
[2024-06-04 10:23] VITALS: PULSE 57; PULSE 60
[2024-06-04] MEDS: ALBUTEROL 0.083% 2.5 MG/3 ML NEB IH (10:23)
== END 2024-06-04 23:59 | disposition home or self-care (01) ==
LOC: RT 09:49
PROVIDERS: PCP Nurse Practitioner Family; Visit Provider Nurse Practitioner Family
DX: R06.02 Shortness of breath (principal); F17.210 Nicotine dependence, cigarettes, uncomplicated
CPT/HCPCS: 94060; 94640; J7613

== ENCOUNTER 2024-06-27 21:52 | Outpatient (CLI) | payer OTHER, SELFPAY ==
[2024-06-27 22:05] LABS: Coronavirus 19, PCR Not Detected (NotDetected); Influenza A, PCR Not Detected (NotDetected); Influenza B, PCR Not Detected (NotDetected)
== END 2024-06-27 23:59 | disposition home or self-care (01) ==
LOC: LAB 21:53
PROVIDERS: PCP Family Medicine; Visit Provider Family Medicine
DX: R11.2 Nausea with vomiting, unspecified (principal); R51.9 Headache, unspecified; R42 Dizziness and giddiness; H93.19 Tinnitus, unspecified ear; J06.9 Acute upper respiratory infection, unspecified; Z72.0 Tobacco use
CPT/HCPCS: 87636

== ENCOUNTER 2024-07-28 12:42 | Outpatient (CLI) | payer OTHER, SELFPAY ==
--- NOTE | 2024-07-28 12:43 | US_ITS ---
PROCEDURE INFORMATION: Exam: US Left Breast, Complete Exam date and time: 07/28/2024 1:13 PM Age: 34 years old Clinical indication: Left axillary nodule. TECHNIQUE: Imaging protocol: Complete ultrasound of all four quadrants of the left breast and the retroareolar regions, including ultrasound of the axilla when performed. COMPARISON: No relevant prior studies available. FINDINGS: ULTRASOUND: Breast ultrasound findings: Complete scanning of the left breast and the left axilla demonstrates no mass, shadowing, or distortion. Normal lymph nodes are seen in the axillary region. No specific abnormality at the palpable area of concern marked in the left axilla. IMPRESSION: 1. No sonographic evidence of malignancy. No sonographic correlate to the patient's stated palpable area of concern. If there is persistent clinical concern, a diagnostic mammogram would be recommended. 2. Further evaluation of a palpable abnormality should be based on clinical grounds regardless of radiographic findings or lack thereof. ASSESSMENT: BI-RADS Category 1: Negative.
== END 2024-07-28 23:59 | disposition home or self-care (01) ==
LOC: RAD 12:43
PROVIDERS: PCP Family Medicine; Visit Provider Student in an Organized Health Care Education/Training Program
DX: N64.4 Mastodynia (principal)
CPT/HCPCS: 76641

== ENCOUNTER 2024-09-01 12:55 | Emergency (ER) | payer OTHER, SELFPAY ==
[2024-09-01 12:56] VITALS: BP 132/95; PULSE 78; RESP 17; TEMP 36.9; O2SAT 100; BMI 29.2
--- NOTE | 2024-09-01 13:05 | HMH.EDGENADL ---
Discharge Plan Disposition Patient Disposition: Home, Self-Care Condition: Good Prescriptions Prescriptions: No Action cetirizine [All Day Allergy (cetirizine)] 10 mg tablet 10 mg PO DAILY PRN (Reason: allergy symptoms) Qty: 30 0RF azelastine 137 mcg (0.1 %) spray,non-aerosol 2 spray intranasal BID Qty: 30 2RF Rx Instructions: administer into each nostril albuterol sulfate [Ventolin HFA] 90 mcg/actuation HFA aerosol inhaler 1 puff inhalation QID PRN (Reason: soa) Qty: 8.5 4RF Referrals Follow up/Referrals: Jo-Ann Ricardo DO [Staff Physician] - See instructions Kamilla Landin APRN [Primary Care Provider] - See instructions Activity Restrictions/Add. Instructions Additional Instructions/Restrictions: As we discussed continue taking Tylenol alternating with Motrin for symptomatic treatment. Please call tomorrow to make your appointment with [facility]. Follow-up with your PCP for new or worsening signs or symptoms or return to the ER as needed. Clinical Impressions Clinical Impression: Hemorrhagic cyst of right ovary Instructions Patient Instructions: DI for Acute Abdominal Pain Print Language Print Language: [place] Discharge ED Provider: Dawood Ang General Adult HPI <KRYSTYNA Cherry - Last Filed: 09/01/24 15:20> General Chief complaint: Abdominal Pain Stated complaint: Lower R back pain/abd pain Time Seen by Provider: 09/01/24 13:04 History of Present Illness HPI narrative: Patient presents for evaluation of right flank and abdominal pain. Patient reports that she began having right flank and abdominal pain yesterday. It is intensified throughout the day today. She denies any fever chills hemoptysis hematochezia melena nausea vomiting diarrhea. She denies any hematuria or dysuria vaginal discharge. She does have a history of stones and it feels very similar to previous. Related Data Previous Rx's ?Medication ?Instructions ?Recorded albuterol sulfate 90 mcg/actuation 1 puff inhalation QID PRN soa #8.5 06/27/24 aerosol inhaler (Ventolin HFA) grams azelastine 137 mcg (0.1 %) nasal 2 spray intranasal BID #30 mL 06/27/24 spray cetirizine 10 mg tablet (All Day 10 mg PO DAILY PRN allergy 06/27/24 Allergy (cetirizine)) symptoms #30 tabs Allergies Allergy/AdvReac Type Severity Reaction Status Date / Time No Known Allergies Allergy Verified 07/08/24 13:06 [facility] <KRYSTYNA Cherry - Last Filed: 09/01/24 15:20> [facility] Disclaimer: The information contained in this section may have been updated after the patient was seen, as this information can be updated by other users. Medical History BPPV (benign paroxysmal positional vertigo) Normal hearing test of both ears Tinnitus aurium Impacted cerumen, right ear Tinnitus intermittent Chronic headaches Depression Anxiety Tobacco dependence syndrome Dyspnea Sinusitis Vaginal discharge Asthma Surgical History History of tubal ligation History of section History of cholecystectomy Family History Other Family history of hypothyroidism Family history of myocardial infarction Social History (Updated 07/12/24 @ 23:04 by KRYSTYNA Clarke) Smoking Status: Current every day smoker tobacco type: cigarettes packs per day: 1 second hand exposure: Yes alcohol intake: never substance use type: denies use current occupational status: other Travel in the last 8 weeks: None household members: spouse, family and children housing: house Other Medical History Have you received the Flu Vaccine for this season: No Have you received the Pneumonia Vaccine: No <KRYSTYNA Cherry - Last Filed: 09/01/24 15:20> ROS Obtained: Yes Systems reviewed as appropriate & no additional complaints except as documented Physical Exam <KRYSTYNA Cherry - Last Filed: 09/01/24 15:20> General General appearance: alert and in no apparent distress Respiratory Respiratory exam: Present normal lung sounds bilaterally Cardiovascular Cardiovascular exam: Present regular rate Neurological Exam Neurological exam: Present alert and oriented X3 Medical Decision Making <KRYSTYNA Cherry - Last Filed: 09/01/24 15:20> Medical Records Medical records reviewed: Yes I reviewed the patient's medical records. Screening: Per USPSTF and CDC recommendations, given the prevalence of disease in our region, it is our hospital?s policy to screen for HIV and viral Hepatitis for all patients aged 18 and over and those with ongoing risk factors. David Inquiry Pt receiving controlled substance: No Vital Signs: 09/01/24 12:56 09/01/24 13:06 09/01/24 13:30 Temperature 98.5 F Temperature Source Oral Pulse Rate 81 80 Pulse Rate [Left Radial] 78 Respiratory Rate 17 Blood Pressure 132/95 H 129/84 Blood Pressure [Right Arm] 132/95 H Blood Pressure Mean [Right Arm] 107 02 Sat by Pulse Oximetry 100 100 100 Oxygen Delivery Method Room Air Room Air Room Air 09/01/24 14:51 Temperature 98.5 F Temperature Source Pulse Rate 69 Pulse Rate [Left Radial] Respiratory Rate 20 Blood Pressure 115/86 Blood Pressure [Right Arm] Blood Pressure Mean [Right Arm] 02 Sat by Pulse Oximetry Oxygen Delivery Method Room Air Lab Data Lab results reviewed: Yes I reviewed the patient's lab results. Lab Results 09/01/24 13:05: WBC 5.9, RBC 5.16, Hgb 16.3 H, Hct 46.4, MCV 89.9, MCH 31.6 H, MCHC 35.1, RDW 11.9, Plt Count 233, MPV 10.9 H, Neut % (Auto) 60.9, Lymph % (Auto) 30.9, Fountain % (Auto) 6.8, Eos % (Auto) 0.5, Baso % (Auto) 0.7, Neut # (Auto) 3.6, Lymph # (Auto) 1.8, Fountain # (Auto) 0.4, Eos # (Auto) 0.0, Baso # (Auto) 0.0, PT 9.9, INR 0.89 L, Sodium 135 L, Potassium 3.8, Chloride 106, Carbon Dioxide 22, Anion Gap 10.8, BUN 11, Creatinine 0.80, Estimated Creat Clear 109, Estimated GFR 82, Est GFR ( Amer) 99, Glucose 105 H, Calcium 9.4, Magnesium 1.8, Total Bilirubin 0.8, AST 28, ALT 25, Alkaline Phosphatase 50, Total Protein 7.4, Albumin 4.6, Globulin 2.8, Albumin/Globulin Ratio 1.6, Lipase 51 09/01/24 13:17: Urine Color Yellow, Urine Appearance Sl cloudy, Urine pH 6.5, Ur Specific Russell 1.025, Urine Protein Negative, Urine Glucose (UA) Negative, Urine Ketones Negative, Urine Blood Negative, Urine Nitrate Negative, Urine Bilirubin Negative, Urine Urobilinogen 1.0, Ur Leukocyte Esterase Negative, Urine RBC None, Urine WBC Occasional, Ur Squamous Epith Cells 5-10, Urine Bacteria Trace, Urine Mucus Trace 09/01/24 13:05 09/01/24 13:05 Orders (Tests/Meds): ED MEDICATIONS Discontinued Medications Generic Name Dose Route Start Last Admin Trade Name Freq PRN Reason Stop Dose Admin Acetaminophen 1,000 mg 09/01/24 13:12 09/01/24 13:20 Acetaminophen 500mg Tab PO 09/01/24 13:13 1,000 mg ONCE ONE Administration Iopamidol 75 ml 09/01/24 13:23 09/01/24 13:24 Iopamidol-370 (76%);100ml Bottle IV 09/01/24 13:24 75 ml ONCE ONE Administration Ketorolac Tromethamine 15 mg 09/01/24 13:12 09/01/24 13:28 Ketorolac 30mg/Ml Vial IV 09/01/24 13:13 Not Given ONCE ONE Lidocaine 1 each 09/01/24 13:12 09/01/24 13:20 Lidocaine 5% Transdermal Patch TP 09/01/24 13:13 1 each ONCE ONE Administration Methocarbamol 500 mg 09/01/24 13:12 09/01/24 13:20 Methocarbamol 500mg Tablet PO 09/01/24 13:13 500 mg ONCE ONE Administration Ondansetron HCl 4 mg 09/01/24 13:12 09/01/24 13:29 Ondansetron 4mg/2ml Vial IV 09/01/24 13:13 Not Given ONCE ONE Sodium Chloride 10 ml 09/01/24 13:23 09/01/24 13:24 Sodium Chloride 0.9% 10ml Syr (Rad Only) IV 10/01/24 13:22 10 ml NEEDED PRN Administration Maintain IV Site ORDERS Category Date Time Status CT abdomen pelvis w con Stat Cat Scan 09/01/24 13:[address] lumbar spine wo con Stat Cat Scan 09/01/24 13:12 Completed US transvaginal Stat Exams 09/01/24 13:31 Completed CBC w/Auto Diff [Complete Blood Count Auto Diff] Stat Lab 09/01/24 13:05 Completed CMP [Comprehensive Metabolic Panel] Stat Lab 09/01/24 13:05 Completed INR [Prothrombin Time INR] Stat Lab 09/01/24 13:05 Completed Lipase Stat Lab 09/01/24 13:05 Completed Magnesium Stat Lab 09/01/24 13:05 Completed UA [Urinalysis and Microscopic] Stat Lab 09/01/24 13:17 Completed Medical Decision Narrative: In summary patient is a 34-year-old female who presents to the emergency department for evaluation of right flank and abdominal pain. Patient is hemodynamically stable upon arrival, febrile. Physical exam is remarkable for CVA tenderness on the right negative on the left with tenderness in the right central lower quadrant without rebound or guarding or rigidity. Patient is status post cholecystectomy but still has her appendix. She has had a bilateral tubal ligation and denies being . She denies any trauma or precipitating cause. Patient is neurovascularly intact distally in her bilateral lower extremities. Patient has no saddle anesthesia no loss of bowel or bladder function.. Differential diagnosis includes sciatic pain versus kidney stone versus ascending urinary tract infection versus cystitis etc. Initial workup will be conducted with hematologic labs CT scan abdomen pelvis urinalysis. Initial interventions include crystalloid bolus Toradol Tylenol Lidoderm patch. Initial workup reviewed by me and her hematologic labs are nonactionable urinalysis is bland and my informal interpretation of her CT scan abdomen pelvis does not show any evidence of stone or hydronephrosis but does show a approximately 5 cm ovarian cyst. Given this I have ordered a transvaginal ultrasound to further rule out ovarian torsion. Transvaginal ultrasound shows a hemorrhagic cyst that has flow thus torsion is ruled out.. Upon repeat evaluation patient reported feeling some better after initial intervention. Given this patient is appropriate for discharge with referral to [facility] and strict return precautions. <Dawood Ang MD - Last Filed: 09/02/24 06:55> Vital Signs: 09/01/24 12:56 09/01/24 13:06 09/01/24 13:30 Temperature 98.5 F Temperature Source Oral Pulse Rate 81 80 Pulse Rate [Left Radial] 78 Respiratory Rate 17 Blood Pressure 132/95 H 129/84 Blood Pressure [Right Arm] 132/95 H Blood Pressure Mean [Right Arm] 107 02 Sat by Pulse Oximetry 100 100 100 Oxygen Delivery Method Room Air Room Air Room Air 09/01/24 14:51 Temperature 98.5 F Temperature Source Pulse Rate 69 Pulse Rate [Left Radial] Respiratory Rate 20 Blood Pressure 115/86 Blood Pressure [Right Arm] Blood Pressure Mean [Right Arm] 02 Sat by Pulse Oximetry Oxygen Delivery Method Room Air Lab Data Lab Results 09/01/24 13:05: WBC 5.9, RBC 5.16, Hgb 16.3 H, Hct 46.4, MCV 89.9, MCH 31.6 H, MCHC 35.1, RDW 11.9, Plt Count 233, MPV 10.9 H, Neut % (Auto) 60.9, Lymph % (Auto) 30.9, Fountain % (Auto) 6.8, Eos % (Auto) 0.5, Baso % (Auto) 0.7, Neut # (Auto) 3.6, Lymph # (Auto) 1.8, Fountain # (Auto) 0.4, Eos # (Auto) 0.0, Baso # (Auto) 0.0, PT 9.9, INR 0.89 L, Sodium 135 L, Potassium 3.8, Chloride 106, Carbon Dioxide 22, Anion Gap 10.8, BUN 11, Creatinine 0.80, Estimated Creat Clear 109, Estimated GFR 82, Est GFR ( Amer) 99, Glucose 105 H, Calcium 9.4, Magnesium 1.8, Total Bilirubin 0.8, AST 28, ALT 25, Alkaline Phosphatase 50, Total Protein 7.4, Albumin 4.6, Globulin 2.8, Albumin/Globulin Ratio 1.6, Lipase 51 09/01/24 13:17: Urine Color Yellow, Urine Appearance Sl cloudy, Urine pH 6.5, Ur Specific Russell 1.025, Urine Protein Negative, Urine Glucose (UA) Negative, Urine Ketones Negative, Urine Blood Negative, Urine Nitrate Negative, Urine Bilirubin Negative, Urine Urobilinogen 1.0, Ur Leukocyte Esterase Negative, Urine RBC None, Urine WBC Occasional, Ur Squamous Epith Cells 5-10, Urine Bacteria Trace, Urine Mucus Trace Orders (Tests/Meds): ED MEDICATIONS Discontinued Medications Generic Name Dose Route Start Last Admin Trade Name Freq PRN Reason Stop Dose Admin Acetaminophen 1,000 mg 09/01/24 13:12 09/01/24 13:20 Acetaminophen 500mg Tab PO 09/01/24 13:13 1,000 mg ONCE ONE Administration Iopamidol 75 ml 09/01/24 13:23 09/01/24 13:24 Iopamidol-370 (76%);100ml Bottle IV 09/01/24 13:24 75 ml ONCE ONE Administration Ketorolac Tromethamine 15 mg 09/01/24 13:12 09/01/24 13:28 Ketorolac 30mg/Ml Vial IV 09/01/24 13:13 Not Given ONCE ONE Lidocaine 1 each 09/01/24 13:12 09/01/24 13:20 Lidocaine 5% Transdermal Patch TP 09/01/24 13:13 1 each ONCE ONE Administration Methocarbamol 500 mg 09/01/24 13:12 09/01/24 13:20 Methocarbamol 500mg Tablet PO 09/01/24 13:13 500 mg ONCE ONE Administration Ondansetron HCl 4 mg 09/01/24 13:12 09/01/24 13:29 Ondansetron 4mg/2ml Vial IV 09/01/24 13:13 Not Given ONCE ONE Sodium Chloride 10 ml 09/01/24 13:23 09/01/24 13:24 Sodium Chloride 0.9% 10ml Syr (Rad Only) IV 10/01/24 13:22 10 ml NEEDED PRN Administration Maintain IV Site ORDERS Category Date Time Status CT abdomen pelvis w con Stat Cat Scan 09/01/24 13:[address] lumbar spine wo con Stat Cat Scan 09/01/24 13:12 Completed US transvaginal Stat Exams 09/01/24 13:31 Completed CBC w/Auto Diff [Complete Blood Count Auto Diff] Stat Lab 09/01/24 13:05 Completed CMP [Comprehensive Metabolic Panel] Stat Lab 09/01/24 13:05 Completed INR [Prothrombin Time INR] Stat Lab 09/01/24 13:05 Completed Lipase Stat Lab 09/01/24 13:05 Completed Magnesium Stat Lab 09/01/24 13:05 Completed UA [Urinalysis and Microscopic] Stat Lab 09/01/24 13:17 Completed Medical Decision Narrative: In summary patient is a 34-year-old female who presents to the emergency department for evaluation of right flank and abdominal pain. Patient is hemodynamically stable upon arrival, febrile. Physical exam is remarkable for CVA tenderness on the right negative on the left with tenderness in the right central lower quadrant without rebound or guarding or rigidity. Patient is status post cholecystectomy but still has her appendix. She has had a bilateral tubal ligation and denies being . She denies any trauma or precipitating cause. Patient is neurovascularly intact distally in her bilateral lower extremities. Patient has no saddle anesthesia no loss of bowel or bladder function.. Differential diagnosis includes sciatic pain versus kidney stone versus ascending urinary tract infection versus cystitis etc. Initial workup will be conducted with hematologic labs CT scan abdomen pelvis urinalysis. Initial interventions include crystalloid bolus Toradol Tylenol Lidoderm patch. Initial workup reviewed by me and her hematologic labs are nonactionable urinalysis is bland and my informal interpretation of her CT scan abdomen pelvis does not show any evidence of stone or hydronephrosis but does show a approximately 5 cm ovarian cyst. Given this I have ordered a transvaginal ultrasound to further rule out ovarian torsion. Transvaginal ultrasound shows a hemorrhagic cyst that has flow thus torsion is ruled out.. Upon repeat evaluation patient reported feeling some better after initial intervention. Given this patient is appropriate for discharge with referral to [facility] and strict return precautions. I was consulted by the YOLETTE, and we discussed the complexity of the problems being addressed. I approved the treatment and management plan for this patient's care in the Emergency Department, thus performing a substantive portion of the medical decision making. Dawood Ang MD Critical Care <KRYSTYNA Cherry - Last Filed: 09/01/24 15:20> Critical Care Time Critical Care Time: No
[2024-09-01 13:06] VITALS: BP 132/95; PULSE 81; O2SAT 100
--- NOTE | 2024-09-01 13:12 | CT_ITS ---
FINAL REPORT TECHNIQUE: Thin section noncontrast axial CT with coronal and sagittal reconstructions This study was performed with techniques to keep radiation doses as low as reasonably achievable, (ALARA). Individualized dose reduction techniques using automated exposure control or adjustment of mA and/or kV according to the patient's size were employed. CLINICAL HISTORY: Right flank pain radiating down right leg COMPARISON: none FINDINGS: CT LUMBAR SPINE No fracture is present. Alignment is normal. T12-L1: No significant disc disease is present. There is no canal stenosis. L1-L2: No significant disc disease is present. There is no canal stenosis. L2-L3: No significant disc disease is present. There is no canal stenosis. L3-L4: No significant disc disease is present. There is no canal stenosis. L4-L5: No significant disc disease is present. There is no canal stenosis. L5-S1: No significant disc disease is present. There is no canal stenosis. IMPRESSION: No evidence of disc disease or canal stenosis. Reviewed, Interpreted and Dictated by Sarah Mensah MD Transcribed by Kimberly Bray Authenticated and [facility]
--- NOTE | 2024-09-01 13:12 | CT_ITS ---
FINAL REPORT TECHNIQUE: After the administration of intravenous contrast, axial images were obtained through the abdomen and pelvis by computed tomography. The study was performed with techniques to keep radiation dose as low as reasonably achievable, (ALARA). Individual dose reduction techniques using automated exposure control or adjustment of mA and/or kV according to the patient's size were employed. CLINICAL HISTORY: Right flank pain COMPARISON: None FINDINGS: Abdomen: No acute density is seen within the lung bases. Solid abdominal organs are unremarkable. Status post cholecystectomy. No bowel obstruction is present. There is no free air. No fluid collection is seen. There is no adenopathy. Pelvis: The appendix is not visualized. Pelvic bowel loops are unremarkable. Significant enlargement of the right ovary is due to a dominant cystic lesion measuring 45 mm. There is soft tissue density in the dependent portion of the mass which could reflect hemorrhage or debris. The uterus and left ovary are normal. There is a trace amount of free fluid considered physiologic. IMPRESSION: No evidence of upper urinary tract obstruction or obvious stone disease. Dominant complex cyst right ovary, probable hemorrhagic cyst. Recommend ultrasound follow-up in 2 to 3 months. Reviewed, Interpreted and Dictated by Sarah Mensah MD Transcribed by Kimberly Bray Authenticated and [facility]
[2024-09-01 13:18] LABS: Microscopic, Urine URINE MICROSCOPIC (MICROSCOPIC)
[2024-09-01 13:19] LABS: Basophils % 0.7 % (0.1-2.0); Eosinophils % 0.5 % (0.1-12.0); Hematocrit 46.4 % (37.0-47.0); Hemoglobin 16.3 g/dL (12.2-16.2); Lymphocytes # 1.8 K/mm3 (0.7-4.5); Lymphocytes % 30.9 % (10-50); Mean Corpuscular HGB Conc 35.1 g/dL (31.8-35.4); Mean Corpuscular Hemoglobin 31.6 pg (27.0-31.2); Mean Corpuscular Volume 89.9 fl (81-99); Mean Platelet Volume 10.9 fl (7.4-10.4); Monocytes # 0.4 K/mm3 (0.1-1.0); Monocytes % 6.8 % (1.7-9.3); Neutrophils # 3.6 K/mm3 (1.8-7.8); Neutrophils % 60.9 % (37.0-80.0); Platelet Count 233 K/mm3 (142-424); Red Blood Count 5.16 M/mm3 (4.20-5.40); Red Cell Distribution Width 11.9 % (11.5-17.5); White Blood Count 5.9 K/mm3 (4.8-10.8)
[2024-09-01] MEDS: LIDOCAINE 5% TRANSDERMAL PATCH 1 EACH TP (13:20)
[2024-09-01] MEDS: ACETAMINOPHEN 500MG TAB 1000 MG PO (13:20)
[2024-09-01] MEDS: METHOCARBAMOL 500MG TABLET 500 MG PO (13:20)
[2024-09-01] MEDS: SODIUM CHLORIDE 0.9% 10ML SYR (RAD ONLY) 10 ML IV (13:24)
[2024-09-01] MEDS: IOPAMIDOL-370 (76%);100ML BOTTLE 75 ML IV (13:24)
[2024-09-01 13:28] LABS: Albumin Level 4.6 g/dl (3.5-5.0); Chloride 106 mmol/L (98-107); Potassium 3.8 mmoL/L (3.5-5.1); Sodium 135 mmol/L (136-145)
[2024-09-01 13:30] VITALS: BP 129/84; PULSE 80; O2SAT 100
[2024-09-01 13:31] LABS: Alanine Aminotransferase 25 U/L (12-78); Albumin/Globulin Ratio 1.6 (1.1-1.8); Alkaline Phosphatase 50 U/L (38-126); Anion Gap 10.8 mEq/L (5-15); Aspartate Amino Transferase 28 U/L (14-36); Bilirubin,Total 0.8 mg/dl (0.2-1.3); Blood Urea Nitrogen 11 mg/dl (7-17); Calcium 9.4 mg/dl (8.4-10.2); Carbon Dioxide 22 mmol/L (22.0-30.0); Creatinine Clearance Estimated 109 mL/min (50-200); Estimated Glomerular Filt Rate 82 ml/min (>60); GFR (African American) 99 ML/MIN (>60); Globulin 2.8 g/dL (1.3-3.2); Glucose 105 mg/dl (74-100); Lipase 51 U/L (23-300); Magnesium 1.8 mg/dl (1.6-2.3); Total Protein,Serum 7.4 g/dl (6.3-8.2)
--- NOTE | 2024-09-01 13:31 | US_ITS ---
PROCEDURE INFORMATION: Exam: US Pelvis, Transvaginal, Non-Obstetric Exam date and time: 09/01/2024 1:37 PM Age: 34 years old Clinical indication: Pelvic pain; Additional info: Rlq abd pain, ovarian cyst, rule out torsion TECHNIQUE: Imaging protocol: Real-time transvaginal pelvic (non-obstetric) ultrasound with image documentation. Transvaginal imaging was used for better evaluation of the endometrium, adnexa, and/or cervix. COMPARISON: US TRANSVAGINAL 09/14/2022 9:37 AM FINDINGS: Uterus: Uterus is normal. Endometrial stripe is normal. Right ovary/adnexa: Unilocular cyst with internal complexity measuring 4.5 x 3.5 x 4.2 cm, expanding of the right ovary, no evidence of torsion. Left ovary/adnexa: Left ovary is unremarkable, no evidence of torsion. Urinary bladder: Not visualized. Intraperitoneal space: Small amount of non complex fluid within the pelvis, likely physiologic. Soft tissues: scars noted. IMPRESSION: Right hemorrhagic cyst, not reaching size criteria to suggest follow-up.
[2024-09-01 13:34] LABS: INR 0.89 (0.9-1.1); Prothrombin Time 9.9 seconds (9.2-12.1)
[2024-09-01 13:37] LABS: Appearance,Urine SL CLOUDY (Clear); Bilirubin,Urine Negative (Negative); Blood, Urine Negative (Negative); Color,Urine YELLOW (Yellow); Glucose,Urine (UA) Negative (Negative); Ketones,Urine Negative (Negative); Leukocyte Esterase,Urine Negative (Negative); Nitrate,Urine Negative (Negative); PH,Urine 6.5 (5.0-8.5); Protein,Urine Negative (Negative); Specific Gravity, Urine 1.025 (1.005-1.030)
--- NOTE | 2024-09-01 13:40 | PC.NURSE ---
pt going to ultrasound via [facility] and wheelchair
[2024-09-01 13:53] LABS: Bacteria,Urine Trace /lpf; Mucus,Urine Trace /lpf; WBC,Urine Occasional #/hpf (0-3)
--- NOTE | 2024-09-01 14:13 | PC.NURSE ---
returned from us via [facility]
[2024-09-01 14:51] VITALS: BP 115/86; PULSE 69; RESP 20; TEMP 36.9; O2SAT 98
== END 2024-09-01 14:52 | disposition home or self-care (01) ==
PROVIDERS: Physician Assistant; Emergency Provider Emergency Medicine; PCP Family Medicine
DX: N83.201 Unspecified ovarian cyst, right side (principal); M54.50 Low back pain, unspecified; R10.9 Unspecified abdominal pain
CPT/HCPCS: 72131; 74177; 76830; 80053; 81001; 83690; 83735; 85025; 85610; 99285; J1885; J2405; Q9967

== ENCOUNTER 2024-09-17 09:22 | Outpatient (CLI) | payer OTHER, SELFPAY | END 2024-09-17 23:59 | disposition home or self-care (01) | LOC: LAB 09:23 | PROVIDERS: PCP Nurse Practitioner Family; Visit Provider Obstetrics & Gynecology | DX: Z00.8 Encounter for other general examination (principal) | CPT/HCPCS: 36415 ==

== ENCOUNTER 2024-10-17 08:17 | Outpatient (CLI) | payer OTHER, SELFPAY ==
--- NOTE | 2024-10-17 08:17 | MR_ITS ---
FINAL REPORT TECHNIQUE: Multiplanar MR, without and with gadolinium enhancement CLINICAL HISTORY: brain fog,headaches,dizziness FINDINGS: Diffusion sequences show no signal abnormality to indicate acute infarct. No mass, hemorrhage or edema is seen. Ventricles are normal. Major vascular flow voids are intact. Following contrast administration, no mass or abnormal enhancement is seen. IMPRESSION: Unremarkable MR evaluation the brain with contrast Reviewed, Interpreted and Dictated by Sarah Mensah MD Transcribed by Geri Mason Authenticated and [facility]
[2024-10-17] MEDS: SODIUM CHLORIDE 0.9% 10ML SYR (RAD ONLY) 10 ML IV (09:22)
[2024-10-17] MEDS: GADOTERIDOL INJ 20ML SYRINGE 13 ML IV (09:23)
== END 2024-10-17 23:59 | disposition home or self-care (01) ==
LOC: RAD 08:17
PROVIDERS: PCP Nurse Practitioner Family; Visit Provider Physician Assistant
DX: R51.9 Headache, unspecified (principal); R41.89 Other symptoms and signs involving cognitive functions and awareness; G89.29 Other chronic pain; R42 Dizziness and giddiness
CPT/HCPCS: 70553; A9576

== ENCOUNTER 2024-11-26 10:46 | Outpatient (CLI) | payer MEDICAID, SELFPAY ==
--- NOTE | 2024-11-26 10:50 | US_ITS ---
PROCEDURE: US TRANSVAGINAL CLINICAL INDICATION: 2 month f/u US COMPARISON: US US TRANSVAGINAL from 09/14/[address] ABDOMEN PELVIS W CON from 09/01/2024 US US TRANSVAGINAL from 09/01/2024 FINDINGS: Transvaginal sonographic images of the pelvis were obtained. UTERUS: 8.6 cm x 5.9 cmx 3.6 cm anteverted with a combined endometrial thickness of 5.7mm. The endometrium is homogeneous. There is a nabothian cyst in the cervix. A scar is seen in the lower uterine segment. LEFT OVARY: 3.4cmx2.6iab9qa with a volume of 12.2ml. There is a dominant follicle measuring 2.4 cm x 1.8 cm x 2.1 cm. There are several other small peripheral follicles RIGHT OVARY: 2.0cmx 1.3cmx1.6 cm with a volume of 2.2ml. There are multiple small peripheral follicles giving the ovary a polycystic appearance. The previously described 4.5 cm hemorrhagic cyst has now completely resolved. Both ovaries are seen and appear normal. Doppler flow to both ovaries are seen. There is no fluid in the cul-de-sac. IMPRESSION: 1. Anteverted uterus normal in shape and size. The endometrium is thin measuring 5.7 mm. 2. The left ovary contains a dominant follicle measuring 2.4 cm. There are several small peripheral follicles. The right ovary contains multiple small peripheral follicles giving the ovary a polycystic appearance. The previously described 4.5 cm hemorrhagic cyst in the right ovary has resolved. 3. No fluid in the cul-de-sac. Dictated by: Shin Phillips MD 11/26/2024 14:18 Shin Phillips MD in OV 11/26/2024 14:18
== END 2024-11-26 23:59 | disposition home or self-care (01) ==
LOC: RAD 10:47
PROVIDERS: PCP Family Medicine; Visit Provider Obstetrics & Gynecology
DX: N92.1 Excessive and frequent menstruation with irregular cycle (principal); R10.84 Generalized abdominal pain; N83.201 Unspecified ovarian cyst, right side; M54.50 Low back pain, unspecified
CPT/HCPCS: 76830

== ENCOUNTER 2025-01-23 13:40 | Emergency (ER) | payer MEDICAID, SELFPAY ==
--- OUTSIDE RECORDS SUMMARY | 2023-09-25 07:00 | XMS_ITS ---
Author Organization [facility] Address [address] [place] [address] Care Team Providers Care Defense Travel Administrator Name Role Phone EMERY MILLER Primary Care Provider [phone] LUIS Alvarado Unavailable [phone] REASON FOR VISIT NPE DENTAL Social History Sex Assigned At : Social History Observation Description Sex Assigned At Female Encounters Encounter Location Date Provider Diagnosis [place] [facility] [place]Note 2] [address] [place] [address] 09/25/2023 LUSI ROQUE Plan Of Treatment No Information Progress Notes * Lucille CHANDLERB:1990 (34 yo F)Acc No.[id number]:09/25/2023 Patient: Juli DIAS Provider: Crescencio Roque D.M.D. :1990 A ge:33 Y S ex:Female Date:09/25/2023 Address:[address], [place], [place] Pcp:EMERY MILLER Structured Data: : No ; Migrant : No Subjective: * Chief Complaints: * 1 . NPE DENTAL. * Medical History: Objective: Assessment: Plan: * Treatment: * Billing Information: * Visit Code: * Procedure Codes: * Electronic signature of LUIS ROQUE , DMD on 01/23/2025 at 01:54 PM EDT Sign off status: Pending * Provider: Crescencio Roque D.M.D. Date: 0 09/25/2023 Generated for Kizzy garcia/Arielle/Gloria on: 0 01/23/2025 01:54 PM EDT
--- OUTSIDE RECORDS SUMMARY | 2023-12-14 06:00 | XMS_ITS ---
Author Organization [facility] Address [address], [place] [id number] Care Team Providers Care Criminal Justice Faculty Name Role Phone Edwin Carrasquillo MD [phone] REASON FOR VISIT MM FOLLOW UP Encounters Encounter Location Date Provider Diagnosis [facility] [address], [place] [id number] 12/14/2023 Edwin Carrasquillo Plan Of Treatment No Information Progress Notes * Aravind CHANDLERaDOB:1990 (34 yo F)Acc No.[id number]:12/14/2023 Patient: Juli DIAS Provider: Amber Carrasquillo MD :1990 A ge:33 Y S ex:Female Date:12/14/2023 Address:[facility] [address] [id number] Subjective: * Chief Complaints: * 1 . MM FOLLOW UP. * Medical History: Objective: * Vitals: Assessment: Plan: * Treatment: * * Electronic signature of Philip Carrasquillo MD on 01/23/2025 at 01:54 PM EDT Sign off status: Pending * Provider: Amber Carrasquillo MD Date: 12/14/2023 Generated for Kizzy garcia/Arielle/eTfeliciasmitting on: 0 01/23/2025 01:54 PM EDT
[2025-01-23 13:46] VITALS: BP 130/82; PULSE 76; RESP 18; TEMP 36.8; O2SAT 100; BMI 27.8
--- OUTSIDE RECORDS SUMMARY | 2025-01-23 13:54 | XMS_ITS | Clinical Summary ---
Author Organization Healthcare Address [address] [place] [address] Care Team Providers Care Data Communications Software Consultant Name Role Phone Leilani Henry Primary Care Provider [phone] Social History Tobacco Use Types Packs/Day Years Used Date Smoking Tobacco: Every Day Alcohol Use Standard Drinks/Week Comments Yes 0 (1 standard drink = 0.6 oz pur e alcohol) Comments Unknown Sex and Gender Information Value Date Recorded Sex Assigned at Not on file Legal Sex Female 8:39 PM EDT Gender Identity Not on file Sexual Orientation Not on file Last Filed Vital Signs Vital Sign Reading Time Taken Comments Blood Pressure - - Pulse - - Temperature - - Respiratory Rate - - Oxygen Saturation - - Inhaled Oxygen Concentration - - Weight 75.8 kg (167 lb) 01/19/2016 10:12 AM EDT Height 154.9 cm (5' 1 ) 01/19/2016 10:12 AM EDT Body Mass Index 31.55 01/19/2016 10:12 AM EDT Plan of Treatment Not on file Care Teams Data Communications Software Consultant Relationship Specialty Start Date End Date Leilani Henry PA [address] [place] [address] PCP - General 12/31/20
--- OUTSIDE RECORDS SUMMARY | 2025-01-23 13:54 | XMS_ITS | Patient Health Record ---
Author Organization [facility] Address [address] [place] [phone] Reason For Referral No Information Problems Problem Type SNOMED Code ICD Code Onset Dates Problem Status W/U Status Risk Notes Problem Post-traumatic stress disorder, unspecified (F43.10) Active confirmed Plan Of Treatment No Information
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
--- OUTSIDE RECORDS SUMMARY | 2025-01-23 13:55 | XMS_ITS | Patient Health Record ---
Author Organization [facility] Address [address] [place] [address] Care Team Providers Care Multiple Resaw Operator Name Role Phone [facility] Primary [facility] Pr ovider Unavailable Allergies No Known Allergies Reason For Referral No Information Medications Medication SIG (Take, Route, Frequency, Duration) Notes Start Date End Date Status Albuterol Sulfate HFA 108 (90 Base) MCG/ACT 2 puffs as needed Inhalation every 6 hrs for 30 days 10/17/2023 Active Albuterol Active Problems Problem Type SNOMED Code ICD Code Onset Dates Problem Status W/U Status Risk Notes Problem Asthma (737483999) Asthma (J45.909) Active confirmed Problem 56664381 Smoker (F17.200) Active confirmed Plan Of Treatment No Information Insurance Providers Payer Name Payer Address Payer Phone Subscriber Number Group Number Insured Name Patient Relationship to Insured Coverage Start Date Coverage End Date [employer] [address] [place] [address] [id number] Juli Lui Self - patient is the insured 4 Medical (General) History Medical History History ICD Code Asthma J45.909
[2025-01-23 14:00] VITALS: BP 129/83; PULSE 76; O2SAT 97
--- NOTE | 2025-01-23 14:09 | ED_ITS ---
<Statement entered by Ashely Rodriguez DO - 01/24/25 08:07> I was consulted by the YOLETTE, and we discussed the complexity of the problems being addressed. I approved the treatment and management plan for this patient's care in the emergency department, thus performing a substantive portion of the medical decision making. Based on reassuring history and exam with no other neurologic deficits noted, it is felt the patient likely has upper extremity radiculopathy from musculoskeletal strain versus cervical radiculopathy. Imaging including CT scans considered but deemed to be not necessary as they would likely not change house attendant. Ashely Rodriguez DO Discharge Plan Disposition Patient Disposition: Home, Self-Care Prescriptions Prescriptions: New cyclobenzaprine 10 mg tablet 10 mg PO BID Qty: 60 0RF prednisone 20 mg tablet 20 mg PO BID 6 Days Qty: 12 0RF No Action cetirizine [All Day Allergy (cetirizine)] 10 mg tablet 10 mg PO DAILY PRN (Reason: allergy symptoms) Qty: 30 0RF azelastine 137 mcg (0.1 %) spray,non-aerosol 2 spray intranasal BID Qty: 30 2RF Rx Instructions: administer into each nostril albuterol sulfate [Ventolin HFA] 90 mcg/actuation HFA aerosol inhaler 1 puff inhalation QID PRN (Reason: soa) Qty: 8.5 4RF miconazole nitrate 2 % cream 1 appful vaginal HS 7 Days Qty: 45 0RF Nurtec ODT 75 mg tablet,disintegrating 75 mg PO ONCE PRN (Reason: Migraine) Qty: 8 11RF albuterol sulfate 2.5 mg /3 mL (0.083 %) solution for nebulization 2.5 mg inhalation Q6H Qty: 75 0RF azithromycin [Zithromax Z-Shay] 250 mg tablet See Rx Instructions PO .COMPLEX Qty: 6 0RF Rx Instructions: For 250 mg dose pack: take 500 mg today (day 1), then 250 mg for 4 days (days 2-5) PO methylprednisolone 4 mg tablets,dose pack See Rx Instructions PO PER PKG DIR Qty: 21 0RF Rx Instructions: PO PER PKG DIR guaifenesin 1,200 mg tablet extended release 12hr 1,200 mg PO BID PRN (Reason: congestion) Qty: 20 0RF Referrals Follow up/Referrals: Matt Morgan MD [Primary Care Provider, Family Practice] - See instructions Clinical Impressions Clinical Impression: Nerve compression syndrome Print Language Print Language: Angolan Discharge ED Provider: Ashely Rodriguez General Adult HPI General Chief complaint: Extremity Injury, Upper Stated complaint: tingling in Right arm and hand-sent by yves Time Seen by Provider: 01/23/25 13:44 Mode of Arrival: Ambulatory Source of Information: Patient Description of Symptoms (Recalled from ER Triage Doc. by RN): Pt present with numbness and tingling in her right forearm and fingers after moving furniture 2 days ago. Pt reports no pain however right trap soreness. Pt is very anxious, went to [facility] and they referred her to ER. History of Present Illness HPI narrative: 34-year-old female presents to the ED today with complaint of right forearm ti ngling and tingling in her right ring finger when she touches it. She states that she was moving furniture on Sunday and did not notice any pain on Sunday but on she woke up with soreness in her trapezius muscle on the right and the numbness in her forearm and fingers on the right hand. Patient has health anxiety and states that she went to the urgent treatment center and was sent to the ER for this. Patient has no weakness in either arm. She has no weakness in her legs or rest of her body. She denies any numbness or tingling in her face. She denies any speech changes. Related Data Previous Rx's ?Medication ?Instructions ?Recorded albuterol sulfate 90 mcg/actuation 1 puff inhalation Q ID PRN soa #8.5 06/27/24 aerosol inhaler (Ventolin HFA) grams azelastine 137 mcg (0.1 %) nasal 2 spray intranasal BI D #30 mL 06/27/24 spray cetirizine 10 mg tablet (All Day 10 mg PO DAILY PRN al lergy 06/27/24 Allergy (cetirizine)) symptoms #30 tabs miconazole nitrate 2 % vaginal 1 appful vaginal HS 7 d ays #45 12/05/24 cream grams rimegepant 75 mg disintegrating 75 mg PO ONCE PRN Migr maricel #8 tabs 12/26/24 tablet (Nurtec ODT) albuterol sulfate 2.5 mg/3 mL 2.5 mg (3 mL) inhalation Q6H #75 mL 12/29/24 (0.083 %) solution for nebulization azithromycin 250 mg tablet See Rx Instructions PO .COM PLEX #6 12/29/24 (Zithromax Z-Shay) tabs guaifenesin 1,200 mg tablet, 1,200 mg PO BID PRN conge stion #20 12/29/24 extended release 12 hr tabs methylprednisolone 4 mg tablets in See Rx Instructions PO PER PKG DIR 12/29/24 a dose pack #21 tabs cyclobenzaprine 10 mg tablet 10 mg PO BID #60 tabs 02/11 prednisone 20 mg tablet 20 mg PO BID 6 days #12 tabs 01/23/25 Allergies Allergy/AdvReac Type Severity Reaction Status Date / Time No Known Allergies Allergy Verified 12/29/24 09:47 [facility] Disclaimer: The information contained in this section may have been updated after the patient was seen, as this information can be updated by other users. Medical History Palpitation History of anemia History of gastroesophageal reflux (GERD) History of asthma History of dizziness Tobacco use Episodic lightheadedness BPPV (benign paroxysmal positional vertigo) Normal hearing test of both ears Tinnitus aurium Impacted cerumen, right ear Tinnitus intermittent Chronic headaches Depression Anxiety Tobacco dependence syndrome Dyspnea Sinusitis Vaginal discharge Asthma Surgical History History of tubal ligation History of section History of cholecystectomy Family History Other Coronary artery disease Diabetes Family history of hypothyroidism Family history of myocardial infarction Hypertension Thyroid disorder Social History Smoking Status: Current every day smoker tobacco type: cigarettes packs per day: 1 second hand exposure: Yes alcohol intake: never substance use type: denies use current occupational status: other Travel in the last 8 weeks?: None household members: spouse, family and children housing: house Have you lived/traveled outside US in past 30 days?: No Contact w/someone who lives/traveled outside US past 30 days?: No Exposure to someone with infectious disease in past 14 days?: No Do you have a fever (greater than 100.4 F or 38 C)?: No Have you tested positive for COVID-19?: No Exposed to someone with COVID-19 in past 14 days?: No Do you have a sore throat?: No Do you have a cough?: No Do you have any weakness?: No Do you have any diarrhea?: No Are you experiencing any unusual bleeding?: No Do you have any muscle aches/pain?: No Do you have any abdominal pain?: No Are you experiencing loss of taste or smell?: No Other Medical History Have you received the Flu Vaccine for this season: No Have you received the Pneumonia Vaccine: No ROS Obtained: Yes Systems reviewed as appropriate & no additional complaints except as documented Constitutional Constitutional: Reports as per HPI Physical Exam General General appearance: alert and anxious Head Head exam: atraumatic and normocephalic Eye Eye exam: Present normal appearance, PERRL and EOMI ENT ENT exam: Present normal oropharynx and mucous membranes moist Neck Neck exam: Present normal inspection, full ROM and trachea midline Respiratory Respiratory exam: Present normal lung sounds bilaterally Cardiovascular Cardiovascular exam: Present regular rate, normal rhythm, normal heart sounds, +S1 and +S2 Abdominal Exam Abdominal exam: Present soft and normal bowel sounds Extremities Exam Extremities exam: Present normal inspection, full ROM and normal capillary refill Back Exam Back exam: Present normal inspection and full ROM Neurological Exam Neurological exam: Present alert, oriented X3 and normal gait Skin Skin exam: Present warm, dry and intact Medical Decision Making Medical Records Screening: Per USPSTF and CDC recommendations, given the prevalence of disease in our region, it is our hospital?s policy to screen for HIV and viral Hepatitis for all patients aged 18 and over and those with ongoing risk factors. David Inquiry Pt receiving controlled substance: No David was queried for this patient: No Vital Signs: 01/23/25 13:46 01/23/25 13:46 01/23/25 14:00 Temperature 98.3 F Temperature Source Oral Pulse Rate 76 76 Respiratory Rate 18 Blood Pressure 130/82 129/83 Blood Pressure [Left Arm] 130/82 Blood Pressure Mean [Left Arm] 98 Blood Pressure Source Blood Pressure Source [Left Arm] Automatic Cuff Blood Pressure Position Blood Pressure Position [Left Arm] Sitting 02 Sat by Pulse Oximetry 100 100 97 Oxygen Delivery Method Room Air 01/23/25 14:44 Temperature 97.9 F Temperature Source Oral Pulse Rate 75 Respiratory Rate 16 Blood Pressure 122/83 Blood Pressure [Left Arm] Blood Pressure Mean [Left Arm] Blood Pressure Source Automatic Cuff Blood Pressure Source [Left Arm] Blood Pressure Position Sitting Blood Pressure Position [Left Arm] 02 Sat by Pulse Oximetry Oxygen Delivery Method Room Air Orders (Tests/Meds): ED MEDICATIONS Discontinued Medications Generic Name Dose Route Start Last Admin Trade Name Freq PRN Reason Stop Dose Admin Ketorolac Tromethamine 30 mg 01/23/25 14:08 01/23/25 14:39 Ketorolac 30mg/Ml Vial IM 01/23/25 14:09 Not Given ONCE ONE Orphenadrine Citrate 60 mg 01/23/25 14:03 01/23/25 14:38 Orphenadrine Citrate 60mg/2ml Vial IM 01/23/25 14:04 Not Given ONCE ONE Medical Decision Narrative: patient is a 34-year-old female presenting to the emergency department for evaluation of tingling in her right forearm and right ring finger as well as soreness in her right trapezius after moving furniture on Sunday.. Patient is hemodynamically stable and nontoxic-appearing upon arrival, afebrile. Differential diagnosis includes CVA, radiculopathy, among others. Considered labs and imaging however patient exhibits symptoms of radiculopathy from trapezius muscle strain. Patient has no obvious weakness or deformity that would exhibit stroke symptoms. She has equal reflexes and movements as well as strength bilaterally. Patient is anxious and says she always is anxious about her health. Discussed with Dr. Rodriguez symptoms and she agrees with plan to send home with muscle relaxers and anti-inflammatory and follow-up with PCP. Critical Care Critical Care Time Critical Care Time: No
[2025-01-23 14:44] VITALS: BP 122/83; PULSE 75; RESP 16; TEMP 36.6; O2SAT 97
== END 2025-01-23 14:46 | disposition home or self-care (01) ==
PROVIDERS: Emergency Provider Emergency Medicine; PCP Family Medicine
DX: G58.9 Mononeuropathy, unspecified (principal)
CPT/HCPCS: 99283

== ENCOUNTER 2025-02-05 09:20 | Outpatient (CLI) | payer MEDICAID, SELFPAY ==
--- OUTSIDE RECORDS SUMMARY | 2023-09-25 07:00 | XMS_ITS ---
Author Organization [facility] Address [address] [place] [address] Care Team Providers Care Hydrographic Surveyor Name Role Phone EMERY MILLER Primary Care Provider LUIS Alvarado Unavailable [phone] REASON FOR VISIT NPE DENTAL Social History Sex Assigned At : Social History Observation Description Sex Assigned At Female Encounters Encounter Location Date Provider Diagnosis [place] [facility] [place] [facility] [place] [address] [facility] [place] [address] 09/25/2023 LUIS ROQUE Plan Of Treatment No Information Progress Notes * Lucille CHANDLERB:1990 (34 yo F)Acc No.[id number]:09/25/2023 Patient: Juli DIAS Provider: Crescencio Roque D.M.D. :1990 A ge:33 Y S ex:Female Date:09/25/2023 Address:[address], [place], [place] Pcp:EMERY MILLER Structured Data:[place] : No ; Migrant : No Subjective: * Chief Complaints: * 1 . NPE DENTAL. * Medical History: Objective: Assessment: Plan: * Treatment: * Billing Information: * Visit Code: * Procedure Codes: * Electronic signature of LUIS ROQUE , DMD on 02/09/2025 at 09:30 AM EDT Sign off status: Pending * Provider: Crescencio Roque D.M.D. Date: 0 09/25/2023 Generated for Kizzy garcia/Arielle/Gloria on: 0 02/09/2025 09:30 AM EDT
--- OUTSIDE RECORDS SUMMARY | 2023-12-14 06:00 | XMS_ITS ---
Author Organization [facility] Address [address] [place], [place] [id number] Care Team Providers Care Jigger Machine Operator Name Role Phone Edwin Carrasquillo MD [phone] REASON FOR VISIT MM FOLLOW UP Encounters Encounter Location Date Provider Diagnosis [facility] [address] [place], [place] [phone] 12/14/2023 Edwin Carrasquillo Plan Of Treatment No Information Progress Notes * Aravind CHANDLERaDOB:1990 (34 yo F)Acc No.[id number]:12/14/2023 Patient: Juli DIAS Provider: Amber Carrasquillo MD :1990 A ge:33 Y S ex:Female Date:12/14/2023 Address:[facility] [address] , [facility] Subjective: * Chief Complaints: * 1 . MM FOLLOW UP. * Medical History: Objective: * Vitals: Assessment: Plan: * Treatment: * * Electronic signature of Philip Carrasquillo MD on 02/09/2025 at 09:30 AM EDT Sign off status: Pending * Provider: Amber Carrasquillo MD Date: 12/14/2023 Generated for Kizzy garcia/Arielle/eTfeliciasmitting on: 02/09/2025 09:30 AM EDT
[2025-02-05 18:23] LABS: Coronavirus 19, PCR Not Detected (NotDetected); Influenza A, PCR Not Detected (NotDetected); Influenza B, PCR Not Detected (NotDetected)
[2025-02-05 18:40] LABS: Basophils % 0.4 % (0.1-2.0); Eosinophils % 0.4 % (0.1-12.0); Immature Granulocytes # 0.01 10^3uL; Immature Granulocytes % 0.1 %; Lymphocytes # 1.9 K/mm3 (0.7-4.5); Lymphocytes % 26.1 % (10-50); Mean Corpuscular HGB Conc 34.8 g/dL (31.8-35.4); Mean Corpuscular Hemoglobin 31.1 pg (27.0-31.2); Mean Corpuscular Volume 89.3 fl (81-99); Mean Platelet Volume 11.4 fl (7.4-10.4); Monocytes # 0.5 K/mm3 (0.1-1.0); Monocytes % 6.4 % (1.7-9.3); Neutrophils # 4.9 K/mm3 (1.8-7.8); Neutrophils % 66.6 % (37.0-80.0); Nucleated Red Blood Cells # 0 10^3/uL; Nucleated Red Blood Cells % 0 %; Platelet Count 236 K/mm3 (142-424); Red Blood Count 5.15 M/mm3 (4.20-5.40); Red Cell Distribution Width-SD 39.3 fL; White Blood Count 7.3 K/mm3 (4.8-10.8)
[2025-02-05 19:42] LABS: Alanine Aminotransferase 20 U/L (12-78); Albumin Level 4.2 g/dl (3.5-5.0); Albumin/Globulin Ratio 1.6 (1.1-1.8); Alkaline Phosphatase 63 U/L (38-126); Aspartate Amino Transferase 24 U/L (14-36); Bilirubin,Total 0.9 mg/dl (0.2-1.3); Blood Urea Nitrogen 6 mg/dl (7-17); Calcium 9.6 mg/dl (8.4-10.2); Carbon Dioxide 23 mmol/L (22.0-30.0); Chloride 109 mmol/L (98-107); Estimated Glomerular Filt Rate 82 ml/min (>60); GFR (African American) 99 ML/MIN (>60); Globulin 2.7 g/dL (1.3-3.2); Glucose 91 mg/dl (74-100); Sodium 136 mmol/L (136-145); Total Protein,Serum 6.9 g/dl (6.3-8.2)
[2025-02-05 20:16] LABS: Thyroid Stimulating Hormone 0.75 uIU/mL (0.465-4.68)
--- OUTSIDE RECORDS SUMMARY | 2025-02-09 09:30 | XMS_ITS | Clinical Summary ---
Author Organization [facility] Address [address] [place] [address] Care Team Providers Care Tearoom Hostess Name Role Phone Leilani Henry Primary Care Provider [phone] Social History Tobacco Use Types Packs/Day Years [...] of Treatment Not on file Care Teams Tearoom Hostess Relationship Specialty Start Date End Date Leilani Henry PA [address] [place] [address] PCP - General 12/31/20
--- OUTSIDE RECORDS SUMMARY | 2025-02-09 09:30 | XMS_ITS | Patient Health Record ---
Author Organization [facility] Address [address] [place] [phone] Reason For Referral No Information Problems Problem Type SNOMED Code ICD Code Onset Dates Problem Status W/U Status Risk Notes Problem Post-traumatic stress disorder, unspecified (F43.10) Active confirmed Plan Of Treatment No Information
--- OUTSIDE RECORDS SUMMARY | 2025-02-09 09:31 | XMS_ITS | Patient Health Record ---
Author Organization [facility] Address [address] [place] [address] Care Team Providers Care Manager Strategy Name Role Phone [facility] Primary Care Pr ovider Unavailable Allergies No [...] Status W/U Status Risk Notes Problem Asthma (688974576) Asthma (J45.909) Active confirmed Problem 19864265 Smoker (F17.200) Active confirmed Plan Of Treatment No Information Insurance Providers Payer Name Payer Address Payer Phone Subscriber Number Group Number Insured Name Patient Relationship to Insured Coverage Start Date Coverage End Date [employer] [address] [facility] [place] [address] [id number] Juli Lui Self - patient is the insured 4 Medical (General) History Medical History History ICD Code Asthma J45.909
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
== END 2025-02-05 23:59 | disposition home or self-care (01) ==
LOC: LAB.DROPOF 02-09 09:20
PROVIDERS: PCP Family Medicine; Visit Provider Family Medicine
DX: M54.50 Low back pain, unspecified (principal); R69 Illness, unspecified
CPT/HCPCS: 80053; 84443; 85025; 87636

== ENCOUNTER 2025-03-21 00:15 | Emergency (ER) | payer MEDICAID, SELFPAY ==
--- OUTSIDE RECORDS SUMMARY | 2023-09-25 07:00 | XMS_ITS ---
Author Organization [facility] Address [address] [place] [address] Care Team Providers Care Lidder Name Role Phone EMERY MILLER Primary Care Provider LUIS Alvarado Unavailable [phone] REASON FOR VISIT NPE DENTAL Social History Sex Assigned At : Social History Observation Description Sex Assigned At Female Encounters Encounter Location Date Provider Diagnosis [place] [facility] [address] [place] [address] 09/25/2023 LUIS ROQUE Plan Of Treatment No Information Progress Notes * Lucille CHANDLERB:1990 (34 yo F)Acc No.[id number]:09/25/2023 Patient: Juli DIAS Provider: Crescencio Roque D.M.D. :1990 A ge:33 Y S ex:Female Date:09/25/2023 Address:[address], [place], [place] Pcp:EMERY MILLER Structured Data:[place] : No ; Migrant : No Subjective: * Chief Complaints: * 1 . NPE DENTAL. * Medical History: Objective: Assessment: Plan: * Treatment: * Billing Information: * Visit Code: * Procedure Codes: * Electronic signature of LUIS ROQUE , DMD on 03/21/2025 at 12:20 AM EDT Sign off status: Pending * Provider: Crescencio Roque D.M.D. Date: 0 09/25/2023 Generated for Kizzy garcia/Arielle/Gloria on: 0 03/21/2025 12:20 AM EDT
--- OUTSIDE RECORDS SUMMARY | 2023-12-14 06:00 | XMS_ITS ---
Author Organization [facility] Address [address], [place] [phone] Care Team Providers Care Consulting Application Engineer Name Role Phone Edwin Carrasquillo MD [phone] REASON FOR VISIT MM FOLLOW UP Encounters Encounter Location Date Provider Diagnosis [facility] [address] [place], [place] [id number] 12/14/2023 Edwin Carrasquillo Plan Of Treatment No Information Progress Notes * Aravind CHANDLERaDOB:1990 (34 yo F)Acc No.[id number]:12/14/2023 Patient: Juli DIAS Provider: Amber Carrasquillo MD :1990 A ge:33 Y S ex:Female Date:12/14/2023 Address:[facility] [address] , [id number] Subjective: * Chief Complaints: * 1 . MM FOLLOW UP. * Medical History: Objective: * Vitals: Assessment: Plan: * Treatment: * * Electronic signature of Philip Carrasquillo MD on 03/21/2025 at 12:20 AM EDT Sign off status: Pending * Provider: Amber Carrasquillo MD Date: 12/14/2023 Generated for Kizzy garcia/Arielle/eTfeliciasmitting on: 03/21/2025 12:20 AM EDT
--- OUTSIDE RECORDS SUMMARY | 2025-03-21 00:20 | XMS_ITS | Clinical Summary ---
Author Organization [facility] Address [address] [place] [address] Care Team Providers Care Hose Wrapper Name Role Phone Leilani Henry Primary Care Provider [phone] Social History Tobacco Use Types Packs/Day Years [...] of Treatment Not on file Care Teams Hose Wrapper Relationship Specialty Start Date End Date Leilani Henry PA [address] [place] [address] PCP - General 12/31/20
--- OUTSIDE RECORDS SUMMARY | 2025-03-21 00:20 | XMS_ITS | Patient Health Record ---
Author Organization [facility] Address [address] [place] [phone] Reason For Referral No Information Problems Problem Type SNOMED Code ICD Code Onset Dates Problem Status W/U Status Risk Notes Problem Post-traumatic stress disorder, unspecified (F43.10) Active confirmed Plan Of Treatment No Information
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
--- OUTSIDE RECORDS SUMMARY | 2025-03-21 00:21 | XMS_ITS | Patient Health Record ---
Author Organization [facility] Address [address] [place] [address] Care Team Providers Care Applications Programmer Analyst Name Role Phone [facility] Pr ovider Unavailable Allergies No Known Allergies Reason For Referral No Information Medications Medication SIG (Take, Route, Frequency, Duration) Notes Start Date End Date Status Albuterol Sulfate HFA 108 (90 Base) MCG/ACT 2 puffs as needed Inhalation every 6 hrs; Duration: 30 days 10/17/2023 Active Albuterol Active Problems Problem Type SNOMED Code ICD Code Onset Dates Problem Status W/U Status Risk Notes Problem Asthma (048932230) Asthma (J45.909) Active confirmed Problem Smoker (15248378) Smoker (F17.200) Active confirmed Plan Of Treatment No Information Insurance Providers Payer Name Payer Address Payer Phone Subscriber Number Group Number Insured Name Patient Relationship to Insured Coverage Start Date Coverage End Date [employer] [address] [facility] [address] [id number] Juli Lui Self - patient is the insured 4 Medical (General) History Medical History History ICD Code Asthma J45.909
--- NOTE | 2025-03-21 00:22 | ECG_ITS ---
APPROVED REPORT Exam: Resting ECG HR:88 bpm ECG Measurements Heart Rate 88 AXES NY 132 P 150 QRSd 86 QRS 102 QT 349 T 138 QTc 395 Conclusion SINUS RHYTHM ARM LEADS REVERSED [INVERTED P AND QRS IN I] NORMAL ECG No STEMI Electronically signed by : CHRYSTAL TOWNSEND, 03/21/2025 06:33:23
[2025-03-21 00:23] VITALS: BP 111/92; PULSE 86; RESP 16; TEMP 36.5; O2SAT 99; BMI 27.6
[2025-03-21 01:00] VITALS: BP 119/90; PULSE 62; RESP 16; O2SAT 95
[2025-03-21 01:30] VITALS: BP 130/87; PULSE 80; RESP 20; TEMP 36.4; O2SAT 97
[2025-03-21 01:33] LABS: Alanine Aminotransferase 18 U/L (12-78); Albumin Level 4.5 g/dl (3.5-5.0); Albumin/Globulin Ratio 1.8 (1.1-1.8); Alkaline Phosphatase 63 U/L (38-126); Anion Gap 11.4 mEq/L (5-15); Aspartate Amino Transferase 23 U/L (14-36); Bilirubin,Total 0.4 mg/dl (0.2-1.3); Blood Urea Nitrogen 9 mg/dl (7-17); Calcium 9.7 mg/dl (8.4-10.2); Carbon Dioxide 23 mmol/L (22.0-30.0); Chloride 108 mmol/L (98-107); Creatinine Clearance Estimated 103 mL/min (50-200); Creatinine,Serum 0.80 mg/dl (0.52-1.04); Estimated Glomerular Filt Rate 82 ml/min (>60); GFR (African American) 99 ML/MIN (>60); Globulin 2.5 g/dL (1.3-3.2); Glucose 111 mg/dl (74-100); Potassium 3.4 mmoL/L (3.5-5.1); Sodium 139 mmol/L (136-145); Total Protein,Serum 7.0 g/dl (6.3-8.2)
[2025-03-21] MEDS: KETOROLAC 30MG/ML VIAL 30 MG IV (01:38)
[2025-03-21] MEDS: LIDOCAINE 5% TRANSDERMAL PATCH 1 EACH TD (01:38)
[2025-03-21] MEDS: METOCLOPRAMIDE 10MG TABLET 10 MG PO (01:39)
[2025-03-21 02:03] LABS: Hematocrit 46.1 % (37.0-47.0); Hemoglobin 16.0 g/dL (12.2-16.2); Immature Granulocytes % 0.2 %; Mean Corpuscular HGB Conc 34.7 g/dL (31.8-35.4); Mean Corpuscular Hemoglobin 31.1 pg (27.0-31.2); Mean Corpuscular Volume 89.5 fl (81-99); Nucleated Red Blood Cells % 0 %; Platelet Count 248 K/mm3 (142-424); Red Blood Count 5.15 M/mm3 (4.20-5.40); Red Cell Distribution Width-SD 40.1 fL; White Blood Count 8.1 K/mm3 (4.8-10.8)
--- NOTE | 2025-03-21 02:03 | ED_ITS ---
Discharge Plan Disposition Patient Disposition: Home, Self-Care Condition: Good Prescriptions Prescriptions: New ondansetron 4 mg tablet,disintegrating 4 mg PO Q6H PRN (Reason: nausea and vomiting) Qty: 10 0RF lidocaine 5 % adhesive patch,medicated See Rx Instructions .ROUTE .COMPLEX Qty: 15 0RF Rx Instructions: Apply to most painful area and leave on for 12 hours. Remove and leave off for 12 hours before using a new patch. No Action azelastine 137 mcg (0.1 %) spray,non-aerosol 2 spray intranasal BID Qty: 30 2RF Rx Instructions: administer into each nostril albuterol sulfate [Ventolin HFA] 90 mcg/actuation HFA aerosol inhaler 1 puff inhalation QID PRN (Reason: soa) Qty: 8.5 4RF Nurtec ODT 75 mg tablet,disintegrating 75 mg PO ONCE PRN (Reason: Migraine) Qty: 8 11RF albuterol sulfate 2.5 mg /3 mL (0.083 %) solution for nebulization 2.5 mg inhalation Q6H Qty: 75 0RF hydroxyzine pamoate [Vistaril] 25 mg capsule 25 mg PO TID PRN (Reason: anxiety) 3 Days Qty: 10 0RF buspirone 5 mg tablet 5 mg PO BID Qty: 60 2RF cyclobenzaprine 10 mg tablet 10 mg PO BID Qty: 60 0RF Referrals Follow up/Referrals: Kamilla Landin APRN [Primary Care Provider, Family Practice] - See instructions Activity Restrictions/Add. Instructions Additional Instructions/Restrictions: You were evaluated in the ER and are believed to be appropriate for discharge at this time. Take the prescribed Zofran if needed for nausea. As discussed, I recommend for headache taking a dose of Tylenol and ibuprofen together with a small amount of caffeine. Do not exceed the recommended dose on the bottle. Drink water and eat a small snack each time you take these medications to avoid side effects. Remove the lidocaine patch around noon today 03/21/25. Use the prescribed lidocaine patches as directed if needed for muscle pain in the right shoulder. Make an appointment to follow-up with Dr. Kruger again regarding headache to consider chronic migraine medication. You can also discuss this with your primary care doctor. Make an appointment with your primary care doctor for reevaluation in 2 to 3 days. Return to the ER with any new, worsening, or otherwise concerning symptoms. Clinical Impressions Clinical Impression: Headache, Muscle spasm Print Language Print Language: Australian Discharge ED Provider: Papito Colby Adult HPI General Chief complaint: Headache Stated complaint: pain R side face, neck, R arm, dizziness, nausea Time Seen by Provider: 03/21/25 01:17 Mode of Arrival: Ambulatory Source of Information: Patient Description of Symptoms (Recalled from ER Triage Doc. by RN): pt presents to the Ed d/t headache. pt states been going on for four days and is complaining of dizziness at times. pt states I think I am having a panic attack History of Present Illness HPI narrative: 34-year-old female presents to the ER complaining of headache. Patient reports that has been going on for the last 4 days. She describes it in the right side of the head feeling like it is behind the right eye and radiates into the right side of her neck and shoulder. She states she also has dizziness but this has been persistent and unchanged for the last year. She has had multiple workups including CTs, neurology evaluations, etc. according to the patient without specific diagnoses though she has been told previously by neurology she may have vestibular migraine. Patient states she has been alternating Tylenol and ibuprofen to get some relief from this but her headache has not gone away so she came to the ER for further workup. She was very anxious stating she has a history of severe anxiety and thought she was having a panic attack because she had some nausea which has resolved since being in the ER. She has no numbness, tingling, or weakness, no ringing in the ears or vision changes. No fevers or chills, no recent illness, no other complaints or concerns. Importantly, patient does NOT describe thunderclap onset or maximal intensity at start of her headache. Related Data Previous Rx's ?Medication ?Instructions ?Recorded albuterol sulfate 90 mcg/actuation 1 puff inhalation Q ID PRN soa #8.5 06/27/24 aerosol inhaler (Ventolin HFA) grams azelastine 137 mcg (0.1 %) nasal 2 spray intranasal BI D #30 mL 06/27/24 spray rimegepant 75 mg disintegrating 75 mg PO ONCE PRN Migr maricel #8 tabs 12/26/24 tablet (Nurtec ODT) albuterol sulfate 2.5 mg/3 mL 2.5 mg (3 mL) inhalation Q6H #75 mL 12/29/24 (0.083 %) solution for nebulization cyclobenzaprine 10 mg tablet 10 mg PO BID #60 tabs 02/11 hydroxyzine pamoate 25 mg capsule 25 mg PO TID PRN anx iety 3 days 02/05/25 (Vistaril) #10 caps buspirone 5 mg tablet 5 mg PO BID #60 tabs 5 lidocaine 5 % topical patch See Rx Instructions topica l 03/21/25 .COMPLEX #15 ea ondansetron 4 mg disintegrating 4 mg PO Q6H PRN nausea and 03/21/25 tablet vomiting #10 tabs Allergies Allergy/AdvReac Type Severity Reaction Status Date / Time No Known Allergies Allergy Verified 03/09/25 11:33 [facility] Disclaimer: The information contained in this section may have been updated after the patient was seen, as this information can be updated by other users. Medical History Palpitation History of anemia History of gastroesophageal reflux (GERD) History of asthma History of dizziness Tobacco use Episodic lightheadedness BPPV (benign paroxysmal positional vertigo) Normal hearing test of both ears Tinnitus aurium Impacted cerumen, right ear Tinnitus intermittent Chronic headaches Depression Anxiety Tobacco dependence syndrome Dyspnea Sinusitis Vaginal discharge Asthma Surgical History History of tubal ligation History of section History of cholecystectomy Family History Other Coronary artery disease Diabetes Family history of hypothyroidism Family history of myocardial infarction Hypertension Thyroid disorder Social History Smoking Status: Current every day smoker tobacco type: cigarettes packs per day: 1 second hand exposure: Yes alcohol intake: never substance use type: denies use current occupational status: other Travel in the last 8 weeks?: None household members: spouse, family and children housing: house Other Medical History Have you received the Flu Vaccine for this season: No Have you received the Pneumonia Vaccine: No ROS Obtained: Yes Systems reviewed as appropriate & no additional complaints except as documented Per HPI Physical Exam General General appearance: alert and in no apparent distress Head Head exam: atraumatic and normocephalic Eye Eye exam: Present PERRL and EOMI; Absent nystagmus ENT ENT exam: Present mucous membranes moist Neck Neck exam: Present normal inspection, full ROM and other (Right sided cervical paraspinal muscle discomfort with palpation, obvious spasm of the right trapezius muscle) Chest Chest inspection: Present symmetric chest wall rise Respiratory Respiratory exam: Present normal lung sounds bilaterally; Absent respiratory distress, wheezes or stridor Cardiovascular Cardiovascular exam: Present regular rate and normal rhythm Abdominal Exam Abdominal exam: Present soft; Absent distention or tenderness Extremities Exam Extremities exam: Present full ROM Neurological Exam Neurological exam: Present alert, oriented X3, CN II-XII intact, normal gait and other (No cerebellar symptoms); Absent motor sensory deficit Psychiatric Psychiatric exam: Present normal affect and normal mood Skin Skin exam: Present warm and dry Medical Decision Making Medical Records Medical records reviewed: Yes I reviewed the patient's medical records. Screening: Per USPSTF and CDC recommendations, given the prevalence of disease in our region, it is our hospital?s policy to screen for HIV and viral Hepatitis for all patients aged 18 and over and those with ongoing risk factors. David Inquiry Pt receiving controlled substance: No Vital Signs: 03/21/25 00:23 03/21/25 01:00 03/21/25 01:30 Temperature 97.7 F 97.6 F Temperature Source Oral Pulse Rate 62 80 Pulse Rate [Right Radial] 86 Respiratory Rate 16 16 20 Blood Pressure 119/90 130/87 Blood Pressure [Right Arm] 111/92 H Blood Pressure Mean 99 Blood Pressure Mean [Right Arm] 98 Blood Pressure Position [Right Arm] Supine 02 Sat by Pulse Oximetry 99 95 97 Oxygen Delivery Method Room Air Lab Data Lab Results 03/21/25 00:22: WBC 8.1, RBC 5.15, Hgb 16.0, Hct 46.1, MCV 89.5, MCH 31.1, MCHC 34.7, RDW 12.2, Plt Count 248, MPV 11.5 H, Neut % (Auto) 51.0, Lymph % (Auto) 40.3, [place] % (Auto) 7.1, Eos % (Auto) 0.9, Baso % (Auto) 0.5, Neut # (Auto) 4.1, Lymph # (Auto) 3.3, [place] # (Auto) 0.6, Eos # (Auto) 0.1, Baso # (Auto) 0.0, Sodium 139, Potassium 3.4 L, Chloride 108 H, Carbon Dioxide 23, Anion Gap 11.4, BUN 9, Creatinine 0.80, Estimated Creat Clear 103, Estimated GFR 82, Est GFR ( Amer) 99, Glucose 111 H, Calcium 9.7, Total Bilirubin 0.4, AST 23, ALT 18, Alkaline Phosphatase 63, Total Protein 7.0, Albumin 4.5, Globulin 2.5, Albumin/Globulin Ratio 1.8 03/21/25 00:22 03/21/25 00:22 Orders (Tests/Meds): ED MEDICATIONS Discontinued Medications Generic Name Dose Route Start Last Admin Trade Name Calvinq PRN Reason Stop Dose Admin Ketorolac Tromethamine 30 mg 03/21/25 01:33 03/21/25 01:38 Ketorolac 30mg/Ml Vial IV 03/21/25 01:34 30 mg ONCE ONE Administration Lidocaine 1 each 03/21/25 01:33 03/21/25 01:38 Lidocaine 5% Transdermal Patch TD 03/21/25 01:34 1 each ONCE ONE Administration Metoclopramide HCl 10 mg 03/21/25 01:33 03/21/25 01:39 Metoclopramide 10mg Tablet PO 03/21/25 01:34 10 mg ONCE ONE Administration ORDERS Category Date Time Status CBC w/Auto Diff [Complete Blood Count Auto Diff] Stat Lab 03/21/25 00:22 Completed CMP [Comprehensive Metabolic Panel] Stat Lab 03/21/25 00:22 Completed Medical Decision Narrative: In summary, this 34-year-old female with history of anxiety, depression, vestibular migraine presents to the emergency department today with right sided headache. On initial evaluation patient is hemodynamically stable, afebrile, GCS 15, no neurologic deficits, no nystagmus, pupils are equally round and briskly reactive to light and accommodation, EOMI, no numbness, tingling, weakness, patient does have tenderness of the right trapezius muscle but no midline cervical tenderness, deformity, or step-off. No neurologic deficits. Benign abdomen. Differential diagnosis includes but is not limited to migraine, tension headache, anxiety, muscle spasm, electrolyte abnormality. Basic serum labs were ordered. I had considered doing CT head to rule out acute intracranial pathology such as intracranial bleed or mass but given patient's 4 days of symptoms with no neurologic deficits and lack of thunderclap onset or maximal intensity at the beginning of her headache I have extremely low suspicion for acute intracranial pathology and do not believe CT is indicated. Patient also reports she has had multiple CTs in the past for her problems and does not think it is necessary. Labs reviewed by me demonstrate no leukocytosis or anemia, normal platelets, CMP nonactionable. Patient did not want to receive anything sedating including Benadryl stating she has to drive home and be with her kids. Patient received Toradol, Reglan, and lidocaine patch was applied to the right trapezius muscle. On reevaluation patient has had significant improvement of symptoms and is resting much more comfortably. He is appropriate for discharge at this time and comfortable with this plan. Patient was given instructions on symptomatic monitoring and management, use of prescriptions for Zofran and lidocaine patch, follow up instructions including to see her neurologist again, and return precautions for the emergency department. Patient indicated understanding and was discharged in stable condition. Critical Care Critical Care Time Critical Care Time: No
[2025-03-21 02:13] VITALS: BP 130/87; PULSE 80; RESP 20; TEMP 36.4; O2SAT 97
== END 2025-03-21 02:14 | disposition home or self-care (01) ==
PROVIDERS: Emergency Provider Emergency Medicine; PCP Family Medicine
DX: R51.9 Headache, unspecified (principal); M62.838 Other muscle spasm; F41.9 Anxiety disorder, unspecified; F33.9 Major depressive disorder, recurrent, unspecified; F17.210 Nicotine dependence, cigarettes, uncomplicated
CPT/HCPCS: 80053; 85025; 93005; 96374; 99284; J1885

== ENCOUNTER 2025-03-30 10:22 | Outpatient (CLI) | payer MEDICAID, SELFPAY ==
--- OUTSIDE RECORDS SUMMARY | 2025-03-30 10:25 | XMS_ITS | Patient Health Record ---
Author Organization [facility] Address [address] [place] [phone] Reason For Referral No Information Problems Problem Type SNOMED Code ICD Code Onset Dates Problem Status W/U Status Risk Notes Problem Post-traumatic stress disorder, unspecified (F43.10) Active confirmed Plan Of Treatment No Information
--- OUTSIDE RECORDS SUMMARY | 2025-03-30 10:25 | XMS_ITS | Clinical Summary ---
Author Organization [facility] Address [address] [place] [address] Care Team Providers Care Stoneworking Belt Sander Name Role Phone Leilani Henry Primary Care Provider [phone] Social History Tobacco Use Types Packs/Day Years [...] of Treatment Not on file Care Teams Stoneworking Belt Sander Relationship Specialty Start Date End Date Leilani Henry PA [address] [place] [address] PCP - General 12/31/20
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
--- OUTSIDE RECORDS SUMMARY | 2025-03-30 10:26 | XMS_ITS | Patient Health Record ---
Author Organization [facility] Address [address] [place] [address] Care Team Providers Care Bilingual School Psychologist Name Role Phone [facility] Primary Care Pr ovider Unavailable Allergies No [...] Status W/U Status Risk Notes Problem Asthma (860901860) Asthma (J45.909) Active confirmed Problem Smoker (44136663) Smoker (F17.200) Active confirmed Plan Of Treatment No Information Insurance Providers Payer Name Payer Address Payer Phone Subscriber Number Group Number Insured Name Patient Relationship to Insured Coverage Start Date Coverage End Date [employer] [address] [place] [address] [id number] Juli Lui Self - patient is the insured 4 Medical (General) History Medical History History ICD Code Asthma J45.909
[2025-03-30 12:01] LABS: Free T4 (Free Thyroxine) 1.17 ng/dl (0.78-2.19)
[2025-03-30 12:15] LABS: Thyroid Stimulating Hormone 0.69 uIU/mL (0.465-4.68)
[2025-03-30 12:34] LABS: Vitamin B12 221 pg/mL (239-931)
[2025-03-31 08:17] LABS: Triiodothyronine (T3) Free 3.1 pg/mL (2.0-4.4)
== END 2025-03-30 23:59 | disposition home or self-care (01) ==
LOC: LAB 10:22
PROVIDERS: PCP Family Medicine; Visit Provider Specialist
DX: R00.0 Tachycardia, unspecified (principal)
CPT/HCPCS: 36415; 82607; 84439; 84443; 84481; 86376; 86800

== ENCOUNTER 2025-04-23 08:45 | Outpatient (CLI) | payer MEDICAID, SELFPAY ==
--- OUTSIDE RECORDS SUMMARY | 2023-12-14 06:00 | XMS_ITS ---
Author Organization [facility] Address [address] [place], [place] [phone] Care Team Providers Care Trimmer Sorter Name Role Phone Edwin Carrasquillo MD [phone] REASON FOR VISIT MM FOLLOW UP Encounters Encounter Location Date Provider Diagnosis [facility] [address] [place], [place] [id number] 12/14/2023 Edwin Carrasquillo Plan Of Treatment No Information Progress Notes * Aravind CHANDLERaDOB:1990 (34 yo F)Acc No.[id number]:12/14/2023 Patient: Juli DIAS Provider: Amber Carrasquillo MD :1990 A ge:33 Y S ex:Female Date:12/14/2023 Address:[facility] [address] , [id number] Subjective: * Chief Complaints: * 1 . MM FOLLOW UP. * Medical History: Objective: * Vitals: Assessment: Plan: * Treatment: * * Electronic signature of Philip Carrasquillo MD on 04/23/2025 at 08:50 AM EDT Sign off status: Pending * Provider: Amber Carrasquillo MD Date: 12/14/2023 Generated for Kizzy garcia/Arielle/eTfeliciasmitting on: 0 04/23/2025 08:50 AM EDT
--- OUTSIDE RECORDS SUMMARY | 2025-04-23 08:50 | XMS_ITS | Clinical Summary ---
Author Organization [facility] Address [address] [place] [address] Care Team Providers Care Vegetable Ii Farmworker Name Role Phone Leilani Henry Primary Care Provider [phone] Social History Tobacco Use Types Packs/Day Years [...] of Treatment Not on file Care Teams Vegetable Ii Farmworker Relationship Specialty Start Date End Date Leilani Henry PA [address] [place] [address] PCP - General 12/31/20
--- OUTSIDE RECORDS SUMMARY | 2025-04-23 08:50 | XMS_ITS | Patient Health Record ---
Author Organization [facility] Address [address] [place] [id number] Reason For Referral No Information Problems Problem Type SNOMED Code ICD Code Onset Dates Problem Status W/U Status Risk Notes Problem Post-traumati c stress disorder (89215584) Post-traumatic stress disorder, unspecified (F43.10) Active confirmed Plan Of Treatment No Information
--- OUTSIDE RECORDS SUMMARY | 2025-04-23 08:51 | XMS_ITS | Patient Health Record ---
Author Organization [facility] Address [address] [facility] [address] [place] [address] Care Team Providers Care Branch Controller Name Role Phone [facility] Primary Care Pr ovider Unavailable [...] Status W/U Status Risk Notes Problem Asthma (427581472) Asthma (J45.909) Active confirmed Problem Smoker (08406122) Smoker (F17.200) Active confirmed Plan Of Treatment No Information Insurance Providers Payer Name Payer Address Payer Phone Subscriber Number Group Number Insured Name Patient Relationship to Insured Coverage Start Date Coverage End Date [employer]etter [address] [facility] [address] [id number] Juli Lui Self - patient is the insured Medical (General) History Medical History History ICD Code Asthma J45.909
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
--- NOTE | 2025-04-23 09:00 | US_ITS ---
PROCEDURE: US TRANSVAGINAL CLINICAL INDICATION: pelvic pain COMPARISON: CT CT ABDOMEN PELVIS W CON from 09/01/2024 US US TRANSVAGINAL from 09/01/2024 US US TRANSVAGINAL from 11/26/2024 FINDINGS: Transvaginal sonographic images of the pelvis were obtained. UTERUS: 7.1cm x 6.3cmx 3.1cm anteverted with a combined endometrial thickness of 5.7mm. A scar is seen. LEFT OVARY: 2.0cmx1.7 cmx1.0cm with a volume of 1.9ml. RIGHT OVARY: 1.7 cmx 1.9 cmx2.4cm with a volume of 4.1ml. There are at least 4 follicles in the right ovary. The largest measures 1.5 cm. Both ovaries are seen and appear normal. Doppler flow to both ovaries are seen. There is no fluid in the cul-de-sac. IMPRESSION: 1. Anteverted uterus normal in shape and size. The endometrium measures 5.7 mm. 2. Both ovaries are seen and appear normal. The right ovary has at least 4 follicles and the largest measures 1.5 cm. 3. No fluid in the cul-de-sac. Dictated by: Shin Phillips MD 04/24/2025 07:00 Shin Phillips MD in OV 04/24/2025 07:00
== END 2025-04-23 23:59 | disposition home or self-care (01) ==
LOC: RAD 08:45
PROVIDERS: PCP Family Medicine; Visit Provider Obstetrics & Gynecology
DX: N85.4 Malposition of uterus (principal); N83.01 Follicular cyst of right ovary; R10.2 Pelvic and perineal pain
CPT/HCPCS: 76830

== ENCOUNTER 2025-05-05 12:45 | Outpatient (CLI) | payer MEDICAID, SELFPAY ==
--- OUTSIDE RECORDS SUMMARY | 2023-12-14 06:00 | XMS_ITS ---
Author Organization [facility] Address [address] [place], [place] [phone] Care Team Providers Care Order Worker Name Role Phone Edwin Carrasquillo MD [phone] REASON FOR VISIT MM FOLLOW UP Encounters Encounter Location Date Provider Diagnosis [facility] [address] [place], [place] [phone] 12/14/2023 Edwin Carrasquillo Plan Of Treatment No Information Progress Notes * Aravind CHANDLERaDOB:1990 (35 yo F)Acc No.[id number]:12/14/2023 Patient: Juli DIAS Provider: Amber Carrasquillo MD :1990 A ge:33 Y S ex:Female Date:12/14/2023 Address:[facility] [address] , [id number] Subjective: * Chief Complaints: * 1 . MM FOLLOW UP. * Medical History: Objective: * Vitals: Assessment: Plan: * Treatment: * * Electronic signature of Philip Carrasquillo MD on 05/05/2025 at 12:47 PM EDT Sign off status: Pending * Provider: Amber Carrasquillo MD Date: 12/14/2023 Generated for Kizzy garcia/Arielle/eTfeliciasmitting on: 0 05/05/2025 12:47 PM EDT
--- OUTSIDE RECORDS SUMMARY | 2025-05-05 12:48 | XMS_ITS | Patient Health Record ---
Author Organization [facility] Address [address] [place] [address] Care Team Providers Care Gasoline Tractor Operator Name Role Phone [facility] Primary Care Pr ovider Unavailable Allergies No [...] Status W/U Status Risk Notes Problem Asthma (794682904) Asthma (J45.909) Active confirmed Problem Smoker (01250467) Smoker (F17.200) Active confirmed Plan Of Treatment No Information Insurance Providers Payer Name Payer Address Payer Phone Subscriber Number Group Number Insured Name Patient Relationship to Insured Coverage Start Date Coverage End Date [employer] [address] [place] [address] [id number] Juli Lui Self - patient is the insured 4 Medical (General) History Medical History History ICD Code Asthma J45.909
--- OUTSIDE RECORDS SUMMARY | 2025-05-05 12:48 | XMS_ITS | Clinical Summary ---
Author Organization [facility] Address [address] [place] [address] Care Team Providers Care Commercial Loan Processor Name Role Phone Leilani Henry Primary Care Provider Social History Tobacco Use Types Packs/Day Years [...] of Treatment Not on file Care Teams Commercial Loan Processor Relationship Specialty Start Date End Date Leilani Henry PA [address] [place] [address] PCP - General 12/31/20
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
--- OUTSIDE RECORDS SUMMARY | 2025-05-05 12:48 | XMS_ITS | Patient Health Record ---
Author Organization [facility] Address [address] [place] [phone] Reason For Referral No Information Problems Problem Type SNOMED Code ICD Code Onset Dates Problem Status W/U Status Risk Notes Problem Post-traumati c stress disorder (35815871) Post-traumatic stress disorder, unspecified (F43.10) Active confirmed Plan Of Treatment No Information
--- NOTE | 2025-05-05 13:00 | MM_ITS ---
PROCEDURE INFORMATION: Exam: Bilateral Diagnostic Breast Tomosynthesis Exam date and time: 05/05/2025 1:03 PM Age: 35 years old Clinical indication: Left breast pain and right breast palpable lump. TECHNIQUE: Imaging protocol: Bilateral Diagnostic tomosynthesis and 2D mammography including computer-aided detection (CAD) when performed. Unilateral or bilateral exam. COMPARISON: US BREAST LT COMPLETE 07/28/2024 1:13 PM FINDINGS: MAMMOGRAPHY: Breast composition: There are scattered areas of fibroglandular density. Breast mammogram findings: A skin marker is placed at the site of palpable concern in the right breast upper outer quadrant. There is no underlying mammographic abnormality. In the left central posterior breast, approximate 12:00 /retroareolar axis, there is a focal asymmetry that measures 0.9 cm, best seen on the left craniocaudal projection. There are no suspicious calcifications, areas of distortion, or other mammogram abnormality. IMPRESSION: 1. Targeted ultrasound of the right breast in the area of the lump is recommended. No mammographic finding is seen. 2. Patient to be recalled for spot compression views of the left breast in the CC and MLO projections, a full 90 degree lateral view, and left breast ultrasound for further evaluation of a left breast focal asymmetry. Also, targeted ultrasound of the area of left breast pain is recommended. ASSESSMENT: BI-RADS Category 0: Incomplete- Need Additional Imaging Evaluation.
== END 2025-05-05 23:59 | disposition home or self-care (01) ==
LOC: RAD 12:46
PROVIDERS: PCP Family Medicine; Visit Provider Obstetrics & Gynecology
DX: N63.11 Unspecified lump in the right breast, upper outer quadrant (principal); R92.323 Mammographic fibroglandular density, bilateral breasts; N64.89 Other specified disorders of breast
CPT/HCPCS: 77062; 77066; G0279

== ENCOUNTER 2025-05-18 10:21 | Outpatient (CLI) | payer MEDICAID, SELFPAY ==
--- OUTSIDE RECORDS SUMMARY | 2023-12-14 06:00 | XMS_ITS ---
Author Organization [facility] Address [address] [place], [place] [address] Care Team Providers Care Mixer Operator Helper Hot Metal Name Role Phone Edwin Carrasquillo MD [phone] REASON FOR VISIT MM FOLLOW UP Encounters Encounter Location Date Provider Diagnosis [facility] [address] [place], [place] [phone] 12/14/2023 Edwin Carrasquillo Plan Of Treatment No Information Progress Notes * Aravind CHANDLERaDOB:1990 (35 yo F)Acc No.[id number]:12/14/2023 Patient: Juli DIAS Provider: Amber Carrasquillo MD :1990 A ge:33 Y S ex:Female Date:12/14/2023 Address:[facility] [address] , [facility] Subjective: * Chief Complaints: * 1 . MM FOLLOW UP. * Medical History: Objective: * Vitals: Assessment: Plan: * Treatment: * * Electronic signature of Philip Carrasquillo MD on 05/18/2025 at 10:23 AM EDT Sign off status: Pending * Provider: Amber Carrasquillo MD Date: 0 12/14/2023 Generated for Kizzy garcia/Arielle/eTfeliciasmitting on: 0 05/18/2025 10:23 AM EDT
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
--- OUTSIDE RECORDS SUMMARY | 2025-05-18 10:24 | XMS_ITS | Clinical Summary ---
Author Organization [facility] Address [address] [place] [address] Care Team Providers Care Pediatric Neurologist Name Role Phone Matt Morgan MD Primary Care Provider [phone] Social History Tobacco Use Types Packs/Day Years Used Date Smoking Tobacco: Never Assessed Comments Unknown Sex and Gender Information Value Date Recorded Sex Assigned at Not on file Legal Sex Female 8:54 AM EDT Gender Identity Not on file Sexual Orientation Not on file Plan of Treatment Upcoming Encounters Date Type Department Care Team (Late st Contact Info) Description 09/21/2025 9:30 AM EST Office Visit [facility] [address] [facility] [address] [place] [address] Matias Mooney MD [address] [facility] [address] [place] [address] Health Maintenance Due Date Last Done Comments ANNUAL PHYSICAL 1989 Annual Gynecologic Pelvic an d Breast Exam 1989 HEPATITIS C SCREENING 1989 TDAP/TD VACCINES (1 - Tdap) 2008 INFLUENZA VACCINE 03/20/2025 Pneumococcal Vaccine 0-49 Aged Out No longer eligible based on patient's age to complete this topic Procedures Procedure Name Priority Date/Time Associated Diagnosis Comments SCANNED - LABS 03/30/2025 from Last 3 Months Results * LABS SCANNED (03/30/2025) [facility] New Onbase LAB BLOOD ORDERABLES Final Re sult from Last 3 Months Insurance [facility] MEDICAID Care Teams Pediatric Neurologist Relationship Specialty Start Date End Date Matt Morgan MD [facility] [address] [address] PCP - General Family Medicine 05/08/25
--- OUTSIDE RECORDS SUMMARY | 2025-05-18 10:24 | XMS_ITS | Clinical Summary ---
Author Organization [facility] Address [address] [place] [address] Care Team Providers Care Veterinary Parasitologist Name Role Phone Leilani Henry Primary Care Provider [phone] Social History Tobacco Use Types Packs/Day Years [...] of Treatment Not on file Care Teams Veterinary Parasitologist Relationship Specialty Start Date End Date Leilani Henry PA [address] [place] [address] PCP - General 12/31/20
--- OUTSIDE RECORDS SUMMARY | 2025-05-18 10:24 | XMS_ITS | Patient Health Record ---
Author Organization [facility] Address [address] [facility] [address] [place] [address] Care Team Providers Care Curtain Mender Name Role Phone [facility] Primary Care Pr ovider Unavailable Allergies No [...] Status W/U Status Risk Notes Problem Asthma (840068856) Asthma (J45.909) Active confirmed Problem Smoker (48774204) Smoker (F17.200) Active confirmed Plan Of Treatment No Information Insurance Providers Payer Name Payer Address Payer Phone Subscriber Number Group Number Insured Name Patient Relationship to Insured Coverage Start Date Coverage End Date [employer] [address] [facility] [address] [id number] Juli Lui Self - patient is the insured 4 Medical (General) History Medical History History ICD Code Asthma J45.909
--- OUTSIDE RECORDS SUMMARY | 2025-05-18 10:24 | XMS_ITS | Patient Health Record ---
Author Organization [facility] Address [address] [place] [phone] Reason For Referral No Information Problems Problem Type SNOMED Code ICD Code Onset Dates Problem Status W/U Status Risk Notes Problem Post-traumati c stress disorder (33097971) Post-traumatic stress disorder, unspecified (F43.10) Active confirmed Plan Of Treatment No Information
--- NOTE | 2025-05-18 10:30 | US_ITS ---
PROCEDURE INFORMATION: Exam: US Left Breast, Complete US Right Breast, Complete Exam date and time: 05/18/2025 10:31 AM Age: 35 years old Clinical indication: History of left breast pain and right breast palpable lump reported on 05/05/2025 mammogram. 05/05/2025 mammogram recommends additional diagnostic views of left central posterior 12 o'clock 0.9 cm focal asymmetry TECHNIQUE: Imaging protocol: Complete ultrasound of all four quadrants of the left breast and the retroareolar regions, including ultrasound of the axilla when performed. Complete ultrasound of all four quadrants of the right breast and the retroareolar regions, including ultrasound of the axilla when performed. COMPARISON: 05/05/2025, 07/28/24 FINDINGS: ULTRASOUND: Breast ultrasound findings: Bilateral 4 quadrants and retroareolar breast ultrasound and bilateral axilla ultrasound Incidentally discovered benign-appearing circumscribed isoechoic 0.5 cm mass is detected along the 2 o'clock axis left breast 2 cm from the nipple. This has generally benign features highly suggestive of a benign fibroadenoma Otherwise, only normal glandular structures are present in the regions assessed No suspicious solid or cystic mass is present. No architectural distortion or shadowing is present. No axillary adenopathy is present. IMPRESSION: Incidentally discovered suspected 0.5 cm fibroadenoma along the left 2 o'clock axis anteriorly should be assessed in 6 months with targeted ultrasound to ensure stability Otherwise no suspicious findings are present within either breast to suggest malignancy ASSESSMENT: BI-RADS category 3: Probably benign
== END 2025-05-18 23:59 | disposition home or self-care (01) ==
LOC: RAD 10:22
PROVIDERS: PCP Family Medicine; Visit Provider Obstetrics & Gynecology
DX: N63.10 Unspecified lump in the right breast, unspecified quadrant (principal); N63.21 Unspecified lump in the left breast, upper outer quadrant
CPT/HCPCS: 76641

== ENCOUNTER 2025-05-27 10:39 | Outpatient (RCR) | payer MEDICAID, SELFPAY ==
--- NOTE | 2025-05-27 13:56 | HMH.PTOPEV ---
PT Evaluation Rehab PT Outpatient Evaluation Start: 05/27/25 13:40 Freq: Status: Active Protocol: Document 05/27/25 13:40 PHORNE (Rec: 05/27/25 13:55 PHORNE [id number]) E-signed By Darius Oswald, PT Outpatient Therapy Subjective History Subjective History This is the initial PT eval for Juli Lui, 35 yowf who presents with c/o intermittent dizziness and vertigo like symptoms that have been present for more than a year overall. She reports symptoms occur mostly when laying down, but sometimes when sitting for prolonged periods of time. Her symptoms also, last for a few seconds at a time. She has no hx of nausea, no problems with hearing, but does have intermittent tinnitus in the L ear. She reports increased chronic neck pain x ~6 mos for which she is treated by a chiropractor. She also reports increased sinus pressure with seasonal allergies. She has been tested extensively with brain MRI, CT, neuro evaluations for migraine. She has PMH of anxiety as well. Chief Complaint Other Vertigo Eval Oculomotor Examination Smooth Pursuits: Normal Saccades: Normal Gaze-Evoked Absent Nystagmus: Vergence: Normal Vestibular-Ocular Reflex (VOR) VOR Horizontal: Symptomatic VOR Vertical: Symptomatic Head Thrust Test Negative Right: Head Thrust Test Negative Left: Comment: Increased dizziness noted with VOR testing, worse with grid background. Motion Sensitivity Testing Symptoms Provoked By Turning head quickly : Positional Testing Lauren-Hallpike Right: Negative Lauren-Hallpike Left: Negative Roll Test Right: Negative Roll Test Left: Negative Comment: No nystagmus noted with any positions. Pt did c/o increased dizziness with certain positions which was relieved with manual cervical traction and never associated with nystagmus. Balance Testing Romberg Eyes Opened Normal (EO): Romberg Eyes Closed Normal (EC): Tandem Walk: Normal Gait Assessment Assistive Device: None Gait Quality Normal Outpatient Therapy Assessment Impairments Problems/ Impaired Self Care/Self Management Impairmments Prognosis Rehab Potential Good Comment Skilled therapy indicated for instruction in adaptation and habituation exercises for vestibular symptoms. Pt instructed in these exercises for HEP. Also recommended pt seek treatment for mil cervicogenic dizziness. Otherwise no further skilled treatment needed at this time. Clinical Impression Consistent with Yes Diagnosis Outpatient Therapy Plan of Care Treatment Plan May Include Therapeutic Exercise Yes Including Home Exercise Program Eval/Re-Eval Yes Frequency Times per week 0 Duration Number of Weeks 0 Addendums This patient is a No candidate for social or vocational rehab ? Patient/Guardian Yes verbally acknowledges understanding of treatment program and consents to further treatment? Patient/Guardian Yes verbally acknowledges understanding of diagnosis, prognosis and goals for treatment? Eval Complexity PT Charges 94563 - High Complexity Shoulder/Elbow Eval Shoulder Objective Measurements Elbow Objective Measurements PHYSICIAN CERTIFICATION: I certify the specified therapy services for Juli Lui are required, authorized, and reviewed every 30 days.
== END 2025-05-27 23:59 | disposition home or self-care (01) ==
LOC: PT 10:39
PROVIDERS: Visit Provider Physician Assistant
DX: R42 Dizziness and giddiness (principal)
CPT/HCPCS: 97163

== ENCOUNTER 2025-06-01 13:55 | Outpatient (CLI) | payer MEDICAID, SELFPAY ==
--- NOTE | 2025-06-01 13:57 | XR_ITS ---
FINAL REPORT CLINICAL HISTORY: right knee pain FINDINGS: AP, lateral and oblique views of the right knee were obtained. There is no prior exam for comparison. There is no acute osseous abnormality of the right knee. There is mild lateral patellar subluxation. The joint space is preserved. The soft tissues are normal. There is no joint effusion. IMPRESSION: Mild lateral patellar subluxation. Reviewed, Interpreted and Dictated by Lois Mcgregor MD Transcribed by Kimberly Bray Authenticated and [facility]
== END 2025-06-01 23:59 | disposition home or self-care (01) ==
LOC: RAD 13:57
PROVIDERS: PCP Family Medicine; Visit Provider Physician Assistant Surgical
DX: S83.011A Lateral subluxation of right patella, initial encounter (principal); X58.XXXA Exposure to other specified factors, initial encounter
CPT/HCPCS: 73562

== ENCOUNTER 2025-06-04 07:24 | Outpatient (CLI) | payer MEDICAID, SELFPAY ==
--- OUTSIDE RECORDS SUMMARY | 2023-12-14 06:00 | XMS_ITS ---
Author Organization [facility] Address [address] [place], [place] [address] Care Team Providers Care Cinetechnician Name Role Phone Edwin Carrasquillo MD [phone] REASON FOR VISIT MM FOLLOW UP Encounters Encounter Location Date Provider Diagnosis [facility] [address] [place], [place] [id number] 12/14/2023 Edwin Carrasquillo Plan Of Treatment No Information Progress Notes * Aravind CHANDLERaDOB:1990 (35 yo F)Acc No.[id number]:12/14/2023 Patient: Juli DIAS Provider: Amber Carrasquillo MD :1990 A ge:33 Y S ex:Female Date:12/14/2023 Address:[facility] [address] , [facility] Subjective: * Chief Complaints: * 1 . MM FOLLOW UP. * Medical History: Objective: * Vitals: Assessment: Plan: * Treatment: * * Electronic signature of Philip Carrasquillo MD on 06/04/2025 at 07:26 AM EDT Sign off status: Pending * Provider: Amber Carrasquillo MD Date: 0 12/14/2023 Generated for Kizzy garcia/Arielle/eTfeliciasmitting on: 1 07:26 AM EDT
--- OUTSIDE RECORDS SUMMARY | 2025-06-04 07:26 | XMS_ITS | Clinical Summary ---
Author Organization [facility] Address [address] [place] [address] Care Team Providers Care Maintenance Technician 3Rd Shift Name Role Phone Leilani Henry Primary Care Provider [phone] Social History Tobacco Use Types Packs/Day Years [...] of Treatment Not on file Care Teams Maintenance Technician 3Rd Shift Relationship Specialty Start Date End Date Leilani Henry PA [address] [place] [address] PCP - General 12/31/20
--- OUTSIDE RECORDS SUMMARY | 2025-06-04 07:26 | XMS_ITS | Clinical Summary ---
Author Organization [facility] Address [address] [place] [address] Care Team Providers Care Nurse General Duty Name Role Phone Matt Morgan MD Primary Care Provider [phone] Social History Tobacco Use Types Packs/Day Years [...] Description 09/21/2025 9:30 AM EST Office Visit [facility] NEUROLOGY [address] [facility] [address] [place] [address] Matias Mooney MD [address] [facility] [address] [place] [address] Health Maintenance Due Date Last [...] 3 Months Results * LABS SCANNED (03/30/2025) [facility] New Onbase LAB BLOOD ORDERABLES Final Re sult from Last 3 Months Insurance [facility] MEDICAID Care Teams Nurse General Duty Relationship Specialty Start Date End Date Matt Morgan MD [facility] [address] [address] PCP - General Family Medicine 05/08/25
--- OUTSIDE RECORDS SUMMARY | 2025-06-04 07:26 | XMS_ITS | Patient Health Record ---
Author Organization [facility] Address [address] [place] [phone] Reason For Referral No Information Problems Problem Type SNOMED Code ICD Code Onset Dates Problem Status W/U Status Risk Notes Problem Post-traumati c stress disorder (09190893) Post-traumatic stress disorder, unspecified (F43.10) Active confirmed Plan Of Treatment No Information
--- OUTSIDE RECORDS SUMMARY | 2025-06-04 07:27 | XMS_ITS | Patient Health Record ---
Author Organization [facility] Address [address] [facility] [address] [place] [address] Care Team Providers Care Printer Helper Name Role Phone [facility] Primary Care Pr ovider Unavailable Allergies [...] Status W/U Status Risk Notes Problem Asthma (085108071) Asthma (J45.909) Active confirmed Problem Smoker (69621058) Smoker (F17.200) Active confirmed Plan Of Treatment No Information Insurance Providers Payer Name Payer Address Payer Phone Subscriber Number Group Number Insured Name Patient Relationship to Insured Coverage Start Date Coverage End Date [employer] [address] [place] [address] [id number] Juli Lui Self - patient is the insured 4 Medical (General) History Medical History History ICD Code Asthma J45.909
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
--- NOTE | 2025-06-04 07:30 | US_ITS ---
FINAL REPORT TECHNIQUE: Sonographic images of the abdomen were obtained in all four quadrants. CLINICAL HISTORY: L side abd pain FINDINGS: LIVER: Homogeneous. No focal hepatic lesion or intrahepatic biliary dilatation. GALLBLADDER: Gallbladder is absent. The common duct measures 3 mm. This is within normal limits for age. PANCREAS: Unremarkable. RIGHT KIDNEY: 9.1 cm. No hydronephrosis, mass or stone. LEFT KIDNEY: 10.2 cm. No hydronephrosis, mass or stone. SPLEEN: 10.2 cm. No focal splenic lesion. AORTA/IVC: No abdominal aortic aneurysm. Visualized IVC within normal limits. OTHER: No ascites. IMPRESSION: Status postcholecystectomy. Reviewed, Interpreted and Dictated by Lois Mcgregor MD Transcribed by Geri Mason Authenticated and [facility]
== END 2025-06-04 23:59 | disposition home or self-care (01) ==
LOC: RAD 07:24
PROVIDERS: PCP Family Medicine; Visit Provider Nurse Practitioner Family
DX: R10.9 Unspecified abdominal pain (principal); Z90.49 Acquired absence of other specified parts of digestive tract
CPT/HCPCS: 76700

== ENCOUNTER 2025-06-11 18:17 | Emergency (ER) | payer MEDICAID, SELFPAY ==
[2025-06-11 18:24] VITALS: BP 142/103; PULSE 80; RESP 17; TEMP 36.8; O2SAT 100; BMI 26.0
--- NOTE | 2025-06-11 18:24 | ECG_ITS ---
APPROVED REPORT Exam: Resting ECG HR:56 bpm ECG Measurements Heart Rate 56 AXES AK 136 P 61 QRSd 89 QRS 48 QT 409 T 59 QTc 402 Conclusion SINUS BRADYCARDIA WITH OCCASIONAL SUPRAVENTRICULAR PREMATURE COMPLEXES BORDERLINE ECG UNCONFIRMED REPORT Electronically signed by : NITHYA DURÁN, 06/12/2025 02:05:22
--- NOTE | 2025-06-11 18:25 | ED_ITS ---
<Statement entered by Louisa Iverson DO - 06/13/25 00:30> I was consulted by the YOLETTE, and we discussed the complexity of problems being addressed. I approve the treatment and management plan for this patient's care in the emergency department, thus performing a substantial portion of the medical decision making. Louisa Iverson DO Discharge Plan Disposition Patient Disposition: Home, Self-Care Condition: Good Prescriptions Prescriptions: No Action azelastine 137 mcg (0.1 %) spray,non-aerosol 2 spray intranasal BID Qty: 30 2RF Rx Instructions: administer into each nostril albuterol sulfate [Ventolin HFA] 90 mcg/actuation HFA aerosol inhaler 1 puff inhalation QID PRN (Reason: soa) Qty: 8.5 4RF cyclobenzaprine 10 mg tablet 10 mg PO HS oxcarbazepine [Trileptal] 150 mg tablet 150 mg PO BID Qty: 60 2RF albuterol sulfate 2.5 mg /3 mL (0.083 %) solution for nebulization 2.5 mg inhalation Q6H Qty: 75 0RF hydroxyzine pamoate [Vistaril] 25 mg capsule 25 mg PO TID PRN (Reason: anxiety) 3 Days Qty: 10 0RF meloxicam 7.5 mg tablet 7.5 mg PO DAILY Qty: 30 2RF ondansetron 4 mg tablet,disintegrating 4 mg PO Q6H PRN (Reason: nausea and vomiting) Qty: 10 0RF Referrals Follow up/Referrals: Matt Morgan MD [Primary Care Provider, Family Practice] - See instructions Raul Melo MD [Staff Physician, Cardiology] - See instructions Yuriy Zaragoza MD [Referring, Medical] - See instructions Activity Restrictions/Add. Instructions Additional Instructions/Restrictions: Please follow-up with your PCP, mobile solutions architect and vascular surgery team in the upcoming days/weeks. Please return to the emergency department any worsening signs or symptoms. Please take all your at home medication as prescribed. Clinical Impressions Clinical Impression: Anxiety, Atypical chest pain Instructions Patient Instructions: DI for Anxiety in Adults, DI for Atypical Chest Pain Print Language Print Language: [place] Discharge ED Provider: Louisa Iverson General Adult HPI General Chief complaint: Chest Pain Stated complaint: chest tightness, heart palpitations Time Seen by Provider: 06/11/25 18:24 Mode of Arrival: Ambulatory Source of Information: Patient Limitations: No Limitations History of Present Illness HPI narrative: 35-year-old female presents to the emergency department with chest fullness/tightness and palpitations, that has been ongoing since around send she got up this morning , she endorses some shortness of breath with this, denies any fever chills cough congestion, some radiation of the chest pain into her throat , denies any reflux symptomatology, denies any congestion, denies any cough, denies any nausea vomiting abdominal pain no constipation no diarrhea no melena, no hematochezia no hematemesis or hemoptysis, patient denies any urinary type symptomatology, patient is a former smoker, denies any alcohol or drug use, other past medical history is consistent with MATTHEW/MDD, migraines, BPPV, patient tells me that she has a lot of anxiety about my health thus prompted emergency department visit. Initial triage vitals are unremarkable. Please note that above description of symptoms, in this electronic medical record under categorization of recalled from ER triage doctor by RN are reflective of an initial nursing assessment, however, is not reflective of my full history and physical exam that was personally taken and clarified. Consequentially, this preceding description of symptoms, which may include the patient's categorized chief complaint in the EMR, do not reflect my personal clinical impression, and the ultimate description of history of present illness and patient stated complaints should be deferred to this section of the note. Unless stated otherwise or congruent with this section of the note, additional signs, symptoms, or incongruence should be interpreted as inaccurate with my clinical impression. Onset (ago): hour(s) Related Data Home Medications ?Medication ?Instructions ?Recorded ?Confirmed cyclobenzaprine 10 mg tablet 10 mg PO HS 03/30/2505/20 Previous Rx's ?Medication ?Instructions ?Recorded albuterol sulfate 90 mcg/actuation 1 puff inhalation Q ID PRN soa #8.5 06/27/24 aerosol inhaler (Ventolin HFA) grams azelastine 137 mcg (0.1 %) nasal 2 spray intranasal BI D #30 mL 06/27/24 spray albuterol sulfate 2.5 mg/3 mL 2.5 mg (3 mL) inhalation Q6H #75 mL 12/29/24 (0.083 %) solution for nebulization hydroxyzine pamoate 25 mg capsule 25 mg PO TID PRN anx iety 3 days 02/05/25 (Vistaril) #10 caps ondansetron 4 mg disintegrating 4 mg PO Q6H PRN nausea and 03/21/25 tablet vomiting #10 tabs oxcarbazepine 150 mg tablet 150 mg PO BID #60 tabs (Trileptal) meloxicam 7.5 mg tablet 7.5 mg PO DAILY #30 tabs Allergies Allergy/AdvReac Type Severity Reaction Status Date / Time No Known Allergies Allergy Verified 06/01/25 14:41 [facility] Disclaimer: The information contained in this section may have been updated after the patient was seen, as this information can be updated by other users. Medical History Lump of right breast Abnormal mammogram of right breast Breast pain, left Abnormal mammogram of left breast Vertigo Vitamin B deficiency Episodic migraine Palpitation History of anemia History of gastroesophageal reflux (GERD) History of asthma History of dizziness Tobacco use Episodic lightheadedness BPPV (benign paroxysmal positional vertigo) Normal hearing test of both ears Tinnitus aurium Impacted cerumen, right ear Tinnitus intermittent Chronic headaches Depression Anxiety Tobacco dependence syndrome Dyspnea Sinusitis Vaginal discharge Asthma Surgical History History of tubal ligation History of section History of cholecystectomy Family History Grandmother Cancer breast cancer in her 90's Other Coronary artery disease Diabetes Family history of hypothyroidism Family history of myocardial infarction Hypertension Thyroid disorder Social History Smoking Status: Former smoker second hand exposure: Yes alcohol intake: never substance use type: denies use current occupational status: other Travel in the last 8 weeks?: None household members: spouse, family and children housing: house Have you lived/traveled outside US in past 30 days?: No Contact w/someone who lives/traveled outside US past 30 days?: No Exposure to someone with infectious disease in past 14 days?: No Do you have a fever (greater than 100.4 F or 38 C)?: No Have you tested positive for COVID-19?: No Exposed to someone with COVID-19 in past 14 days?: No Do you have a sore throat?: No Do you have a cough?: No Do you have any weakness?: No Do you have any diarrhea?: No Are you experiencing any unusual bleeding?: No Do you have any muscle aches/pain?: No Do you have any abdominal pain?: No Are you experiencing loss of taste or smell?: No Other Medical History Have you received the Flu Vaccine for this season: No Have you received the Pneumonia Vaccine: No ROS Obtained: Yes All systems reviewed & no additional complaints except as documented Physical Exam General General appearance: alert and in no apparent distress Head Head exam: atraumatic and normocephalic Eye Eye exam: Present normal appearance, PERRL and EOMI Neck Neck exam: Present full ROM; Absent meningismus Chest Chest inspection: Present normal inspection Respiratory Respiratory exam: Absent respiratory distress, wheezes, stridor, accessory muscle use or prolonged expiratory phase Cardiovascular Cardiovascular exam: Present normal rhythm and other (Pulses equal and symmetric in bilateral upper and lower extremities) Abdominal Exam Abdominal exam: Absent distention, tenderness, guarding or rebound Extremities Exam Extremities exam: Absent edema Neurological Exam Neurological exam: Present alert Psychiatric Psychiatric exam: Present normal affect Skin Skin exam: Present warm and dry Medical Decision Making Medical Records Medical records reviewed: Yes I reviewed the patient's medical records. Screening: Per USPSTF and CDC recommendations, given the prevalence of disease in our region, it is our hospital?s policy to screen for HIV and viral Hepatitis for all patients aged 18 and over and those with ongoing risk factors. David Inquiry Pt receiving controlled substance: No David was queried for this patient: No Vital Signs: 06/11/25 18:24 06/11/25 19:38 06/11/25 20:30 Temperature 98.3 F Temperature Source Oral Pulse Rate 62 74 Pulse Rate [Right Radial] 80 Respiratory Rate 17 12 15 Blood Pressure 123/80 136/88 Blood Pressure [Right Arm] 142/103 H Blood Pressure Mean [Right Arm] 116 Blood Pressure Source [Right Arm] Automatic Cuff Blood Pressure Position [Right Arm] Supine 02 Sat by Pulse Oximetry 100 100 99 Oxygen Delivery Method Room Air Room Air Lab Data Lab results reviewed: Yes I reviewed the patient's lab results. Lab Results 06/11/25 18:25: WBC 5.3, RBC 4.49, Hgb 13.6, Hct 40.8, MCV 90.9, MCH 30.3, MCHC 33.3, RDW 11.9, Plt Count 185, MPV 10.9 H, Neut % (Auto) 61.6, Lymph % (Auto) 28.5, [place] % (Auto) 7.0, Eos % (Auto) 2.1, Baso % (Auto) 0.6, Neut # (Auto) 3.2, Lymph # (Auto) 1.5, [place] # (Auto) 0.4, Eos # (Auto) 0.1, Baso # (Auto) 0.0, PT 10.8, INR 0.97, D-Dimer 0.56 H, Sodium 136, Potassium 3.5, Chloride 103, Carbon Dioxide 27, Anion Gap 9.5, BUN 7, Creatinine 0.70, Estimated Creat Clear 110, Estimated GFR 95, Est GFR ( Amer) 115, Glucose 108 H, Calcium 8.3 L, Magnesium 1.9, Total Bilirubin 0.4, AST 22, ALT 20, Alkaline Phosphatase 60, Troponin I < 0.01, NT-Pro-B Natriuret Pep 156 H, Total Protein 6.8, Albumin 4.0, Globulin 2.8, Albumin/Globulin Ratio 1.4, Lipase 61, Serum HCG, Qual Negative, HCV Ab RENATA w/Rflx PCR Qn Negative, HIV Ag/Ab Combo Qual Negative 06/11/25 18:25 06/11/25 18:25 Orders (Tests/Meds): ED MEDICATIONS Generic Name Dose Route Start Last Admin Trade Name Freq PRN Reason Stop Dose Admin Sodium Chloride 10 ml 06/11/25 20:31 06/11/25 20:32 Sodium Chloride 0.9% 10ml Syr (Rad Only) IV 07/11/25 20:30 10 ml NEEDED PRN Administration Maintain IV Site Discontinued Medications Generic Name Dose Route Start Last Admin Trade Name Freq PRN Reason Stop Dose Admin Aspirin 324 mg 06/11/25 18:31 06/11/25 19:00 Aspirin 81mg Chewable Tablet PO 06/11/25 18:32 324 mg ONCE ONE Administration Iopamidol 70 ml 06/11/25 20:31 06/11/25 20:32 Iopamidol-370 (76%);100ml Bottle IV 06/11/25 20:32 70 ml ONCE ONE Administration Sodium Chloride 50 ml 06/11/25 20:31 06/11/25 20:32 0.9 % Sodium Chloride 50 Ml Vial IV 06/11/25 20:32 50 ml ONCE ONE Administration ORDERS Category Date Time Status CT angio chest PE protocol Stat Cat Scan 06/11/25 19:35 Completed XR chest portable Stat Exams 06/11/25 18:31 Completed Complete Blood Count Auto Diff Stat Lab 06/11/25 18:25 Completed Comprehensive Metabolic Panel Stat Lab 06/11/25 18:25 Completed D-Dimer Stat Lab 06/11/25 18:25 Completed HCG Qualitative, Serum Stat Lab 06/11/25 18:25 Completed HIV Combo Stat Lab 06/11/25 18:25 Completed Hepatitis C Ab Qual. W/ RFX Stat Lab 06/11/25 18:25 Completed Lipase Stat Lab 06/11/25 18:25 Completed Magnesium Stat Lab 06/11/25 18:25 Completed NT Pro Brain Natriuretic Pep. Stat Lab 06/11/25 18:25 Completed PT INR [Prothrombin Time INR] Stat Lab 06/11/25 18:25 Completed Troponin I Q3H Lab 06/11/25 21:45 Ordered Troponin I Q3H Lab 06/12/25 00:45 Ordered Troponin I Stat Lab 06/11/25 18:25 Completed Medical Decision Narrative: 35-year-old female presents emergency department with chest tightness chest fullness and palpitations started this morning, differential diagnose include but not limited to PE, ACS, cardiac arrhythmia, electrolyte disturbance, anxiety reaction, panic attack, costochondritis, GERD, among others. I discussed this patient's case with attending Dr. Iverson Will obtain basic amatory studies, chest x-ray, D-dimer, hCG qualitative, lipase level, magnesium level, proBNP PT/INR, troponin, EKG will give 324 mg p.o. aspirin for pain. CBC unremarkable Coags within normal limit CMP unremarkable hCG qualitative negative Troponin within normal limits at less than 0.01, proBNP is mildly elevated at 156 D-dimer is minimally elevated at 0.56, with elevated proBNP, and clinical symptoms will obtain CTA chest with and without contrast to rule out PE. I reviewed the patient's chest x-ray along the corresponding radiologic report, no acute findings. I reviewed the patient's CTA chest with without contrast along with the corresponding radiologic report, no CT evidence for pulmonary embolus, ectasia of the supravalvular ascending aorta maximal transverse dimension 3.4 cm no acute infiltrates. I discussed results with the patient the bedside patient is currently chest pain-free, patient remained hemodynamically stable without her time in the emergency department. Please follow-up with cardiology and vascular surgery team in the upcoming days/weeks. Patient voiced understanding and agreed with current treatment plan/discharge plan, most likely costochondritis/noncardiac chest pain, patient has quite severe anxiety and was quite tearful when I was discussing the results with her. Strict return precautions given Critical Care Critical Care Time Critical Care Time: No
--- OUTSIDE RECORDS SUMMARY | 2025-06-11 18:26 | XMS_ITS | Clinical Summary ---
Author Organization [facility] yste Address [address] [place] [address] Care Team Providers Care Travel Accommodations Rater Name Role Phone Matt Morgan MD Primary Care Provider [phone] Social History Tobacco Use Types Packs/Day Years [...] Description 09/21/2025 9:30 AM EST Office Visit [facility]Y [address] [facility] [address] [place] [address] Matias Mooney MD [address] [facility] [address] [place] [address] Health Maintenance Due Date Last [...] 3 Months Results * LABS SCANNED (03/30/2025) [facility] New Onbase LAB BLOOD ORDERABLES Final Re sult from Last 3 Months Insurance [facility] MEDICAID Care Teams Travel Accommodations Rater Relationship Specialty Start Date End Date Matt Morgan MD [facility] [address] [address] PCP - General Family Medicine 05/08/25
--- OUTSIDE RECORDS SUMMARY | 2025-06-11 18:26 | XMS_ITS | Clinical Summary ---
Author Organization Healthcare Address [address] [place] [address] Care Team Providers Care Java Programmer Name Role Phone Leilani Henry Primary Care [...] of Treatment Not on file Care Teams Java Programmer Relationship Specialty Start Date End Date Leilani Henry PA [address] [place] [address] PCP - General 12/31/20
--- NOTE | 2025-06-11 18:31 | XR_ITS ---
PROCEDURE INFORMATION: Exam: XR Chest Exam date and time: 06/11/2025 6:57 PM Age: 35 years old Clinical indication: Pain; Cough and shortness of breath; Chest pressure; Additional info: Soa/cp TECHNIQUE: Imaging protocol: Radiologic exam of the chest. Views: 1 view. COMPARISON: CR XR CHEST 2V 12/27/2020 5:05 AM FINDINGS: Lungs: Unremarkable. No consolidation. Pleural spaces: Unremarkable. No pleural effusion. No pneumothorax. Heart/Mediastinum: Unremarkable. No cardiomegaly. Bones/joints: Unremarkable. IMPRESSION: No acute findings.
[2025-06-11 18:39] LABS: Hematocrit 40.8 % (37.0-47.0); Hemoglobin 13.6 g/dL (12.2-16.2); Immature Granulocytes % 0.2 %; Mean Corpuscular HGB Conc 33.3 g/dL (31.8-35.4); Mean Corpuscular Hemoglobin 30.3 pg (27.0-31.2); Mean Corpuscular Volume 90.9 fl (81-99); Nucleated Red Blood Cells % 0 %; Platelet Count 185 K/mm3 (142-424); Red Blood Count 4.49 M/mm3 (4.20-5.40); Red Cell Distribution Width-SD 39.6 fL; White Blood Count 5.3 K/mm3 (4.8-10.8)
[2025-06-11 18:41] LABS: Albumin Level 4.0 g/dl (3.5-5.0); Chloride 103 mmol/L (98-107); Potassium 3.5 mmoL/L (3.5-5.1); Sodium 136 mmol/L (136-145)
[2025-06-11 18:44] LABS: Alanine Aminotransferase 20 U/L (12-78); Albumin/Globulin Ratio 1.4 (1.1-1.8); Alkaline Phosphatase 60 U/L (38-126); Anion Gap 9.5 mEq/L (5-15); Aspartate Amino Transferase 22 U/L (14-36); Bilirubin,Total 0.4 mg/dl (0.2-1.3); Blood Urea Nitrogen 7 mg/dl (7-17); Calcium 8.3 mg/dl (8.4-10.2); Carbon Dioxide 27 mmol/L (22.0-30.0); Creatinine Clearance Estimated 110 mL/min (50-200); Creatinine,Serum 0.70 mg/dl (0.52-1.04); Estimated Glomerular Filt Rate 95 ml/min (>60); GFR (African American) 115 ML/MIN (>60); Globulin 2.8 g/dL (1.3-3.2); Glucose 108 mg/dl (74-100); Lipase 61 U/L (23-300); Magnesium 1.9 mg/dl (1.6-2.3); Total Protein,Serum 6.8 g/dl (6.3-8.2)
[2025-06-11 18:45] LABS: INR 0.97 (0.9-1.1); Prothrombin Time 10.8 seconds (10.1-12.5)
[2025-06-11 18:52] LABS: HCG Qualitative, Serum Negative (Negative)
[2025-06-11 18:53] LABS: NT Pro Brain Natriuretic Pep. 156 pg/mL (0-125)
[2025-06-11] MEDS: ASPIRIN 81MG CHEWABLE TABLET 324 MG PO (19:00)
[2025-06-11 19:03] LABS: Troponin I < 0.01 ng/ml (0.00-0.034)
[2025-06-11 19:31] LABS: D-Dimer 0.56 ug/mL (0.0-0.5)
--- NOTE | 2025-06-11 19:35 | CT_ITS ---
PROCEDURE INFORMATION: Exam: CTA Chest With Contrast Exam date and time: 06/11/2025 8:28 PM Age: 35 years old Clinical indication: Shortness of breath; Additional info: Soa/cp TECHNIQUE: Imaging protocol: Computed tomographic angiography of the chest with contrast. Exam focused on the arteries. 3D rendering (Not supervised by radiologist): MIP and/or 3D reconstructed images were created by the technologist. Radiation optimization: All CT scans at this facility use at least one of these dose optimization techniques: automated exposure control; mA and/or kV adjustment per patient size (includes targeted exams where dose is matched to clinical indication); or iterative reconstruction. Contrast material: ISVOUE; Contrast volume: 70 ml; Contrast route: INTRAVENOUS (IV); COMPARISON: CR XR CHEST PORTABLE 06/11/2025 6:57 PM FINDINGS: Pulmonary arteries: No CT evidence for pulmonary embolism. Aorta: Ectasia of the supravalvular ascending aorta maximum transverse dimension 3.4 cm. Lungs: Unremarkable. No consolidation. No masses. Pleural spaces: Unremarkable. No pneumothorax. No pleural effusion. Heart: Unremarkable. No cardiomegaly. No pericardial effusion. Lymph nodes: Unremarkable. No enlarged lymph nodes. Bones/joints: Unremarkable. No acute fracture. Soft tissues: Unremarkable. IMPRESSION: 1. No CT evidence for pulmonary embolism. 2. Ectasia of the supravalvular ascending aorta maximum transverse dimension 3.4 cm. 3. No acute infiltrates.
[2025-06-11 19:38] VITALS: BP 123/80; PULSE 62; RESP 12; O2SAT 100
[2025-06-11 20:00] LABS: Hepatitis C Ab Qual. W/ RFX NEGATIVE (Negative)
[2025-06-11 20:30] VITALS: BP 136/88; PULSE 74; RESP 15; O2SAT 99
[2025-06-11] MEDS: 0.9 % SODIUM CHLORIDE 50 ML VIAL IV (20:32)
[2025-06-11] MEDS: IOPAMIDOL-370 (76%);100ML BOTTLE 70 ML IV (20:32)
[2025-06-11] MEDS: SODIUM CHLORIDE 0.9% 10ML SYR (RAD ONLY) 10 ML IV (20:32)
[2025-06-11 21:23] VITALS: BP 146/97; PULSE 57; RESP 20; TEMP 36.8; O2SAT 98
== END 2025-06-11 21:28 | disposition home or self-care (01) ==
PROVIDERS: Physician Assistant; Emergency Provider Student in an Organized Health Care Education/Training Program; PCP Family Medicine
DX: R07.89 Other chest pain (principal); F41.1 Generalized anxiety disorder; Z87.891 Personal history of nicotine dependence
CPT/HCPCS: 71045; 71275; 80053; 83690; 83735; 83880; 84484; 84703; 85025; 85378; 85610; 86803; 87389; 93005; 99285; Q9967

== ENCOUNTER 2025-06-12 09:36 | Outpatient (CLI) | payer MEDICAID, SELFPAY ==
--- OUTSIDE RECORDS SUMMARY | 2025-06-12 09:39 | XMS_ITS | Clinical Summary ---
Author Organization Healthcare Address [address] [place] [address] Care Team Providers Care Food Service Specialist Name Role Phone Leilani Henry Primary Care Provider [phone] Social History Tobacco Use Types Packs/Day Years [...] of Treatment Not on file Care Teams Food Service Specialist Relationship Specialty Start Date End Date Leilani Henry PA [address] [place] [address] PCP - General 12/31/20
--- OUTSIDE RECORDS SUMMARY | 2025-06-12 09:39 | XMS_ITS | Clinical Summary ---
Author Organization [facility] yste Address [address] [place] [address] Care Team Providers Care Communications Operator Name Role Phone Matt Morgan MD Primary Care Provider [phone] Social History Tobacco Use Types Packs/Day Years [...] Description 09/21/2025 9:30 AM EST Office Visit [facility] NEUROLOGY [address] [facility] [address] [place] [address] Matias Mooney MD [address] [facility] [address] [place] [address] Health Maintenance Due Date Last [...] 3 Months Results * LABS SCANNED (03/30/2025) [facility] New Onbase LAB BLOOD ORDERABLES Final Re sult from Last 3 Months Insurance [facility] MEDICAID Care Teams Communications Operator Relationship Specialty Start Date End Date Matt Morgan MD [facility] [address] [address] PCP - General Family Medicine 05/08/25
== END 2025-06-12 23:59 | disposition home or self-care (01) ==
LOC: RT 09:37
PROVIDERS: PCP Family Medicine; Visit Provider Nurse Practitioner
DX: I49.1 Atrial premature depolarization (principal); I49.3 Ventricular premature depolarization; I47.10 Supraventricular tachycardia, unspecified; R55 Syncope and collapse
CPT/HCPCS: 93270

== ENCOUNTER 2025-06-16 08:45 | Outpatient (CLI) | payer MEDICAID, SELFPAY ==
--- NOTE | 2025-06-16 08:47 | XR_ITS ---
FINAL REPORT CLINICAL HISTORY: Assessment of fecal burden stomach pain FINDINGS: A single view of the abdomen was obtained. There is a nonobstructive bowel gas pattern. There are no abnormally dilated loops of small bowel. A few air-filled loops of nondilated small bowel are noted in the left hemiabdomen. There is a large amount of retained stool. IMPRESSION: 1. Nonobstructive bowel gas pattern. 2. Moderate large of retained stool. Reviewed, Interpreted and Dictated by Pop Sousa MD Transcribed by Debra Godinez Authenticated and [facility]
--- OUTSIDE RECORDS SUMMARY | 2025-06-16 08:53 | XMS_ITS | Clinical Summary ---
Author Organization [facility] yste Address [address] [place] [address] Care Team Providers Care Cloud Infrastructure Architect Name Role Phone Matt Morgan MD Primary Care Provider [phone] Social History Tobacco Use Types Packs/Day Years [...] Description 09/21/2025 9:30 AM EST Office Visit [facility] NEUROLOGY [address] [facility] [address] [place] [address] Matias Mooney MD [address] [facility] [address] [place] [address] Health Maintenance Due Date Last [...] 3 Months Results * LABS SCANNED (03/30/2025) [facility] New Onbase LAB BLOOD ORDERABLES Final Re sult from Last 3 Months Insurance [facility] MEDICAID Care Teams Cloud Infrastructure Architect Relationship Specialty Start Date End Date Matt Morgan MD [facility] [address] [address] PCP - General Family Medicine 05/08/25
--- OUTSIDE RECORDS SUMMARY | 2025-06-16 08:53 | XMS_ITS | Clinical Summary ---
Author Organization Healthcare Address [address] [place] [address] Care Team Providers Care Ecmo Specialist Name Role Phone Leilani Henry Primary Care Provider [phone] Social History Tobacco Use Types Packs/Day Years [...] of Treatment Not on file Care Teams Ecmo Specialist Relationship Specialty Start Date End Date Leilani Henry PA [address] [place] [address] PCP - General 12/31/20
== END 2025-06-16 23:59 | disposition home or self-care (01) ==
LOC: RAD 08:45
PROVIDERS: PCP Family Medicine; Visit Provider Internal Medicine Gastroenterology
DX: K59.00 Constipation, unspecified (principal); R93.3 Abnormal findings on diagnostic imaging of other parts of digestive tract
CPT/HCPCS: 74018

== ENCOUNTER 2025-06-17 10:19 | Outpatient (CLI) | payer MEDICAID, SELFPAY ==
--- NOTE | 2025-06-17 | CA_ITS ---
APPROVED REPORT Exam: Exercise Treadmill Technologist: Gay Patrick Stress Nurse: Elba PERALTA, RN Ht: 5 ft 1 in Wt: 139 lbs BSA: 1.62 m2 HR: 61 bpm BP: 118/83 mmHg Indications: Chest pressure Stress Test Details Test: Exercise stress testing was performed using a Kiko protocol. HR Resting HR: 61 bpm Max Heart Rate (APMHR): 184.316221 bpm Max HR Achieved: 168 bpm Target HR (85% APMHR): 156.571636 bpm % of APMHR: 91.30 Recovery HR: 89 bpm BP Resting BP: 118.0/83.0 mmHg Max BP: 150.0/82.0 mmHg Recovery BP: 115.0/80.0 mmHg ECG Stress ECG Conclusion Lungs clear to auscultation prior to test start. Symptoms: Leg fatigue Arrhythmias/Ectopy: None ST-T Changes: Less than 0.[address] segment changes. Conclusion: Holder Treadmill: +10 Electronically signed by : Fabienne Melo MD 06/21/2025 16:15:53
--- OUTSIDE RECORDS SUMMARY | 2025-06-17 10:28 | XMS_ITS | Patient Health Record ---
Author Organization [facility] Address [address] [place] [id number] Reason For Referral No Information Problems Problem Type SNOMED Code ICD Code Onset Dates Problem Status W/U Status Risk Notes Problem Post-traumati c stress disorder (35379563) Post-traumatic stress disorder, unspecified (F43.10) Active confirmed Plan Of Treatment No Information
--- OUTSIDE RECORDS SUMMARY | 2025-06-17 10:28 | XMS_ITS | Clinical Summary ---
Author Organization [facility] yste Address [address] [place] [address] Care Team Providers Care Shallot Cleaner Name Role Phone Matt Morgan MD Primary Care Provider [phone] Social History Tobacco Use Types Packs/Day Years [...] Description 09/21/2025 9:30 AM EST Office Visit [facility]UR[facility] [address] [facility] [address] [place] [address] Matias Mooney MD [address] [facility] [address] [place] [address] Health Maintenance Due Date Last [...] 3 Months Results * LABS SCANNED (03/30/2025) [facility] New Onbase LAB BLOOD ORDERABLES Final Re sult from Last 3 Months Insurance [facility] MEDICAID Care Teams Shallot Cleaner Relationship Specialty Start Date End Date Matt Morgan MD [facility] [address] [address] PCP - General Family Medicine 05/08/25
--- OUTSIDE RECORDS SUMMARY | 2025-06-17 10:28 | XMS_ITS | Clinical Summary ---
Author Organization Healthcare Address [address] [place] [address] Care Team Providers Care Him Analyst Name Role Phone Leilani Henry Primary Care Provider [phone] Social History Tobacco Use Types Packs/Day Years [...] of Treatment Not on file Care Teams Him Analyst Relationship Specialty Start Date End Date Leilani Henry PA [address] [place] [address] PCP - General 12/31/20
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
--- OUTSIDE RECORDS SUMMARY | 2025-06-17 10:29 | XMS_ITS | Patient Health Record ---
Author Organization [facility] Address [address] [place] [address] Care Team Providers Care Range Rider Name Role Phone [facility] Primary Care Pr ovider Unavailable Allergies [...] Status W/U Status Risk Notes Problem Asthma (040316590) Asthma (J45.909) Active confirmed Problem Smoker (66283658) Smoker (F17.200) Active confirmed Plan Of Treatment No Information Insurance Providers Payer Name Payer Address Payer Phone Subscriber Number Group Number Insured Name Patient Relationship to Insured Coverage Start Date Coverage End Date [employer] [address] [place] [address] [id number] Juli Lui Self - patient is the insured 4 Medical (General) History Medical History History ICD Code Asthma J45.909
[2025-06-17 10:40] VITALS: BP 118/83; BP 150/82; PULSE 61; RESP 14
== END 2025-06-17 23:59 | disposition home or self-care (01) ==
LOC: RT 10:19
PROVIDERS: PCP Family Medicine; Visit Provider Nurse Practitioner
DX: R94.31 Abnormal electrocardiogram [ECG] [EKG] (principal); R07.89 Other chest pain; R55 Syncope and collapse; R00.0 Tachycardia, unspecified
CPT/HCPCS: 93017; 93018

== ENCOUNTER 2025-06-18 10:39 | Outpatient (CLI) | payer MEDICAID, SELFPAY ==
--- OUTSIDE RECORDS SUMMARY | 2025-06-18 10:58 | XMS_ITS | Clinical Summary ---
Author Organization [facility] Address [address] [place] [address] Care Team Providers Care Textile Designer Name Role Phone Matt Morgan MD Primary Care Provider [phone] Social History Tobacco Use Types Packs/Day Years [...] Description 09/21/2025 9:30 AM EST Office Visit [facility] [address] [place] [address] Matias Mooney MD [address] [place] [address] Health Maintenance Due Date Last [...] 3 Months Results * LABS SCANNED (03/30/2025) [facility] New Onbase LAB BLOOD ORDERABLES Final Re sult from Last 3 Months Insurance [facility] MED[facility]ID Care Teams Textile Designer Relationship Specialty Start Date End Date Matt Morgan MD [facility] [address] [address] PCP - General Family Medicine 05/08/25
--- OUTSIDE RECORDS SUMMARY | 2025-06-18 10:58 | XMS_ITS | Clinical Summary ---
Author Organization [facility] Address [address] [place] [address] Care Team Providers Care De Alcholizer Name Role Phone Leilani Henry Primary Care Provider [phone] Social History Tobacco Use Types Packs/Day Years [...] of Treatment Not on file Care Teams De Alcholizer Relationship Specialty Start Date End Date Leilani Henry PA [address] [place] [address] PCP - General 12/31/20
--- OUTSIDE RECORDS SUMMARY | 2025-06-18 10:58 | XMS_ITS | Patient Health Record ---
Author Organization [facility] Address [address] [place] [phone] Reason For Referral No Information Problems Problem Type SNOMED Code ICD Code Onset Dates Problem Status W/U Status Risk Notes Problem Post-traumati c stress disorder (52673069) Post-traumatic stress disorder, unspecified (F43.10) Active confirmed Plan Of Treatment No Information
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
--- OUTSIDE RECORDS SUMMARY | 2025-06-18 10:59 | XMS_ITS | Patient Health Record ---
Author Organization [facility] Address [address] [facility] [address] [place] [address] Care Team Providers Care Management Trainee Program Stores Name Role Phone [facility] Primary Care Pr ovider Unavailable Allergies [...] Status W/U Status Risk Notes Problem Asthma (087300648) Asthma (J45.909) Active confirmed Problem Smoker (30626381) Smoker (F17.200) Active confirmed Plan Of Treatment No Information Insurance Providers Payer Name Payer Address Payer Phone Subscriber Number Group Number Insured Name Patient Relationship to Insured Coverage Start Date Coverage End Date [employer] [address] [place] [address] [id number] Juli Lui Self - patient is the insured 4 Medical (General) History Medical History History ICD Code Asthma J45.909
--- NOTE | 2025-06-18 11:00 | CA_ITS ---
APPROVED REPORT EXAM: Comprehensive 2D, Doppler, and color-flow Echocardiogram Television Producer: Jyoti Flores CRT Ht: 5 ft 1 in Wt: 141lbs BSA: 1.63 BP: 112/72 mmHg Indications: Chest Pain, Palpitations 2D Dimensions LA Volume 22.00 mL LA Volume Index 13.20 mL/m2 (M/F) 16-34 M-Mode Dimensions RVDd 2.49 cm (0.9-2.6) LA Diam 3.07 cm (1.9-4.0) LVDd 4.39 cm (3.5-5.7) LVDs 2.84 cm (3.5-5.7) IVSd 0.86 cm (0.6-1.1) PWd 0.91 cm (0.6-1.1) EF (Teich) 64.90% FS 35.30% EDV (Teich) 87.20 mL TAPSE 2.13 (<1.7) ESV (Teich) 30.60 mL LV Diastology E Decel Time 150 (160-240 msec) E/A Ratio 1.45 MED A' 9.70 cm/s LAT A' 10.20 cm/s Aortic Valve AO Peak GR. 8.30 mmHg Mitral Valve MV E Max Joaquín. 89.0 (40-130 cm/s) MV A Velocity 62.0 (40-130 cm/s) E/A Ratio 1.45 MV PHT 44.0 ms Pulmonary Valve PV Peak Velocity 114.0 (50-150 cm/s) Tricuspid Valve TR P. Velocity 233.00 cm/s RAP Estimate 10.00 mmHg RVSP 31.70 mmHg Left Ventricle The left ventricle is normal size. Left ventricular systolic function is normal. The left ventricular ejection fraction is within the normal range. There is normal left ventricular wall thickness. There is normal LV segmental wall motion. The left ventricular diastolic function is normal. LVEF is 55% Right Ventricle The right ventricle is mildly dilated. The right ventricular systolic function is normal. Atria The left atrium size is normal. The right atrium size is normal. There is no color Doppler evidence of interatrial shunt. Aortic Valve The aortic valve opens well. There is no hemodynamically significant aortic valvular stenosis. No aortic regurgitation is present. Mitral Valve The mitral valve is normal in structure. No evidence of mitral valve stenosis. Trace mitral regurgitation is present. Tricuspid Valve The tricuspid valve leaflets are thin and pliable. Mild tricuspid regurgitation. RVSP is 20-25 mmHg. Pulmonic Valve The pulmonary valve is grossly normal in structure. Trace pulmonic valve regurgitation is present. Great Vessels The aortic root is normal in size. IVC is normal in size and collapses >50% with inspiration. Pericardium There is no pericardial effusion. Other Information Study Quality: Fair Conclusion Normal biventricular systolic function. Mild RV dilation. Mild TR. In the setting of mild RV dilation, further evaluation with limited TTE + agitated saline administration, as well as pulmonary and/or sleep work-up, is suggested, if clinically indicated. Electronically signed by : Fabienne Melo MD 06/20/2025 01:13:43
== END 2025-06-18 23:59 | disposition home or self-care (01) ==
LOC: RT 10:39
PROVIDERS: PCP Family Medicine; Visit Provider Nurse Practitioner
DX: I07.1 Rheumatic tricuspid insufficiency (principal); R00.0 Tachycardia, unspecified; R55 Syncope and collapse; R00.2 Palpitations
CPT/HCPCS: 93306

== ENCOUNTER 2025-07-06 21:45 | Emergency (ER) | payer MEDICAID, SELFPAY ==
[2025-07-06 21:52] VITALS: BP 147/94; PULSE 72; RESP 16; TEMP 36.7; O2SAT 100; BMI 27.1
--- NOTE | 2025-07-06 22:01 | HMH.EDGENADL ---
Discharge Plan Disposition Patient Disposition: Home, Self-Care Condition: Good Prescriptions Prescriptions: New amoxicillin-pot clavulanate 875-125 mg tablet 1 tab PO BID 10 Days Qty: 20 0RF No Action albuterol sulfate [Ventolin HFA] 90 mcg/actuation HFA aerosol inhaler 1 puff inhalation QID PRN (Reason: soa) Qty: 8.5 4RF oxcarbazepine [Trileptal] 150 mg tablet 150 mg PO BID Qty: 60 2RF buspirone 5 mg tablet 5 mg PO BID Qty: 60 12RF Rx Instructions: Please take 1 tablet by mouth twice daily albuterol sulfate 2.5 mg /3 mL (0.083 %) solution for nebulization 2.5 mg inhalation Q6H Qty: 75 0RF hydroxyzine pamoate [Vistaril] 25 mg capsule 25 mg PO TID PRN (Reason: anxiety) 3 Days Qty: 10 0RF propranolol 20 mg tablet 20 mg PO BID Qty: 60 2RF ondansetron 4 mg tablet,disintegrating 4 mg PO Q6H PRN (Reason: nausea and vomiting) Qty: 10 0RF Referrals Follow up/Referrals: Matt Morgan MD [Primary Care Provider, Family Practice] - See instructions Activity Restrictions/Add. Instructions Additional Instructions/Restrictions: The antibiotics as prescribed for 10 days. Follow-up with your dentist as scheduled on . Return to the emergency department for any worsening symptoms such as facial swelling, facial redness, inability to open or close your mouth. Regarding your dizziness, follow-up with the ENT cardiology and neurology as scheduled. Return to the emergency department for any acute or worsening symptoms. Clinical Impressions Clinical Impression: Pain, dental, Dizziness Print Language Print Language: [place] Discharge ED Provider: Louisa Iverson General Adult HPI General Chief complaint: Dental/Oral Stated complaint: Pressure in jaw, nauseau, dizzy Time Seen by Provider: 07/06/25 22:01 Mode of Arrival: Ambulatory Description of Symptoms (Recalled from ER Triage Doc. by RN): Pt presents with left sided jaw pain that began 2 days ago which is now radiating into her jaw and neck. Pt states she cannot get into to see dentist until . Cannot pinpoint if she has a tooth that is hurting on top or bottom. History of Present Illness HPI narrative: Patient is a 35-year-old female who presents to the emergency department with left-sided jaw and tooth pain. Patient states that her symptoms started 2 days ago. Patient states that the pain is in the left side of her jaw it does hurt to chew and she feels like there is pressure in her jaw. Patient has not had any redness or swelling of the face. Patient states that she feels like there is pressure in the entire left side of her face. Patient denies any ear pain. Patient denies any eye symptoms. Patient states that she is unable to see her dentist on . Patient denies any drainage or difficulties opening or closing her mouth. States that she has some teeth that likely need to be removed. Patient states that she has had some dizziness that has been present for over a year and she is seeing ENT, cardiology as well as neurology and has had an extensive workup for this. Patient states that she has not had a clear etiology of her symptoms this has been a persistent issue that is not new today. Denies any fevers. Patient denies any recent trauma or falls. Patient states that she has significant mental health medical problems including depression anxiety PTSD. Related Data Previous Rx's ?Medication ?Instructions ?Recorded albuterol sulfate 90 mcg/actuation 1 puff inhalation QID PRN soa #8.5 06/27/24 aerosol inhaler (Ventolin HFA) grams albuterol sulfate 2.5 mg/3 mL 2.5 mg (3 mL) inhalation Q6H #75 mL 12/29/24 (0.083 %) solution for nebulization hydroxyzine pamoate 25 mg capsule 25 mg PO TID PRN anxiety 3 days 02/05/25 (Vistaril) #10 caps ondansetron 4 mg disintegrating 4 mg PO Q6H PRN nausea and 03/21/25 tablet vomiting #10 tabs oxcarbazepine 150 mg tablet 150 mg PO BID #60 tabs 04/17/25 (Trileptal) propranolol 20 mg tablet 20 mg PO BID #60 tabs 06/12/25 buspirone 5 mg tablet 5 mg PO BID #60 tabs 06/16/25 amoxicillin 875 mg-potassium 1 tab PO BID 10 days #20 tabs 07/06/25 clavulanate 125 mg tablet Allergies Allergy/AdvReac Type Severity Reaction Status Date / Time No Known Allergies Allergy Verified 06/30/25 15:53 [facility] Disclaimer: The information contained in this section may have been updated after the patient was seen, as this information can be updated by other users. Medical History Palpitation Lump of right breast Abnormal mammogram of right breast Breast pain, left Abnormal mammogram of left breast Vertigo Vitamin B deficiency Episodic migraine History of anemia History of gastroesophageal reflux (GERD) History of asthma History of dizziness Tobacco use Episodic lightheadedness BPPV (benign paroxysmal positional vertigo) Normal hearing test of both ears Tinnitus aurium Impacted cerumen, right ear Tinnitus intermittent Chronic headaches Depression Anxiety Tobacco dependence syndrome Dyspnea Sinusitis Vaginal discharge Asthma Surgical History History of tubal ligation History of section History of cholecystectomy Family History Grandmother Cancer breast cancer in her 90's Other Coronary artery disease Diabetes Family history of hypothyroidism Family history of myocardial infarction Hypertension Thyroid disorder Social History Smoking Status: Never smoker second hand exposure: Yes alcohol intake: never substance use type: denies use current occupational status: other Travel in the last 8 weeks?: None household members: spouse, family and children housing: house Have you lived/traveled outside US in past 30 days?: No Contact w/someone who lives/traveled outside US past 30 days?: No Exposure to someone with infectious disease in past 14 days?: No Do you have a fever (greater than 100.4 F or 38 C)?: No Have you tested positive for COVID-19?: No Exposed to someone with COVID-19 in past 14 days?: No Do you have a sore throat?: No Do you have a cough?: No Do you have any weakness?: No Do you have any diarrhea?: No Are you experiencing any unusual bleeding?: No Do you have any muscle aches/pain?: No Do you have any abdominal pain?: No Are you experiencing loss of taste or smell?: No Other Medical History Have you received the Flu Vaccine for this season: No Have you received the Pneumonia Vaccine: No ROS Obtained: Yes All systems reviewed & no additional complaints except as documented and Yes Systems reviewed as appropriate & no additional complaints except as documented Physical Exam General General appearance: alert and in no apparent distress Head Head exam: atraumatic, normocephalic and normal inspection Eye Eye exam: Present normal appearance, PERRL and EOMI; Absent scleral icterus ENT ENT exam: Present normal exam, normal external ear exam and other (L face without erythema or swelling, no trismus, no submandibular swelling, upper left molars with tenderness on percussion) Neck Neck exam: Present normal inspection and full ROM Chest Chest inspection: Present normal inspection and symmetric chest wall rise Respiratory Respiratory exam: Present normal lung sounds bilaterally; Absent respiratory distress or wheezes Cardiovascular Cardiovascular exam: Present regular rate, normal rhythm and normal heart sounds Abdominal Exam Abdominal exam: Present soft and distention; Absent tenderness, guarding or rebound Extremities Exam Extremities exam: Present normal inspection and full ROM Back Exam Back exam: Present normal inspection and full ROM Neurological Exam Neurological exam: Present alert and oriented X3 Psychiatric Psychiatric exam: Present normal affect and normal mood Skin Skin exam: Present warm and dry Medical Decision Making Medical Records Medical records reviewed: Yes I reviewed the patient's medical records. Screening: Per USPSTF and CDC recommendations, given the prevalence of disease in our region, it is our hospital?s policy to screen for HIV and viral Hepatitis for all patients aged 18 and over and those with ongoing risk factors. David Inquiry Pt receiving controlled substance: No Vital Signs: 07/06/25 21:52 Temperature 98.1 F Temperature Source Oral Pulse Rate [Left] 72 Respiratory Rate 16 Blood Pressure [Right Arm] 147/94 H Blood Pressure Mean [Right Arm] 111 Blood Pressure Source [Right Arm] Automatic Cuff Blood Pressure Position [Right Arm] Sitting 02 Sat by Pulse Oximetry 100 Oxygen Delivery Method Room Air Lab Data Lab results reviewed: Yes I reviewed the patient's lab results. Lab Results 07/06/25 22:35: WBC 6.2, RBC 4.35, Hgb 13.5, Hct 38.9, MCV 89.4, MCH 31.0, MCHC 34.7, RDW 11.9, Plt Count 200, MPV 10.4, Neut % (Auto) 60.1, Lymph % (Auto) 31.3, [place] % (Auto) 6.9, Eos % (Auto) 1.0, Baso % (Auto) 0.5, Neut # (Auto) 3.8, Lymph # (Auto) 2.0, [place] # (Auto) 0.4, Eos # (Auto) 0.1, Baso # (Auto) 0.0, Sodium 134 L, Potassium 3.7, Chloride 104, Carbon Dioxide 23, Anion Gap 10.7, BUN 9, Creatinine 0.70, Estimated Creat Clear 115, Estimated GFR 95, Est GFR ( Amer) 115, Glucose 112 H, Calcium 8.7, Total Bilirubin 0.4, AST 24, ALT 20, Alkaline Phosphatase 59, Troponin I < 0.01, Total Protein 6.9, Albumin 4.4, Globulin 2.5, Albumin/Globulin Ratio 1.8, Lipase 49, Serum HCG, Qual Negative 07/06/25 22:35 07/06/25 22:35 Orders (Tests/Meds): ED MEDICATIONS Discontinued Medications Generic Name Dose Route Start Last Admin Trade Name Freq PRN Reason Stop Dose Admin Amoxicillin/Clavulanate Potassium 1 each 07/06/25 22:19 07/06/25 22:33 Amoxicillin/Clavulanate Potassium 875/125mg Tablet PO 07/06/25 22:20 1 each ONCE ONE Administration ORDERS Category Date Time Status CBC w/Auto Diff [Complete Blood Count Auto Diff] Stat Lab 07/06/25 22:35 Completed CMP [Comprehensive Metabolic Panel] Stat Lab 07/06/25 22:35 Completed HCG Qualitative, Serum Stat Lab 07/06/25 22:35 Completed Lipase Stat Lab 07/06/25 22:35 Completed Trop I [Troponin I] Stat Lab 07/06/25 22:35 Completed Troponin I Q3H Lab 07/07/25 01:30 Ordered Troponin I Q3H Lab 07/07/25 04:30 Ordered Medical Decision Narrative: Patient is a 35-year-old female with a past medical history of depression, anxiety, PTSD who presented to the emergency department with concern for left jaw pain and dental pain as well as dizziness. On arrival, patient was hemodynamically stable with unremarkable vital signs. Differential includes but not limited to: See showed no leukocytosis, hemoglobin was stable. CMP was unremarkable. Troponin was less than 0.01. EKG was reviewed and interpreted by myself and showed normal sinus rhythm without acute ST or T wave changes concerning for ischemia. Patient was given a dose of Augmentin in the emergency department with concern for her dental pain. Patient has a follow-up with her dentist on . I had an extensive discussion with the patient regarding her dizziness today. Patient states that it is chronic at baseline and this has not been new. Patient follows with ENT cardiology and neurology for this. I discussed that I could do basic labs but given that her symptoms are unchanged today patient already has specialists for this further workup likely was not needed at this time. Patient had no facial swelling or trismus or any submandibular swelling to suggest [place]. I did not feel that CT face was warranted as she had no swelling or signs of cellulitis. Patient was sent with Augmentin and advised to follow-up with her dentist. Patient was otherwise discharged home in stable condition return precautions were discussed Critical Care Critical Care Time Critical Care Time: No
--- NOTE | 2025-07-06 22:27 | ECG_ITS ---
APPROVED REPORT Exam: Resting ECG HR:71 bpm ECG Measurements Heart Rate [address] 142 P 66 QRSd 94 QRS 33 QT 378 T 47 QTc 401 Conclusion Normal sinus rhythm without acute ST or T wave changes concerning for ischemia Electronically signed by : Louisa Iverson, 07/07/2025 00:03:58
[2025-07-06] MEDS: AMOXICILLIN/CLAVULANATE POTASSIUM 875/125MG TABLET 1 EACH PO (22:33)
[2025-07-06 22:47] LABS: Hematocrit 38.9 % (37.0-47.0); Hemoglobin 13.5 g/dL (12.2-16.2); Immature Granulocytes % 0.2 %; Mean Corpuscular HGB Conc 34.7 g/dL (31.8-35.4); Mean Corpuscular Hemoglobin 31.0 pg (27.0-31.2); Mean Corpuscular Volume 89.4 fl (81-99); Nucleated Red Blood Cells % 0 %; Platelet Count 200 K/mm3 (142-424); Red Blood Count 4.35 M/mm3 (4.20-5.40); Red Cell Distribution Width-SD 39.0 fL; White Blood Count 6.2 K/mm3 (4.8-10.8)
[2025-07-06 23:04] LABS: HCG Qualitative, Serum Negative (Negative)
[2025-07-06 23:06] LABS: Alanine Aminotransferase 20 U/L (12-78); Albumin Level 4.4 g/dl (3.5-5.0); Albumin/Globulin Ratio 1.8 (1.1-1.8); Alkaline Phosphatase 59 U/L (38-126); Anion Gap 10.7 mEq/L (5-15); Aspartate Amino Transferase 24 U/L (14-36); Bilirubin,Total 0.4 mg/dl (0.2-1.3); Blood Urea Nitrogen 9 mg/dl (7-17); Calcium 8.7 mg/dl (8.4-10.2); Carbon Dioxide 23 mmol/L (22.0-30.0); Chloride 104 mmol/L (98-107); Creatinine Clearance Estimated 115 mL/min (50-200); Creatinine,Serum 0.70 mg/dl (0.52-1.04); Estimated Glomerular Filt Rate 95 ml/min (>60); GFR (African American) 115 ML/MIN (>60); Globulin 2.5 g/dL (1.3-3.2); Glucose 112 mg/dl (74-100); Lipase 49 U/L (23-300); Potassium 3.7 mmoL/L (3.5-5.1); Sodium 134 mmol/L (136-145); Total Protein,Serum 6.9 g/dl (6.3-8.2)
[2025-07-06 23:24] LABS: Troponin I < 0.01 ng/ml (0.00-0.034)
[2025-07-07] VITALS: BP 124/87; PULSE 77; RESP 16; TEMP 36.8; O2SAT 99
== END 2025-07-07 00:02 | disposition home or self-care (01) ==
PROVIDERS: Emergency Provider Student in an Organized Health Care Education/Training Program; PCP Family Medicine
DX: R42 Dizziness and giddiness (principal); K08.89 Other specified disorders of teeth and supporting structures
CPT/HCPCS: 80053; 83690; 84484; 84703; 85025; 93005; 99284

== ENCOUNTER 2025-08-14 09:29 | Outpatient (CLI) | payer MEDICAID, SELFPAY ==
--- NOTE | 2025-08-14 09:30 | CA_ITS ---
APPROVED REPORT EXAM: Comprehensive 2D, Doppler, and color-flow Echocardiogram Cuprous Chloride Operator: SOUMYA Meza, RVS Ht: 5 ft 1 in Wt: 144lbs BSA: 1.64 BP: 129/86 mmHg Indications: RVE, Palpitations, Anxiety, Ex-smoker Echo Enhancing Agent Indication: Rule Out Septal Defect Agent(s) / Amount(s) Used: Agitated Saline 20 cc 2D Dimensions Left Atrium 2.73 cm F: 2.7 - 3.8 LA Volume 32.90 mL LA Volume Index 20.959930 mL/m2 (M/F) 16-34 M-Mode Dimensions RVDd 1.35 cm (0.9-2.6) LA Diam 3.19 cm (1.9-4.0) LVDd 5.20 cm (3.5-5.7) LVDs 3.73 cm (3.5-5.7) IVSd 1.00 cm (0.6-1.1) PWd 0.81 cm (0.6-1.1) EF (Teich) 54.20% EPSs 1.22 cm FS 28.30% EDV (Teich) 129.50 mL TAPSE 1.97 (<1.7) ESV (Teich) 59.30 mL LV Diastology E Decel Time 163 (160-240 msec) E/A Ratio 1.11 MED A' 7.40 cm/s LAT A' 8.10 cm/s Aortic Valve LAYO Index 1.05 cm2/m2 AoV Peak Joaquín. 140.0 (50-130 cm/s) AI PHT 577.00 ms AO Peak GR. 7.90 mmHg AO Mean GR. 4.00 (<5 mmHg) AO VTI 32.3 (18-25 cm) LAYO (VTI) 1.77 (2.5-4.5 cm2) Mitral Valve MV A Velocity 71.0 (40-130 cm/s) E/A Ratio 1.11 Pulmonary Valve PV Peak Velocity 84.0 (50-150 cm/s) Tricuspid Valve TR P. Velocity 220.00 cm/s RAP Estimate 10.00 mmHg RVSP 29.40 mmHg Left Ventricle The left ventricle is normal size. Left ventricular systolic function is normal. The left ventricular ejection fraction is within the normal range. There is normal left ventricular wall thickness. There is normal LV segmental wall motion. The left ventricular diastolic function is normal. LVEF is 55% Right Ventricle The right ventricle is normal size. The right ventricular systolic function is normal. Atria Left atrium is mildly dilated. Right atrium is mildly dilated. There is no color Doppler evidence of interatrial shunt. Aortic Valve The aortic valve opens well. There is no hemodynamically significant aortic valvular stenosis. Mild aortic regurgitation is present. Mitral Valve The mitral valve is normal in structure. No evidence of mitral valve stenosis. Mild mitral regurgitation is present. Tricuspid Valve The tricuspid valve leaflets are thin and pliable. Mild tricuspid regurgitation. RVSP is 20 mmHg + RA pressure. Pulmonic Valve The pulmonary valve is grossly normal in structure. Trace pulmonic valve regurgitation is present. Great Vessels The aortic root is normal in size. IVC is not well visualized. Pericardium There is no pericardial effusion. Other Information Study Quality: Fair Conclusion Normal biventricular systolic function. Mild biatrial dilation. Mild AI, mild MR, mild TR. Electronically signed by : Fabienne Melo MD 08/18/2025 12:21:57
--- OUTSIDE RECORDS SUMMARY | 2025-08-14 09:32 | XMS_ITS | Clinical Summary ---
Author Organization Healthcare Address [address] [place] [address] Care Team Providers Care Neon Sign Installer Name Role Phone Leilani Henry Primary Care Provider [phone] Social History Tobacco Use Types Packs/Day Years [...] of Treatment Not on file Care Teams Neon Sign Installer Relationship Specialty Start Date End Date Leilani Henry PA [address] [place] [address] PCP - General 12/31/20
--- OUTSIDE RECORDS SUMMARY | 2025-08-14 09:32 | XMS_ITS | Patient Health Record ---
Author Organization [facility] Address [address] [facility] [address] [place] [address] Care Team Providers Care Hammer Adjuster Name Role Phone [facility] Primary Care Pr ovider Unavailable [...] Status W/U Status Risk Notes Problem Asthma (647756890) Asthma (J45.909) Active confirmed Problem Smoker (79271246) Smoker (F17.200) Active confirmed Plan Of Treatment No Information Insurance Providers Payer Name Payer Address Payer Phone Subscriber Number Group Number Insured Name Patient Relationship to Insured Coverage Start Date Coverage End Date Amb[employer] [address] [facility] [place] [address] [id number] Juli Lui Self - patient is the insured 4 Medical (General) History Medical History History ICD Code Asthma J45.909
--- OUTSIDE RECORDS SUMMARY | 2025-08-14 09:32 | XMS_ITS | Clinical Summary ---
Author Organization [facility] Address [address] [place] [address] Care Team Providers Care Esthetician Spa Name Role Phone Matt Morgan MD Primary Care Provider [phone] Social History Tobacco Use Types Packs/Day Years [...] Description 09/21/2025 9:30 AM EST Office Visit [facility] [address] [facility] [address] [place] [address] Matias Mooney MD [address] [facility] [address] [place] [address] Health Maintenance Due Date Last Done Comments ANNUAL PHYSICAL 1989 Annual Gynecologic Pelvic an d Breast Exam 1989 HEPATITIS C SCREENING 1989 TDAP/TD VACCINES (1 - Tdap) 2008 INFLUENZA VACCINE 03/20/2025 Pneumococcal Vaccine 0-49 Aged Out No longer eligible based on patient's age to complete this topic Insurance [facility] MEDICAID Care Teams Esthetician Spa Relationship Specialty Start Date End Date Matt Morgan MD Replaced by [facility] [place] [address] PCP - General Family Medicine 05/08/25
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
--- OUTSIDE RECORDS SUMMARY | 2025-08-14 09:32 | XMS_ITS | Patient Health Record ---
Author Organization [facility] Address [address] [place] [phone] Reason For Referral No Information Problems Problem Type SNOMED Code ICD Code Onset Dates Problem Status W/U Status Risk Notes Problem Post-traumati c stress disorder (60729643) Post-traumatic stress disorder, unspecified (F43.10) Active confirmed Plan Of Treatment No Information
== END 2025-08-14 23:59 | disposition home or self-care (01) ==
LOC: RT 09:30
PROVIDERS: PCP Family Medicine; Visit Provider Nurse Practitioner
DX: I08.3 Combined rheumatic disorders of mitral, aortic and tricuspid valves (principal); F41.9 Anxiety disorder, unspecified; Z87.891 Personal history of nicotine dependence; R41.89 Other symptoms and signs involving cognitive functions and awareness
CPT/HCPCS: 93306